=== PATIENT | male | born 1945 | race Caucasian/White ===

== ENCOUNTER → 2017-06-18 | Outpatient (CLI) | payer MEDICARE, OTHER ==
--- NOTE | 2017-06-18 15:43 | US ---
EXAMINATION TYPE: US carotid duplex BILAT DATE OF EXAM: 06/18/2017 COMPARISON: NONE CLINICAL HISTORY: 71-year-old male I65.23 Occlusion And Stenosis Of Bilateral Carotid. TECHNIQUE: Carotid duplex ultrasound examination. Indirect Doppler criteria was utilized. FINDINGS: Esquivel scale images show mild atherosclerotic changes at the left bifurcation. EXAM MEASUREMENTS: RIGHT: Peak Systolic Velocity (PSV) cm/sec ----- Right CCA: 105 ----- Right ICA: 130 ----- Right ECA: 177 ICA/CCA ratio: 1.2 RIGHT: End Diastole cm/sec ----- Right CCA: 25.1 ----- Right ICA: 33.3 ----- Right ECA: 26.5 LEFT: Peak Systolic Velocity (PSV) cm/sec ----- Left CCA: 99.2 ----- Left ICA: 105 ----- Left ECA: 159 ICA/CCA ratio: 1.1 LEFT: End Diastole cm/sec ----- Left CCA: 25.1 ----- Left ICA: 16.3 ----- Left ECA: 25.6 VERTEBRALS (direction of flow): Right Vertebral: Antegrade Left Vertebral: Antegrade Rhythm: Normal Sba Underwriter notes: there are some elevated velocities right ECA, and left ECA. IMPRESSION: No hemodynamically significant stenosis appreciated in either internal carotid artery. Criteria for Assigning % of Stenosis / Diameter reduction (Estimation based on the indirect measurements of the internal carotid artery velocities (ICA PSV). 1. Normal (no stenosis)=ICA PSV < 125 cm/s: ratio < 2.0: ICA EDV<40 cm/s. 2. Less than 50% stenosis=ICA PSV < 125 cm/s: ratio < 2.0: ICA EDV<40 cm/s. 3. 50 to 69% stenosis=ICA PSV of 125 to 230 cm/s: ration 2.0 ? 4.0: ICA EDV 40-100 cm/s. 4. Greater than 70% stenosis to near occlusion= ICA PSV > 230 cm/s: ratio > 4.0: ICA EDV > 100 cm/s. 5. Near occlusion= ICA PSV velocities may be low or undetectable: variable ratio and ICA EDV. 6. Total occlusion=unable to detect flow.
== END | disposition home or self-care (01) ==
LOC: RADUSWWP 14:42
PROVIDERS: ATTEND Family Medicine
DX: I65.23 Occlusion and stenosis of bilateral carotid arteries (principal)
CPT/HCPCS: 93880

== ENCOUNTER 2019-06-21 11:34 | Observation (INO) | payer MEDICARE, OTHER ==
[2019-06-21] MEDS ORDERED: SODIUM CHLORIDE 0.9% 500 ML 500 ML IV STA (12:03)
[2019-06-21 12:04] LABS: Glucose,Whole Blood 114 mg/dL (75-99)
--- NOTE | 2019-06-21 12:06 | ED ---
General Adult HPI - General Chief complaint: Neuro Symptoms/Deficit Stated complaint: confusion Time Seen by Provider: 06/21/19 11:51 Source: patient, RN notes reviewed, old records reviewed Mode of arrival: wheelchair Limitations: no limitations - History of Present Illness Initial comments: 73-year-old male history of hypertension diabetes presenting for evaluation of confusion, amnesia, and repetitive speech. Time course is not exactly known, it is believed the patient's symptoms began at approximately 9 AM this morning. He had taken a shower, called his who was out of the house and had repetitive speech, no reported slurred speech. Patient does not recall these phone calls, he does recall having taken a shower this morning at approximately 9 AM. He had made several additional calls to his noted which she remembers. He denies any headache. Denies focal numbness or weakness. Denies any symptoms at the time my evaluation with the exception of not remembering the events. No chest pain, no dyspnea, no fever, no nausea vomiting. Patient does take [place] for chronic pain, he took this earlier this morning, this is not abnormal he takes his medication daily. - Related Data Allergies Allergy/AdvReac Type Severity Reaction Status Date / Time No Known Allergies Allergy Verified 06/21/19 11:45 Review of Systems ROS Statement: Those systems with pertinent positive or pertinent negative responses have been documented in the HPI. ROS Other: All systems not noted in ROS Statement are negative. Past Medical History Past Medical History: Hyperlipidemia, Hypertension Additional Past Medical History / Comment(s): neuropathy in legs History of Any Multi-Drug Resistant Organisms: None Reported Past Surgical History: Hernia Repair, Orthopedic Surgery Additional Past Surgical History / Comment(s): right knee surgery, cancerous prostate removed, tarsal tunnel surgery on left foot. Past Psychological History: No Psychological Hx Reported Smoking Status: Never smoker Past Alcohol Use History: None Reported Past Drug Use History: None Reported General Exam Limitations: no limitations General appearance: alert, in no apparent distress Head exam: Present: atraumatic, normocephalic Eye exam: Present: normal appearance, PERRL, EOMI. Absent: scleral icterus ENT exam: Present: normal exam, mucous membranes moist Neck exam: Present: normal inspection. Absent: tenderness, meningismus Respiratory exam: Present: normal lung sounds bilaterally. Absent: respiratory distress, wheezes, rales Cardiovascular Exam: Present: regular rate, normal rhythm GI/Abdominal exam: Present: soft. Absent: distended, tenderness Extremities exam: Present: normal inspection, normal capillary refill. Absent: pedal edema Back exam: Present: normal inspection, full ROM Neurological exam: Present: alert, oriented X3, CN II-XII intact, other (No ataxia, normal finger to nose, 5 out of 5 strength in all extremities.). Absent: motor sensory deficit Psychiatric exam: Present: normal affect, normal mood Skin exam: Present: warm, dry, intact Course Vital Signs 06/21/19 06/21/19 06/21/19 11:40 11:56 12:00 Temperature 98.1 F Pulse Rate 73 68 67 Respiratory 17 12 18 Rate Blood Pressure 126/68 122/79 O2 Sat by Pulse 96 95 Oximetry 06/21/19 13:01 Temperature Pulse Rate 62 Respiratory 14 Rate Blood Pressure 138/67 O2 Sat by Pulse 95 Oximetry EKG Findings - EKG Comments: EKG Findings:: EKG: Sinus rhythm with PAC, rate of 67, OR interval 150, QRS duration 84, QTC 399, no definitive signs of ischemia, no ST segment elevation. Medical Decision Making - Medical Decision Making 73-year-old male presenting with an episode of confusion and amnesia. Patient well-appearing at the time my evaluation he has a nonfocal neurologic exam he is stable vital signs. Workup was initiated in the emergency department, patient has a EKG which shows sinus rhythm he is a head CT which is negative for intracranial hemorrhage mass effect. He has normal CBC, normal electrolytes. Chest x-ray negative for any acute cardiopulmonary disease. He is given an aspirin in the emergency department if symptoms are completely resolved consistent with suspected TIA. He will be admitted for neurology evaluation and further workup. - Lab Data Result diagrams: 06/21/19 12:20 06/21/19 12:20 Lab Results 06/21/19 06/21/19 06/21/19 Range/Units 11:58 12:20 12:20 WBC 5.3 (3.8-10.6) k/uL RBC 4.38 (4.30-5.90) m/uL Hgb 13.2 (13.0-17.5) gm/dL Hct 38.8 L (39.0-53.0) % MCV 88.6 (80.0-100.0) fL MCH 30.2 (25.0-35.0) pg MCHC 34.1 (31.0-37.0) g/dL RDW 13.4 (11.5-15.5) % Plt Count 168 (150-450) k/uL Neutrophils % 73 % Lymphocytes % 19 % Monocytes % 4 % Eosinophils % 1 % Basophils % 1 % Neutrophils # 3.9 (1.3-7.7) k/uL Lymphocytes # 1.0 (1.0-4.8) k/uL Monocytes # 0.2 (0-1.0) k/uL Eosinophils # 0.1 (0-0.7) k/uL Basophils # 0.0 (0-0.2) k/uL PT (9.0-12.0) sec INR (<1.2) APTT (22.0-30.0) sec Sodium 140 (137-145) mmol/L Potassium 4.2 (3.5-5.1) mmol/L Chloride 105 (98-107) mmol/L Carbon Dioxide 25 (22-30) mmol/L Anion Gap 10 mmol/L BUN 16 (9-20) mg/dL Creatinine 0.77 (0.66-1.25) mg/dL Est GFR (CKD-EPI)AfAm >90 (>60 ml/min/1.73 sqM) Est GFR (CKD-EPI)NonAf >90 (>60 ml/min/1.73 sqM) Glucose 100 H (74-99) mg/dL POC Glucose (mg/dL) 114 H (75-99) mg/dL POC Glu Formal Waiter/Waitress [place] Calcium 9.7 (8.4-10.2) mg/dL Total Bilirubin 0.9 (0.2-1.3) mg/dL AST 34 (17-59) U/L ALT 30 (21-72) U/L Alkaline Phosphatase 100 (38-126) U/L Total Protein 7.0 (6.3-8.2) g/dL Albumin 4.6 (3.5-5.0) g/dL 06/21/19 Range/Units 12:20 WBC (3.8-10.6) k/uL RBC (4.30-5.90) m/uL Hgb (13.0-17.5) gm/dL Hct (39.0-53.0) % MCV (80.0-100.0) fL MCH (25.0-35.0) pg MCHC (31.0-37.0) g/dL RDW (11.5-15.5) % Plt Count (150-450) k/uL Neutrophils % % Lymphocytes % % Monocytes % % Eosinophils % % Basophils % % Neutrophils # (1.3-7.7) k/uL Lymphocytes # (1.0-4.8) k/uL Monocytes # (0-1.0) k/uL Eosinophils # (0-0.7) k/uL Basophils # (0-0.2) k/uL PT 9.8 (9.0-12.0) sec INR 0.9 (<1.2) APTT 25.7 (22.0-30.0) sec Sodium (137-145) mmol/L Potassium (3.5-5.1) mmol/L Chloride (98-107) mmol/L Carbon Dioxide (22-30) mmol/L Anion Gap mmol/L BUN (9-20) mg/dL Creatinine (0.66-1.25) mg/dL Est GFR (CKD-EPI)AfAm (>60 ml/min/1.73 sqM) Est GFR (CKD-EPI)NonAf (>60 ml/min/1.73 sqM) Glucose (74-99) mg/dL POC Glucose (mg/dL) (75-99) mg/dL POC Glu Formal Waiter/Waitress ID Calcium (8.4-10.2) mg/dL Total Bilirubin (0.2-1.3) mg/dL AST (17-59) U/L ALT (21-72) U/L Alkaline Phosphatase (38-126) U/L Total Protein (6.3-8.2) g/dL Albumin (3.5-5.0) g/dL Disposition Clinical Impression: Transient cerebral ischemia Disposition: ADMITTED IP TO THIS [facility] Condition: Stable Is patient prescribed a controlled substance at d/c from ED?: No Referrals: Denis Dawson DO [Primary Care Provider] - 1-2 days Decision to Admit Reason: Admit from EC Decision Date: 06/21/19 Decision Time: 13:44
[2019-06-21 12:40] LABS: Basophils % (A) 1 %; Eosinophils # (A) 0.1 k/uL (0-0.7); Eosinophils % (A) 1 %; HCT 38.8 % (39.0-53.0); HGB 13.2 gm/dL (13.0-17.5); Lymphocytes % (A) 19 %; MCH 30.2 pg (25.0-35.0); MCHC 34.1 g/dL (31.0-37.0); MCV 88.6 fL (80.0-100.0); Mean Platelet Volume 7.5; Monocytes # (A) 0.2 k/uL (0-1.0); Monocytes % (A) 4 %; Neutrophils # (A) 3.9 k/uL (1.3-7.7); Neutrophils % (A) 73 %; Platelet Count 168 k/uL (150-450); RBC 4.38 m/uL (4.30-5.90); RDW 13.4 % (11.5-15.5); WBC 5.3 k/uL (3.8-10.6)
--- NOTE | 2019-06-21 12:42 | CT ---
EXAMINATION TYPE: CT brain wo con DATE OF EXAM: 06/21/2019 COMPARISON: None INDICATION: confusion DLP: 1113.4 mGycm, Automated exposure control for dose reduction was used. CONTRAST: None CT of the brain is performed utilizing 3 mm thick sections through the posterior fossa and 3 mm thick sections through the remaining calvarium. Study is performed within 24 hours of arrival to the hosp ital. No abnormal hyperdensity is present to suggest an acute intracranial hemorrhage. No mass lesion is evident. No acute infarcts are evident. Ventricles and sulci are appropriate for the patient age. Paranasal sinuses and mastoid air cells within the [id number] are clear. IMPRESSIONS: 1. No acute intracranial process.
--- NOTE | 2019-06-21 12:43 | XR ---
EXAMINATION TYPE: XR chest 2V DATE OF EXAM: 06/21/2019 COMPARISON: None INDICATION: Altered mental status TECHNIQUE: Frontal and lateral views of the chest are obtained. FINDINGS: The heart size is normal. The pulmonary vasculature is normal. The lungs are clear. IMPRESSION: 1. No acute pulmonary process.
[2019-06-21 12:46] LABS: INR 0.9 (<1.2); Partial Thromboplastin Time 25.7 sec (22.0-30.0); Prothrombin Time 9.8 sec (9.0-12.0)
[2019-06-21 12:48] LABS: ALT 30 U/L (21-72); AST 34 U/L (17-59); African American GFR (CKD) >90 (>60 ml/min/1.73 sqM); Albumin 4.6 g/dL (3.5-5.0); Alkaline Phosphatase 100 U/L (38-126); Anion Gap 10 mmol/L; Blood Urea Nitrogen 16 mg/dL (9-20); Calcium 9.7 mg/dL (8.4-10.2); Carbon Dioxide 25 mmol/L (22-30); Chloride 105 mmol/L (98-107); Glucose 100 mg/dL (74-99); Non-African American GFR(CKD) >90 (>60 ml/min/1.73 sqM); Potassium 4.2 mmol/L (3.5-5.1); Sodium 140 mmol/L (137-145); Total Bilirubin 0.9 mg/dL (0.2-1.3)
[2019-06-21] MEDS ORDERED: ASPIRIN 325 MG TAB PO STA (13:10)
--- NOTE | 2019-06-21 15:01 | US ---
EXAMINATION TYPE: US carotid duplex BILAT DATE OF EXAM: 06/21/2019 COMPARISON: Carotid ultrasound 2017 CLINICAL HISTORY: Stenosis. Confusion, exam done portable. EXAM MEASUREMENTS: RIGHT: Peak Systolic Velocity (PSV) cm/sec ----- Right CCA: 50.7 ----- Right ICA: 124.1 ----- Right ECA: 99.2 ICA/CCA ratio: 2.4 RIGHT: End Diastole cm/sec ----- Right CCA: 12.0 ----- Right ICA: 42.8 ----- Right ECA: 7.3 LEFT: Peak Systolic Velocity (PSV) cm/sec ----- Left CCA: 52.9 ----- Left ICA: 74.4 ----- Left ECA: 77.1 ICA/CCA ratio: 1.4 LEFT: End Diastole cm/sec ----- Left CCA: 12.7 ----- Left ICA: 23.0 ----- Left ECA: 8.7 VERTEBRALS (direction of flow): Right Vertebral: Antegrade Left Vertebral: Antegrade Rhythm: Normal Mild peripheral plaque. Borderline mild elevated velocity right internal carotid artery. IMPRESSION: No hemodynamically significant stenosis clearly seen in either internal carotid artery. Criteria for Assigning % of Stenosis / Diameter reduction (Estimation based on the indirect measurements of the internal carotid artery velocities (ICA PSV). 1. Normal (no stenosis)=ICA PSV < 125 cm/s: ratio < 2.0: ICA EDV<40 cm/s. 2. Less than 50% stenosis=ICA PSV < 125 cm/s: ratio < 2.0: ICA EDV<40 cm/s. 3. 50 to 69% stenosis=ICA PSV of 125 to 230 cm/s: ration 2.0 ? 4.0: ICA EDV 40-100 cm/s. 4. Greater than 70% stenosis to near occlusion= ICA PSV > 230 cm/s: ratio > 4.0: ICA EDV > 100 cm/s. 5. Near occlusion= ICA PSV velocities may be low or undetectable: variable ratio and ICA EDV. 6. Total occlusion=unable to detect flow.
--- NOTE | 2019-06-21 16:02 | ECHOF ---
Referral Reason:Thrombus MEASUREMENTS -------- HEIGHT: 175.3 cm WEIGHT: 103.0 kg BP: RVIDd: 2.6 cm (< 3.3) IVSd: 1.5 cm (0.6 - 1.1) LVIDd: 3.8 cm (3.9 - 5.3) LVPWd: 1.0 cm (0.6 - 1.1) IVSs: 1.5 cm LVIDs: 2.2 cm LVPWs: 2.0 cm LAESV Index (A-L): 27.50 ml/m Ao Diam: 2.9 cm (2.0 - 3.7) AV Cusp: 1.4 cm (1.5 - 2.6) LA Diam: 3.7 cm (2.7 - 3.8) MV EXCURSION: 13.883 mm (> 18.000) MV EF SLOPE: 88 mm/s (70 - 150) EPSS: 0.9 cm MV E Dhruv: 0.74 m/s MV DecT: 282 ms MV A Dhruv: 0.86 m/s MV E/A Ratio: 0.86 AV maxP.20 mmHg AV meanP.10 mmHg AR PHT: 864 ms RAP: 5.00 mmHg RVSP: 14.87 mmHg FINDINGS -------- Sinus rhythm. This was a technically adequate study. The left ventricular size is normal. There is mild concentric left ventricular hypertrophy. Overa ll left ventricular systolic function is normal with, an EF between 55 - 60 %. The diastolic fillin g pattern is normal for the age of the patient 10.28. The right ventricle is normal in size. The left atrial size is normal. Normal LA size by volume 22+/-6 ml/m2. The right atrial size is normal. Interatrial and interventricular septum intact. Aortic valve is trileaflet and is mildly thickened. There is mild aortic regurgitation. There is mild aortic stenosis present. Peak/mean gradient across the Aortic Valve is 18.20mmHg / 9.10mmHg. The mitral valve is normal. There is trace mitral regurgitation. The tricuspid valve appears structurally normal. Trace tricuspid regurgitation present. Right mauri tricular systolic pressure is normal at < 35 mmHg. There is no pulmonic regurgitation present. The aortic root size is normal. Normal inferior vena cava with normal inspiratory collapse consistent with estimated right atrial pre ssure of 5 mmHg. There is no pericardial effusion. CONCLUSIONS -------- 1. Sinus rhythm. 2. This was a technically adequate study. 3. The left ventricular size is normal. 4. There is mild concentric left ventricular hypertrophy. 5. Overall left ventricular systolic function is normal with, an EF between 55 - 60 %. 6. The diastolic filling pattern is normal for the age of the patient 10.28 7. The right ventricle is normal in size. 8. The left atrial size is normal. 9. Normal LA size by volume 22+/-6 ml/m2. 10. The right atrial size is normal. 11. Interatrial and interventricular septum intact. 12. Aortic valve is trileaflet and is mildly thickened. 13. There is mild aortic regurgitation. 14. There is mild aortic stenosis present. 15. Peak/mean gradient across the Aortic Valve is 18.20mmHg / 9.10mmHg. 16. The mitral valve is normal. 17. There is trace mitral regurgitation. 18. The tricuspid valve appears structurally normal. 19. Trace tricuspid regurgitation present. 20. Right ventricular systolic pressure is normal at < 35 mmHg. 21. There is no pulmonic regurgitation present. 22. The aortic root size is normal. 23. Normal inferior vena cava with normal inspiratory collapse consistent with estimated right atrial pressure of 5 mmHg. 24. There is no pericardial effusion. REGIONAL TRANSFER LIAISON: Bobbi Capps RDCS
[2019-06-21] MEDS ORDERED: HYDROcodone/APAP 10-325MG 1 EACH TAB PO PRN (16:45)
--- NOTE | 2019-06-21 16:49 | P.HPIM ---
History of Present Illness Patient is a pleasant 73-year-old male came in the because of an episode which lasted for few minutes of amnesia. Patient called his and was bit confused and repeated to. Patient denied any slurred speech denied any focal weakness tingling numbness. Headache nausea vomiting. Patient had a carotid Doppler. Which did not show any significant occlusive disease echocardiogram within normal limits lipid panel was ordered for tomorrow morning patient takes statin and aspirin at home. Patient will be monitored overnight with neuro checks. CAT scan of the head did not show any acute abnormality. Patient denied any headache is denied any history of migraine denied any seizure-like activity. Review of Systems REVIEW OF SYSTEMS: CONSTITUTIONAL: No fever, no malaise, no fatigue. HEENT: No recent visual problems or hearing problems. Denied any sore throat. CARDIOVASCULAR: No chest pain, orthopnea, PND, no palpitations, no syncope. PULMONARY: No shortness of breath, no cough, no hemoptysis. GASTROINTESTINAL: No diarrhea, no nausea, no vomiting, no abdominal pain. NEUROLOGICAL: No headaches, no weakness, no numbness. HEMATOLOGICAL: Denies any bleeding or petechiae. GENITOURINARY: Denies any burning micturition, frequency, or urgency. MUSCULOSKELETAL/RHEUMATOLOGICAL: Denies any joint pain, swelling, or any muscle pain. ENDOCRINE: Denies any polyuria or polydipsia. The rest of the 14-point review of systems is negative. Past Medical History Past Medical History: Hyperlipidemia, Hypertension Additional Past Medical History / Comment(s): neuropathy in legs History of Any Multi-Drug Resistant Organisms: None Reported Past Surgical History: Hernia Repair, Orthopedic Surgery Additional Past Surgical History / Comment(s): right knee surgery, cancerous prostate removed, tarsal tunnel surgery on left foot. Past Psychological History: No Psychological Hx Reported Smoking Status: Never smoker Past Alcohol Use History: None Reported Past Drug Use History: None Reported Medications and Allergies Home Medications Medication Instructions Recorded Confirmed Type Aspirin EC [Ecotrin Low Dose] 81 mg PO DAILY 06/21/19 06/21/19 History Hydrocodone/Acetaminophen [[place] 1 tab PO Q4H PRN 06/21/19 06/21/19 History 10-325] Losartan/Hydrochlorothiazide 1 tab PO DAILY 06/21/19 06/21/19 History [Losartan-Hctz 100-12.5 mg Tab] [place]-3 Fatty Acids/Fish Oil [Fish 1 cap PO DAILY 06/21/19 06/21/19 History Oil 1,000 mg Softgel] Pravastatin Sodium [Pravachol] 40 mg PO DAILY 06/21/19 06/21/19 History Pregabalin 200 mg PO BID 06/21/19 06/21/19 History rOPINIRole HCL [Requip] 2 mg PO BID 06/21/19 06/21/19 History Allergies Allergy/AdvReac Type Severity Reaction Status Date / Time No Known Allergies Allergy Verified 06/21/19 14:34 Physical Exam Vitals: Vital Signs Temp Pulse Resp BP Pulse Ox 06/21/19 14:52 63 16 135/76 99 06/21/19 14:20 82 16 132/68 99 06/21/19 13:01 62 14 138/67 95 06/21/19 12:00 67 18 122/79 95 06/21/19 11:56 68 12 06/21/19 11:40 98.1 F 73 17 126/68 96 Intake and Output 06/21/19 06/21/19 06/21/19 06:59 14:59 22:59 Intake Total 200 Balance 200 Intake: Oral 200 Other: Weight 102.965 kg PHYSICAL EXAMINATION: GENERAL: The patient is alert and oriented x3, not in any acute distress. Well developed, well nourished. HEENT: Pupils are round and equally reacting to light. EOMI. No scleral icterus. No conjunctival pallor. Normocephalic, atraumatic. No pharyngeal erythema. No thyromegaly. CARDIOVASCULAR: S1 and S2 present. No murmurs, rubs, or gallops. PULMONARY: Chest is clear to auscultation, no wheezing or crackles. ABDOMEN: Soft, nontender, nondistended, normoactive bowel sounds. No palpable organomegaly. MUSCULOSKELETAL: No joint swelling or deformity. EXTREMITIES: No cyanosis, clubbing, or pedal edema. NEUROLOGICAL: Gross neurological examination did not reveal any focal deficits. SKIN: No rashes. Results CBC & Chem 7: 06/21/19 12:20 06/21/19 12:20 Labs: Abnormal Lab Results - Last 24 Hours (Table) 06/21/19 06/21/19 06/21/19 Range/Units 11:58 12:20 12:20 Hct 38.8 L (39.0-53.0) % Glucose 100 H (74-99) mg/dL POC Glucose (mg/dL) 114 H (75-99) mg/dL Assessment and Plan Plan: -Episode of amnesia possible transient global amnesia, we'll rule out TIA or stroke stroke workup was already done as mentioned above and monitor him overnight possibility of discharge tomorrow patient will continue his aspirin and a statin. Patient can follow-up with the neurologist as an outpatient are do not believe patient will require an MRI at this time. -Hypertension -Hyperlipidemia -Peripheral neuropathy For above-mentioned chronic medical problems patient will be resumed and continued on home medications
[2019-06-21] MEDS: SODIUM CHLORIDE 0.9% 1,000 ML IV SCH (20:51)
[2019-06-21] MEDS: PREGABALIN 100 MG CAP PO SCH (20:52)
--- NOTE | 2019-06-21 20:55 | P.CNNES ---
History of Present Illness Consult date: 06/21/19 Reason for Consult: TIA Chief complaint: Confusion, amnesia, repetitive speech History of Present Illness: HISTORY OF PRESENT ILLNESS: Thank you for allowing me to evaluate this Mr. Shabbir Obando. Mr. Obando is a 73-year-old man with past medical history of Hyperlipidemia, hypertension, peripheral neuropathy in his legs, presenting to [facility] for confusion, amnesia and repetitive speech. Patient states that he had greeted his who was leaving for shopping this morning, went into the shower, and apparently had called his telling her that something was weird with his memory. Patient only remembers up to getting into the shower. had sent her son over to check up on him, and patient remembers opening the door for her soon and everything afterwards. There is a gap of about 30 minutes that patient does not remember anything about. Patient denies ever having similar symptoms. Denies headache, nausea, vomiting, double/blurry vision, weakness, numbness, tingling, recent sickness, stressors. Denies ever having similar episodes previously. PAST MEDICAL HISTORY: Hyperlipidemia, hypertension, peripheral neuropathy in his legs PAST SURGICAL HISTORY: Right knee surgery, cancer as prostate removal, tarsal tunnel surgery on left foot, hernia repair HOME MEDICATIONS: Lyrica, omega-3, aspirin, ropinirole, pravastatin, losartan-HCTZ, [place] ALLERGIES: NKDA SOCIAL HISTORY: Never smoker. REVIEW OF SYSTEMS: The 14 systems are reviewed and no additional points are identified compared to the review of systems documented history and physical PHYSICAL EXAMINATION: VITAL SIGNS: T 97.4 HR 62 RR 16 BP 146/82 O2 sat 96% on RA GEN.: NAD, pleasant and cooperative HEENT: NCAT, sclera without icterus NECK: Supple SKIN AND EXTREMITIES: Warm to touch, no edema NEURO: MENTAL STATUS: Patient alert and oriented to self, place, time. Able to name the current president. Speech fluent, able to name and repeat, following all commands readily. No right and left disorientation, extinction to double s imultaneous stimulation, finger agnosia, neglect. CRANIAL NERVES II THROUGH XII: II: Pupils are equal and reactive to light symmetrically. No afferent pupillary defect. Visual graf are intact. III, IV, : No ptosis. Extraocular movements full. No nystagmus. V: Facial sensation intact from V1-3. VII. No clear facial asymmetry. VIII: Hearing intact to finger rub bilaterally. IX, X: Symmetric palate elevation. XI: Shoulder shrug intact. XII: Tongue midline without fasciculation or atrophy. MOTOR: Normal bulk/tone. No pronator drift or tremor. Strength is 5/5 throughout all 4 extremities. SENSORY: Intact to light touch in all 4 extremities. Romberg is negative. REFLEXES: 2+ throughout. Toes are downgoing. COORDINATION: Finger to nose intact. No dysmetria. GAIT: Narrow-based and stable. Able to toe/heel/tandem walk DIAGNOSTIC TESTING: LABORATORY: WBC 5.3 hemoglobin 13.2 platelet 168 sodium 140 potassium 4.2 chloride 105 bicarb 25 BUN 16 creatinine 0.77 glucose 100 AST 34 ALT 30 alk phos 100 IMAGING: CT head without contrast 06/21/2019: No acute intracranial process. TTE 06/21/19: SR. LV, LA, RV, RA sizes are noral. EF 55-60%. Interatrial and interventricular septum intact Carotid Doppler 06/21/19: No hemodynamically significant stenosis clearly seen in either internal carotid artery. EKG 06/21/19: SR with premature atrial complexes. ASSESSMENT: 73-year-old man with past medical history of hyperlipidemia, hypertension, peripheral neuropathy in his legs, presenting to [facility] for confusion, amnesia and repetitive speech. Patient has about 30 mintes of amnesic episodes this morning. Ddx include transient global amnesia vs. possible seizure. Patient with risk factors for stroke. RECOMMENDATIONS: 1. MRI brain without contrast 2. CTA of head and neck with and without contrast 3. Transthoracic echocardiogram 4. Cardiac monitoring 5. Permissive HTN for 24-48 hours SBP >220. Give labetalol 10mg IV q1h PRN for SBP >220 DBP >110 6. ASA 81mg qday and Plavix 75mg qday (dual antiplatelet therapy for 3 weeks per POINT trial, then Aspirin 81mg qday only) 7. Atorvastatin 80mg qhs 8. Labs: A1C, TSH, FLP 9. PT/OT/ST per protocol 10. Discussed with patient about stroke prevention guidelines. Medication compliance, hypertension/diabetes control, lifestyle changes including no smoking, drinking in moderation, losing weight, exercising, eating healthier 11. Neurology will continue to follow 12. Patient needs to follow up with neurologist as outpatient with her 1-2 weeks of discharge 13. Patient should get routine EEG as outpatient Past Medical History Past Medical History: Hyperlipidemia, Hypertension Additional Past Medical History / Comment(s): neuropathy in legs History of Any Multi-Drug Resistant Organisms: None Reported Past Surgical History: Hernia Repair, Orthopedic Surgery Additional Past Surgical History / Comment(s): right knee surgery, cancerous prostate removed, tarsal tunnel surgery on left foot. Past Anesthesia/Blood Transfusion Reactions: No Reported Reaction Additional Past Anesthesia/Blood Transfusion Reaction / Comment(s): no hx of blood transfusion Past Psychological History: No Psychological Hx Reported Smoking Status: Never smoker Past Alcohol Use History: None Reported Past Drug Use History: None Reported - Past Family History Father History Unknown: Yes Mother Family Medical History: Coronary Artery Disease (CAD) Additional Family Medical History / Comment(s): CABG Medications and Allergies Home Medications Medication Instructions Recorded Confirmed Type Aspirin EC [Ecotrin Low Dose] 81 mg PO DAILY 06/21/19 06/21/19 History Hydrocodone/Acetaminophen [[place] 1 tab PO Q4H PRN 06/21/19 06/21/19 History 10-325] Losartan/Hydrochlorothiazide 1 tab PO DAILY 06/21/19 06/21/19 History [Losartan-Hctz 100-12.5 mg Tab] [place]-3 Fatty Acids/Fish Oil [Fish 1 cap PO DAILY 06/21/19 06/21/19 History Oil 1,000 mg Softgel] Pravastatin Sodium [Pravachol] 40 mg PO DAILY 06/21/19 06/21/19 History Pregabalin 200 mg PO BID 06/21/19 06/21/19 History rOPINIRole HCL [Requip] 2 mg PO BID 06/21/19 06/21/19 History Allergies Allergy/AdvReac Type Severity Reaction Status Date / Time No Known Allergies Allergy Verified 06/21/19 14:34 Physical Examination - Vital Signs Vital Signs: Vital Signs Temp Pulse Pulse Resp BP BP Pulse Ox 06/21/19 16:45 62 16 06/21/19 15:38 97.4 F L 62 16 146/82 96 06/21/19 14:52 63 16 135/76 99 06/21/19 14:20 82 16 132/68 99 06/21/19 13:01 62 14 138/67 95 06/21/19 12:00 67 18 122/79 95 06/21/19 11:56 68 12 06/21/19 11:40 98.1 F 73 17 126/68 96 Intake and Output 06/21/19 06/21/19 06/21/19 06:59 14:59 22:59 Intake Total 200 Balance 200 Intake: Oral 200 Other: Weight 102.965 kg 102.965 kg Results - Laboratory Findings CBC and BMP: 06/21/19 12:20 06/21/19 12:20 Abnormal Lab Findings: Abnormal Labs 06/21/19 06/21/19 06/21/19 11:58 12:20 12:20 Hct 38.8 L Glucose 100 H POC Glucose (mg/dL) 114 H
[2019-06-21] MEDS ORDERED: ATORVASTATIN 80 MG TAB PO SCH (21:00)
[2019-06-22 07:35] VITALS: BP 142/79; PULSE 79; RESP 16; TEMP 97.5
[2019-06-22] MEDS: PREGABALIN 100 MG CAP PO SCH (08:34)
[2019-06-22] MEDS: SODIUM CHLORIDE 0.9% 1,000 ML IV SCH (08:41)
[2019-06-22] MEDS ORDERED: LOSARTAN PO SCH (09:00)
[2019-06-22] MEDS ORDERED: ASPIRIN 325 MG TAB PO SCH ×2 (09:00→12:00)
[2019-06-22] MEDS ORDERED: LOSARTAN 50 MG TAB PO SCH (09:00)
[2019-06-22] MEDS ORDERED: NON FORMULARY DRUG (Omega-3 Fatty Acids/Fish Oil [Fish Oil 1,000 Mg Softgel] 1 CAP) PO SCH (09:00)
[2019-06-22] MEDS ORDERED: HYDROCHLOROTHIAZIDE PO SCH (09:00)
[2019-06-22] MEDS ORDERED: HYDROCHLOROTHIAZIDE 12.5 MG CAP PO SCH (09:00)
--- NOTE | 2019-06-22 13:17 | P.DS ---
Providers Date of admission: 06/21/19 13:41 Attending physician: Doris Lord Consults: 06/21/19 13:42 Consult Physician Routine Consulting Provider: María Ravi Reason/Comments: TIA Do you want consulting provider notified?: Yes [facility] [place] [facility] Course: patient appears to have transient global amnesia was evaluated for TIA workup with carotid Doppler and echocardiogram are negative patient will undergo MRI as an outpatient , dietary counseling was provided as a patient's LDL is still high in spite of 40 mg of atorvastatin he takes at home. And EEG will be obtained as an outpatient. Patient will be discharged today. PHYSICAL EXAMINATION: GENERAL: The patient is alert and oriented x3, not in any acute distress. Well developed, well nourished. HEENT: Pupils are round and equally reacting to light. EOMI. No scleral icterus. No conjunctival pallor. Normocephalic, atraumatic. No pharyngeal erythema. No thyromegaly. CARDIOVASCULAR: S1 and S2 present. No murmurs, rubs, or gallops. PULMONARY: Chest is clear to auscultation, no wheezing or crackles. ABDOMEN: Soft, nontender, nondistended, normoactive bowel sounds. No palpable organomegaly. MUSCULOSKELETAL: No joint swelling or deformity. EXTREMITIES: No cyanosis, clubbing, or pedal edema. NEUROLOGICAL: Gross neurological examination did not reveal any focal deficits. SKIN: No rashes. Please refer to my HPI for further details of hospitalization course and other medical problems that were addressed. Patient Condition at Discharge: Stable Plan - Discharge Summary Discharge Rx Participant: No New Discharge Prescriptions: No Action Pregabalin 200 mg PO BID [place]-3 Fatty Acids/Fish Oil [Fish Oil 1,000 mg Softgel] 1 cap PO DAILY Aspirin EC [Ecotrin Low Dose] 81 mg PO DAILY rOPINIRole HCL [Requip] 2 mg PO BID Pravastatin Sodium [Pravachol] 40 mg PO DAILY Losartan/Hydrochlorothiazide [Losartan-Hctz 100-12.5 mg Tab] 1 tab PO DAILY Hydrocodone/Acetaminophen [[place] 10-325] 1 tab PO Q4H PRN PRN Reason: Pain Discharge Medication List Aspirin EC [Ecotrin Low Dose] 81 mg PO DAILY 06/21/19 [History] Hydrocodone/Acetaminophen [[place] 10-325] 1 tab PO Q4H PRN 06/21/19 [History] Losartan/Hydrochlorothiazide [Losartan-Hctz 100-12.5 mg Tab] 1 tab PO DAILY 06/21/19 [History] [place]-3 Fatty Acids/Fish Oil [Fish Oil 1,000 mg Softgel] 1 cap PO DAILY 06/21/19 [History] Pravastatin Sodium [Pravachol] 40 mg PO DAILY 06/21/19 [History] Pregabalin 200 mg PO BID 06/21/19 [History] rOPINIRole HCL [Requip] 2 mg PO BID 06/21/19 [History] Follow up Appointment(s)/Referral(s): Idalia Vasquez MD [Medical Doctor] - 1 Week (please call office when open to make follow up appointment) Denis Dawson DO [Primary Care Provider] - 3 Days (please call office when open to make follow up appointment) Patient Instructions/Handouts: Transient Ischemic Attack (DC) Discharge Disposition: HOME SELF-CARE
--- NOTE | 2019-06-22 19:26 | P.PN ---
Progress Note - Text Progress Note Date: 06/22/19 SUBJECTIVE/INTERVAL EVENTS: No acute overnight events. Patient with no complaints. No headache, nausea, vomiting, weakness, numbness, tingling, double/blurry vision. PHYSICAL EXAMINATION: VITAL SIGNS: T 98.4 HR 71 RR 17 BP 145/85 O2 sat 98% on RA GEN.: NAD, pleasant and cooperative HEENT: NCAT, sclera without icterus NECK: Supple SKIN AND EXTREMITIES: Warm to touch, no edema NEURO: MENTAL STATUS: Patient alert and oriented to self, place, time. Able to name the current president. Speech fluent, able to name and repeat, following all commands readily. No right and left disorientation, extinction to double simultaneous stimulation, finger agnosia, neglect. CRANIAL NERVES II THROUGH XII: II: Pupils are equal and reactive to light symmetrically. No afferent pupillary defect. Visual graf are intact. III, IV, : No ptosis. Extraocular movements full. No nystagmus. V: Facial sensation intact from V1-3. VII. No clear facial asymmetry. VIII: Hearing intact to finger rub bilaterally. IX, X: Symmetric palate elevation. XI: Shoulder sh rug intact. XII: Tongue midline without fasciculation or atrophy. MOTOR: Normal bulk/tone. No pronator drift or tremor. Strength is 5/5 throughout all 4 extremities. SENSORY: Intact to light touch in all 4 extremities. Romberg is negative. REFLEXES: 2+ throughout. Toes are downgoing. COORDINATION: Finger to nose intact. No dysmetria. GAIT: Narrow-based and stable. Able to toe/heel/tandem walk DIAGNOSTIC TESTING: LABORATORY: WBC 5.3 hemoglobin 13.2 platelet 168 sodium 140 potassium 4.2 chloride 105 bicarb 25 BUN 16 creatinine 0.77 glucose 100 AST 34 ALT 30 alk phos 100 TSH 0.972 To 229 LDL 140 HDL 41 triglycerides 239tal cholesterol IMAGING: CT head without contrast 06/21/2019: No acute intracranial process. TTE 06/21/19: SR. LV, LA, RV, RA sizes are noral. EF 55-60%. Interatrial and interventricular septum intact Carotid Doppler 06/21/19: No hemodynamically significant stenosis clearly seen in either internal carotid artery. EKG 06/21/19: SR with premature atrial complexes. Cardiac monitoring: no atrial arrhythmia since admission ASSESSMENT: 73-year-old man with past medical history of hyperlipidemia, hypertension, peripheral neuropathy in his legs, presenting to [facility] for confusion, amnesia and repetitive speech. Patient has about 30 mintes of amnesic episodes this morning. Ddx include transient global amnesia vs. possible seizure. Patient with risk factors for stroke. MRI brain w/o contrast can be obtained as outpatient. RECOMMENDATIONS: 1. MRI brain without contrast to be obtained as outpatient 2. ASA 81mg qday and Plavix 75mg qday (dual antiplatelet therapy for 3 weeks per POINT trial, then Aspirin 81mg qday only) 3. patient states he had taken lipitor before and broke out in rashes. He had been taking pravastatin 40mg every other day to make sure he doesn't have a reaction. Patient will start taking it everyday 4. Labs: A1C 5. Discussed with patient about stroke prevention guidelines. Medication compliance, hypertension/diabetes control, lifestyle changes including no smoking, drinking in moderation, losing weight, exercising, eating healthier 6. Patient needs to follow up with neurologist as outpatient with her 1-2 weeks of discharge 7. Patient will get routine EEG as outpatient 8. Neurology will sign off at this time. Please feel free to contact Neurology again if with additional questions or concerns.
[2019-06-23 11:24] LABS: Hemoglobin A1C 5.5 % (4.0-6.0)
== END 2019-06-22 12:27 | disposition home or self-care (01) ==
LOC: EC 11:34 → 3SCARD 13:41
PROVIDERS: ADMIT Internal Medicine; ATTEND Internal Medicine
DX: R41.3 Other amnesia (principal); R41.0 Disorientation, unspecified; R47.89 Other speech disturbances; E78.5 Hyperlipidemia, unspecified; I10 Essential (primary) hypertension; G62.9 Polyneuropathy, unspecified; G89.29 Other chronic pain; E11.9 Type 2 diabetes mellitus without complications; Z82.49 Family history of ischemic heart disease and other diseases of the circulatory system; Z90.79 Acquired absence of other genital organ(s); Z79.82 Long term (current) use of aspirin; Z79.899 Other long term (current) drug therapy; Z79.891 Long term (current) use of opiate analgesic
CPT/HCPCS: 96360; 99285; 36415; 93005; 93306; 80061; 80053; 84443; 85025; 85610; 85730; 83036; 71046; 93880; 70450; G0378 ×2

== ENCOUNTER → 2019-06-29 | Outpatient (CLI) | payer MEDICARE ==
--- NOTE | 2019-08-07 22:52 | EEG ---
ELECTROENCEPHALOGRAM REPORT DATE OF PROCEDURE: 06/29/2019 ELECTROENCEPHALOGRAM (EEG) REPORT: TECHNIQUE: A routine 18-channel EEG was performed with video using the 10/20 international electrode placement system. HISTORY: Patient admitted to the hospital before Thanksgiving for a memory lapse. Patient was home alone and called his when he could not recall the morning. Patient remembers dialing the phone but nothing else. CURRENT MEDICATIONS: None. STUDY DURATION: 22 minutes. FINDINGS: BACKGROUND: The background activity consisted of 8 to 9 Hz rhythmic waveforms symmetrically distributed over both posterior quadrants. ACTIVATION: Hyperventilation: Not performed. Photic stimulation: Symmetric driving seen. Sleep: Drowsy. ABNORMALITIES: None. IMPRESSION: Normal EEG. No epileptiform activity was present. No seizures were recorded. MMODL / IJN: [id number] / MEDINA
== END | disposition home or self-care (01) ==
LOC: NEUROMAIN 10:46
PROVIDERS: ATTEND Internal Medicine
DX: R56.9 Unspecified convulsions (principal)
CPT/HCPCS: 95816

== ENCOUNTER → 2019-07-06 | Outpatient (CLI) | payer MEDICARE ==
--- NOTE | 2019-07-06 15:59 | MR ---
MR brain without contrast HISTORY: Memory loss for 2 hours, TIA Multiplanar multisequence imaging through the brain Comparison to CT brain 06/21/2019 There is no restricted diffusion. Inflammatory changes are present in the mastoid air cells on the ri ght. Cerebellopontine angles, corpus callosum, pituitary, cervical medullary junction are normal. The re is no hemorrhage or hydrocephalus. The orbits show symmetric appearance. Mild mucosal disease pres ent in the maxillary sinus, ethmoid air cells. There are normal vascular flow voids. Periventricular and subcortical, juxtacortical and scattered hyperintensities are present on inversion recovery T2-we ighted sequences. Approximately 15-20 lesions are present. There is mild age-related atrophy. impression: Age-related changes of atrophy and probable chronic small vessel ischemia. Sinus disease, correlate for right mastoiditis.
== END | disposition home or self-care (01) ==
LOC: RADMRIMAIN 13:19
PROVIDERS: ATTEND Internal Medicine
DX: G31.9 Degenerative disease of nervous system, unspecified (principal); G45.9 Transient cerebral ischemic attack, unspecified
CPT/HCPCS: 70551

== ENCOUNTER → 2021-07-15 | Outpatient (CLI) | payer MEDICARE ==
--- NOTE | 2021-07-15 17:06 | CT ---
EXAMINATION TYPE: CT abdomen w con DATE OF EXAM: 07/15/2021 COMPARISON: None HISTORY: left sided abdominal pain, constipation CT DLP: 1212.9 mGycm Automated exposure control for dose reduction was used. CONTRAST: Performed with IV Contrast, patient injected with 100 mL of Isovue 300. There is oral and IV contrast. Lung bases are clear. There is no pleural effusion. Heart size is normal. There is no pericardial eff usion. Liver spleen stomach pancreas gallbladder appear intact. The bile ducts are nondilated. There is no adrenal mass. Kidneys have normal size. There is left-sided hydronephrosis and hydrourete r. Right kidney show satisfactory contrast opacification. There is no hydronephrosis. Delayed images show a delayed left side pyelogram. There is increased density surrounding the lower abdominal aorta measuring up to 2.5 cm in thickness. This extends to the aortic bifurcation. The margins are somewhat indistinct. There is some mild fat stranding in the retroperitoneum. There are a few sigmoid diverticula. There is no sign of diverticul itis. Appendix is partly seen and appears normal. There is no ascites. There is no evidence of free a ir. There is no bowel obstruction. The lumbar vertebra have normal alignment. There is degenerative disc space narrowing in the lumbar s pine with spur formation. There is no compression fracture. IMPRESSION: There is retroperitoneal masslike density surrounding the lower abdominal aorta. This cou ld be malignant adenopathy or inflammatory process such as aortitis. A chronic leaking abdominal aort a is also possible. No drainable fluid collection. There is apparent secondary obstruction of the lef t kidney with left-sided hydronephrosis and involvement of the proximal left ureter.
== END | disposition home or self-care (01) ==
LOC: RADCTMAIN 15:55
PROVIDERS: ATTEND Physician Assistant
DX: K59.00 Constipation, unspecified (principal); N13.1 Hydronephrosis with ureteral stricture, not elsewhere classified
CPT/HCPCS: 74160; Q9967

== ENCOUNTER → 2021-09-05 | Outpatient (CLI) | payer MEDICARE ==
--- NOTE | 2021-09-08 05:35 | PE ---
EXAMINATION TYPE: PET CT fusion whole body DATE OF EXAM: 09/05/2021 COMPARISON: CT abdomen July 15, 2021 HISTORY: Retroperitoneal mass, abnormal CT . Left-sided pain. Mass on ureter stent. Abnormal CT. Hi story of prostate cancer. TECHNIQUE: Following the intravenous administration of 10.8 mCi of F-18 FDG, whole body images are p erformed from the top of skull to the bottom of feet as requested. Images are reviewed on the comput er in the coronal, axial, and sagittal planes. Reconstructed rotating images are created on independ ent workstation and reviewed on the computer. A localization and attenuation correction CT is perfo rmed in conjunction with the PET scan. Blood glucose level equals 110 SCAN: Initial Scan FINDINGS: HEAD AND NECK: No areas of abnormal hypermetabolic uptake. CHEST, MEDIASTINUM, AND HILAR REGION: No areas of abnormal hypermetabolic uptake. ABDOMEN AND PELVIS: Surrounding the abdominal aorta, there is abnormal soft tissue redemonstrated tho ugh less prominent, it is ametabolic near axial image 199. Persistent left-sided hydronephrosis despi te ureter stent presence. OSSEOUS STRUCTURES: No areas of abnormal hypermetabolic uptake. LOWER EXTREMITIES: No abnormal hypermetabolic uptake. OTHER CT: Low lung volumes and mild cardiomegaly. Vacuum disc lumbosacral junction. Moderate to large right knee suprapatellar joint effusion. Bilateral medial tibiofemoral compartment joint space loss. IMPRESSION: Lack of hypermetabolic uptake in tissue surrounding abdominal aorta is suggestive of retr operitoneal fibrosis over metastatic disease or lymphoma. No areas of abnormal hypermetabolic uptake identified on this study.
== END | disposition home or self-care (01) ==
LOC: RADPETMAIN 12:07
PROVIDERS: ATTEND Urology
DX: R93.5 Abnormal findings on diagnostic imaging of other abdominal regions, including retroperitoneum (principal); Z85.46 Personal history of malignant neoplasm of prostate
CPT/HCPCS: 78816; A9552

== ENCOUNTER → 2021-10-20 | Outpatient (CLI) | payer MEDICARE ==
--- NOTE | 2021-10-20 11:47 | XR ---
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 No suspicious calcification seen. Nonobstructive bowel gas pa ttern. Mild scattered stool. Impression: Left-sided ureteral stent. Nonobstructive bowel gas pattern. Mild stool.
== END | disposition home or self-care (01) ==
LOC: RADXRMAIN 10:11
PROVIDERS: ATTEND Urology
DX: R19.5 Other fecal abnormalities (principal); Z96.0 Presence of urogenital implants
CPT/HCPCS: 74018

== ENCOUNTER → 2021-11-26 | Outpatient (CLI) | payer MEDICARE ==
[2021-11-26 10:17] LABS: African American GFR (CKD) >90 (>60 ml/min/1.73 sqM); Blood Urea Nitrogen 22 mg/dL (9-20); Non-African American GFR(CKD) 88 (>60 ml/min/1.73 sqM)
--- NOTE | 2021-11-26 11:53 | CT ---
EXAMINATION TYPE: CT abdomen pelvis w con DATE OF EXAM: 11/26/2021 COMPARISON: 07/15/2021 HISTORY: Anemia CT DLP: 1844.8 mGycm CONTRAST: CT scan of the abdomen and pelvis is performed with Oral Contrast and with IV Contrast, patient injec frank with 100 mL of Isovue 300. FINDINGS: LUNG BASES-: No visible nodule. No infiltrate. LIVER/GB: No calcified gallstones. No space occupying hepatic lesion. Biliary tree is of normal ca liber. PANCREAS: No inflammation. No distinct mass. SPLEEN: No splenic enlargement. No lesion seen. ADRENALS: No nodule. No thickening. KIDNEYS/BLADDER: No hydronephrosis. No nephrolithiasis. No distinct renal mass. Urinary bladder g rossly unremarkable. BOWEL: Normal appendix. Normal bowel caliber. No inflammation. There is evidence of diverticulosis. GENITAL ORGANS: No gross abnormality. LYMPH NODES: No greater than 1cm abdominal or pelvic lymph nodes are appreciated. AORTA: There is infrarenal abdominal aortic aneurysm measuring 3.4 cm AP dimension. Previously noted soft tissue surrounding the distal abdominal aorta has essentially resolved. OSSEOUS STRUCTURES: Severe degenerative changes lumbar spine. OTHER: No significant additional abnormality is seen. IMPRESSION: 1. There is infrarenal abdominal aortic aneurysm measuring 3.4 cm AP dimension. Previously noted soft tissue surrounding the distal abdominal aorta has essentially resolved.
== END | disposition home or self-care (01) ==
LOC: RADCTMAIN 09:17
PROVIDERS: ATTEND Internal Medicine Hematology & Oncology
DX: I71.4 Abdominal aortic aneurysm, without rupture (principal); D64.9 Anemia, unspecified
CPT/HCPCS: 82565; 84520; 74177; 36415; Q9967

== ENCOUNTER → 2022-01-01 | Outpatient (CLI) | payer MEDICARE ==
[~2022-01-01] MED LIST: FUROSEMIDE 10 MG/ML 2 ML VIAL IV ONE
--- NOTE | 2022-01-06 06:41 | NM ---
EXAMINATION TYPE: NM lasix renogram DATE OF EXAM: 01/01/2022 COMPARISON: CT abdomen and pelvis November 26, 2021 HISTORY: Unspecified hydronephrosis. Following administration of 10.0 mCi Tc 99m MAG3 with 20mg Lasix. Immediate images post injection FINDINGS: Dynamic arterial phase imaging show symmetric radiotracer uptake bilaterally. There is sati sfactory symmetric excretion bilaterally. There is good response to Lasix bilaterally. Left: 53.1 %. Right: 46.9 %. Max renal flow left: 3 minutes. Max renal flow right: 3 minutes. T 1/2 left: 23.4 minutes. T 1/2 right: 27.8 minutes. IMPRESSION: Essentially normal study. No obstruction or asymmetric diminished renal function to eithe r kidney.
== END | disposition home or self-care (01) ==
LOC: RADNMMAIN 12:49
PROVIDERS: ATTEND Urology
DX: N13.30 Unspecified hydronephrosis (principal)
CPT/HCPCS: 78708; A9562

== ENCOUNTER → 2022-03-05 | Outpatient (CLI) | payer MEDICARE ==
[2022-03-05 08:42] LABS: African American GFR (CKD) >90 (>60 ml/min/1.73 sqM); Blood Urea Nitrogen 32 mg/dL (9-20); Non-African American GFR(CKD) 84 (>60 ml/min/1.73 sqM)
--- NOTE | 2022-03-05 10:02 | CT ---
EXAMINATION TYPE: CT abdomen pelvis w con CT DLP: 0.4 mGycm, Automated exposure control for dose reduction was used. 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 Sagittal and coronal reformats were created on a Live[employer] workstation. Contrast used:100 mL of Isovue 300 with IV Contrast, Oral contrast used: with Oral Contrast FINDINGS: LOWER CHEST: Unremarkable ABDOMEN LIVER: Diffusely hypoattenuating parenchyma. GALLBLADDER AND BILE DUCTS: Unremarkable. PANCREAS: Unremarkable. SPLEEN: Unremarkable. ADRENAL GLANDS: Unremarkable. KIDNEYS AND URETERS: No evidence of hydronephrosis or renal calculus. The ureters are unremarkable. . PELVIS BLADDER: Unremarkable REPRODUCTIVE: Unremarkable. ABDOMEN & PELVIS STOMACH AND BOWEL: No evidence of bowel obstruction. Appendix is normal scattered clonic diverticula present. PERITONEUM: No evidence of pneumoperitoneum or free fluid. VASCULATURE: Mild atherosclerotic calcifications are present throughout the abdominal aorta and its b ranches. Infrarenal fusiform aneurysmal dilation up to 3.1 cm. Prior soft tissue around the aorta see n on 07/15/2021 has decreased with minimal remaining soft tissue in the retroperitoneum on today's ex am most pronounced around the fusiform aortic aneurysm and near the bifurcation of the aorta. MUSCULOSKELETAL: No acute osseous abnormalities, multilevel disc degeneration changes are seen throug hout the spine with facet joint arthropathy, vacuum disc phenomena, and disc space narrowing. There i s at least mild spinal canal stenosis at L4-L5 and L3-L4 secondary to degeneration changes. Moderate to severe bilateral neural foraminal stenosis at L5-S1. LYMPH NODES: No gross evidence for lymphadenopathy. SOFT TISSUE/ABDOMINAL WALL: Bilateral fat filled inguinal hernias. IMPRESSION: 1. Minimal retroperitoneal soft tissue around the aorta on today's exam when comparing to 07/15/2021. No gross acute process within the abdomen or pelvis. 2. Hepatic steatosis. 3. Infrarenal aortic fusiform aneurysmal dilation up to 3.1 cm.
== END | disposition home or self-care (01) ==
LOC: RADCTMAIN 07:43
PROVIDERS: ATTEND Internal Medicine Hematology & Oncology
DX: D60.9 Acquired pure red cell aplasia, unspecified (principal); K76.0 Fatty (change of) liver, not elsewhere classified; I71.4 Abdominal aortic aneurysm, without rupture
CPT/HCPCS: 82565; 84520; 74177; 36415; Q9967 ×2

== ENCOUNTER → 2022-05-26 | Outpatient (CLI) | payer MEDICARE ==
[2022-05-26 12:08] LABS: African American GFR (CKD) >90 (>60 ml/min/1.73 sqM); Blood Urea Nitrogen 20 mg/dL (9-20); Non-African American GFR(CKD) 83 (>60 ml/min/1.73 sqM)
--- NOTE | 2022-05-26 14:34 | CT ---
EXAMINATION TYPE: CT abdomen pelvis w con DATE OF EXAM: 05/26/2022 COMPARISON: 03/05/2022, 07/15/2021 HISTORY: pt states that he has a h/o fibrosis of right kidney CT DLP: 1675 mGycm Automated exposure control for dose reduction was used. CONTRAST: CT scan of the abdomen pelvis is performed with IV Contrast, patient injected with 80 mL of Isovue 30 0. FINDINGS- LUNG BASES-linear changes left lung base most SCAR or atelectasis. LIVER/GB- No gross abnormality is appreciated. PANCREAS- No gross abnormality is seen. SPLEEN- No gross abnormality is seen. ADRENALS- No gross abnormality is seen. KIDNEYS/BLADDER- no hydronephrosis or nephrolithiasis. There is a exophytic midpole posterior 7 mm ri ght renal lesion measuring 4 Hounsfield units compatible with cyst. Additional 1 mm hypodensity too s mall to characterize but statistically most likely related to cyst. BOWEL- diverticulosis of the colon with no CT evidence of diverticulitis. Bilateral fat-containing i nguinal hernias are noted. LYMPH NODES- No greater than 1cm abdominal or pelvic lymph nodes are appreciated. OSSEOUS STRUCTURES- multilevel hypertrophic and severe degenerative disc disease with facet arthropa thy and multilevel foraminal impingement. OTHER- remains minimal retroperitoneal thickening anterior lateral aorta measuring diameter of 4 mm similar to the prior exam of 04/05/2022 and markedly improved relative to the exam of 07/15/2021. No n ew retroperitoneal soft tissue abnormality identified. Slender remains mild fusiform dilation of the infrarenal abdominal aorta extending to the aortic bifurcation 3.5 cm. Bladder is somewhat low-lying in position. Correlate for cystocele. IMPRESSION- 1. Stable minimal retroperitoneal soft tissue attenuation along the anterior and anterolateral margin s of the aorta measuring thickness of 4 mm unchanged from prior exam but markedly improved from the e xam of 07/15/2021. 2. 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 3. Correlate for small cystocele. 4. Diverticulosis with no CT evidence of diverticulitis.
== END | disposition home or self-care (01) ==
LOC: RADCTMAIN 10:44
PROVIDERS: ATTEND Internal Medicine Hematology & Oncology
DX: I71.40 Abdominal aortic aneurysm, without rupture, unspecified (principal); K57.30 Diverticulosis of large intestine without perforation or abscess without bleeding
CPT/HCPCS: 82565; 84520; 74177; 36415; Q9967

== ENCOUNTER → 2022-12-04 | Outpatient (CLI) | payer MEDICARE ==
[2022-12-04 09:38] LABS: African American GFR (CKD) >90 (>60 ml/min/1.73 sqM); Blood Urea Nitrogen 22 mg/dL (9-20); Non-African American GFR(CKD) >90 (>60 ml/min/1.73 sqM)
--- NOTE | 2022-12-04 12:41 | CT ---
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 TECHNIQUE: Contiguous axial scanning of the abdomen and pelvis following administration of 100 ml Iso martha 300 IV contrast. Delayed images through the kidneys and coronal/sagittal reconstructions perform ed. CT DLP: 1582.10 mGycm Automated exposure control for dose reduction was used. FINDINGS: Heart normal size without pericardial effusion. Lung bases clear without pleural effusion. No focal liver lesion or biliary ductal dilatation. Portal venous system is patent. Gallbladder, adrenal glands, and pancreas within normal limits. The spleen is now borderline in size at 13.8 cm versus 12.4 cm, previously. A couple small benign-appearing renal cortical cysts are present on either side measuring up to 1.4 c m. A 1.8 cm pelvic cyst right kidney. There is mild fullness of the bilateral renal collecting systems but with symmetric excretion of cont rast from both kidneys. Somewhat medialization of the bilateral mid ureters and residual para-aortic fat stranding and mild wall thickening at the level of the aortic bifurcation. There is infrarenal ab dominal aortic aneurysm up to 3.6 cm, unchanged. The overall degree of stranding and soft tissue thic kening is unchanged from 05/26/2022. No dilated small bowel, free fluid, or free air. No mesenteric or retroperitoneal lymphadenopathy. Scattered moderate stool. Left-sided colonic diverticulosis. Mildly redundant sigmoid colon. No peric olonic inflammatory change. Prominent stool distending the rectum up to 6.5 cm AP. Bladder is urine distended. No abnormal fluid collection in the pelvis or pelvic lymphadenopathy seen Bones: Degenerative bony ankylosis left greater than right SI joints. Advanced spondylotic changes th roughout the lumbar spine. IMPRESSION: 1. INFRARENAL AAA STABLE AT 3.6 CM. THE MINIMAL RESIDUAL PERIAORTIC STRANDING AND SOFT TISSUE THICKEN ING ALSO REMAINS UNCHANGED. 2. SUSPECT THE DEVELOPMENT OF SOME DEGREE OF CHRONIC RETROPERITONEAL FIBROSIS GIVEN MEDIAL POSITIONIN G OF THE URETERS AND FULLNESS OF THE RENAL COLLECTING SYSTEMS. 3. SPLEEN NOW BORDERLINE IN SIZE AT 13.8 CM VERSUS 12.4 CM, PREVIOUSLY. THE SIGNIFICANCE OF THIS FIND ING IS UNCLEAR. 4. LEFT-SIDED COLONIC DIVERTICULOSIS WITHOUT ACUTE DIVERTICULITIS.
== END | disposition home or self-care (01) ==
LOC: RADCTMAIN 08:56
PROVIDERS: ATTEND Internal Medicine Hematology & Oncology
DX: I71.43 Infrarenal abdominal aortic aneurysm, without rupture (principal); K57.30 Diverticulosis of large intestine without perforation or abscess without bleeding; D60.9 Acquired pure red cell aplasia, unspecified
CPT/HCPCS: 82565; 84520; 74177; Q9967

== ENCOUNTER → 2023-06-04 | Outpatient (CLI) | payer MEDICARE ==
[2023-06-04 09:38] LABS: African American GFR (CKD) >90 (>60 ml/min/1.73 sqM); Blood Urea Nitrogen 18 mg/dL (9-20); Non-African American GFR(CKD) 89 (>60 ml/min/1.73 sqM)
--- NOTE | 2023-06-04 13:22 | CT ---
EXAMINATION TYPE: CT abdomen pelvis w con DATE OF EXAM: 06/04/2023 COMPARISON: 12/04/2022 HISTORY: 77-year-old male [id number] ACQUIRED PURE RED CELL APLASIA, UNSPECIFIED, Anemia, prostate CA TECHNIQUE: Contiguous axial scanning of the abdomen and pelvis following administration of 100 ml Iso martha 300 IV contrast. Delayed images through the kidneys and coronal/sagittal reconstructions perform ed. CT DLP: 1443.2 mGycm Automated exposure control for dose reduction was used. FINDINGS: Heart normal size without pericardial effusion. Some strandy atelectasis/scarring at the inferior rob gula. No pleural effusion. Liver enlarged at 19.2 cm, unchanged. Spleen borderline in size at 13.5 cm, unchanged. Portal venous system is patent. No biliary ductal dilatation. Gallbladder, adrenal glands, and pancreas within normal limits. A couple small renal cortical cysts on both sides measuring up to 1.2 cm. Right-sided parapelvic cyst measuring 1.4 cm. Symmetric uptake and excretion of contrast from the kidneys. Fusiform infrarenal AAA at 3.7 cm, unchanged. No dilated small bowel, free fluid, or free air. No mesenteric or retroperitoneal lymphadenopathy. Normal appendix. Oral contrast progressed into the mid transverse colon. There is moderate stool alessandra en. Left-sided colonic diverticulosis. Mildly redundant sigmoid colon. No pericolonic inflammatory ch asuncion. The rectum is also moderately distended with stool left to 7.8 cm AP. Bladder nondistended. Nonvisualization the prostate gland. No abnormal fluid collection in the pelvis or pelvic lymphadenopathy. Bones: Moderate to advanced multilevel spondylotic changes throughout the visualized spine. Degenerat jannette grade 1 retrolisthesis L1-L2 and L2-L3. Grade 1 anterolisthesis L4-L5. IMPRESSION: 1. MILD HEPATOMEGALY AT 19.2 CM. BORDERLINE SPLEEN SIZE AT 13.5 CM. BOTH UNCHANGED. 2. FUSIFORM INFRARENAL AAA AT 3.7 CM IS UNCHANGED. 3. LEFT-SIDED COLONIC DIVERTICULOSIS WITHOUT ACUTE DIVERTICULITIS. MODERATE STOOL BURDEN.
== END | disposition home or self-care (01) ==
LOC: RADCTMAIN 08:46
PROVIDERS: ATTEND Internal Medicine Hematology & Oncology
DX: C61 Malignant neoplasm of prostate (principal); D60.9 Acquired pure red cell aplasia, unspecified; I71.43 Infrarenal abdominal aortic aneurysm, without rupture; K57.30 Diverticulosis of large intestine without perforation or abscess without bleeding; D63.0 Anemia in neoplastic disease; I10 Essential (primary) hypertension; E78.5 Hyperlipidemia, unspecified; R16.0 Hepatomegaly, not elsewhere classified; Z71.3 Dietary counseling and surveillance
CPT/HCPCS: 82565; 84520; 74177; 36415; Q9967

== ENCOUNTER 2023-10-23 18:54 | Emergency (ER) | payer MEDICARE ==
[2023-10-23 19:20] VITALS: TEMP 98.5
--- NOTE | 2023-10-23 19:23 | ED ---
Abdominal Pain HPI - General Chief Complaint: Abdominal Pain Stated Complaint: Back pain Time Seen by Provider: 10/23/23 19:05 Source: patient Mode of arrival: ambulatory Limitations: no limitations - History of Present Illness Initial Comments: 77-year-old male with past medical history significant for history of evidence of retroperitoneal fibrosis versus adenopathy with symptomatic left flank pain status post stent placement which is now currently removed presenting to the ED with a chief complaint of left lower abdominal pain onset yesterday. Reports pain started yesterday while he was working, nonstrenuous activity. States pain is constant in nature and was initially at a 3 out of 10 in severity however today seem to worsen to a 6 out of 10 in severity. Reports his last regular bowel movement was this morning, nonbloody. Denies urinary symptoms including dysuria, frequency, hematuria. He does note a history of urinary frequency bob den reports that this has been unchanged over the past few days. No fever or chills. No nausea or vomiting. No chest pain or shortness of breath. States his symptoms today feel similar to what prompted presentation prior to discovery of the retroperitoneal fibrosis versus adenopathy. However at this time patient denies flank pain. - Related Data Home Medications Medication Instructions Recorded Confirmed Aspirin EC [Ecotrin Low Dose] 81 mg PO DAILY 06/21/19 10/23/23 Hydrocodone/Acetaminophen [Longs 1 tab PO TID 06/21/19 10/23/23 10-325] Losartan/Hydrochlorothiazide 1 tab PO DAILY 06/21/19 10/23/23 [Losartan-Hctz 100-12.5 mg Tab] Pravastatin Sodium [Pravachol] 40 mg PO Q48H 06/21/19 10/23/23 Pregabalin 200 mg PO BID 06/21/19 10/23/23 Cholecalciferol (Vitamin D3) 50 mcg PO DAILY 10/23/23 10/23/23 [Vitamin D3 (50 Mcg = 2000 Iu)] Cyanocobalamin (Vitamin B-12) 1,000 mcg PO DAILY 10/23/23 10/23/23 [Vitamin B-12] Folic Acid 1 mg PO DAILY 10/23/23 10/23/23 Meloxicam [Mobic] 7.5 mg PO DAILY 10/23/23 10/23/23 rOPINIRole HCL [Requip XL] 4 mg PO HS 10/23/23 10/23/23 Allergies Allergy/AdvReac Type Severity Reaction Status Date / Time No Known Allergies Allergy Verified 10/23/23 19:38 Review of Systems ROS Statement: Those systems with pertinent positive or pertinent negative responses have been documented in the HPI. ROS Other: All systems not noted in ROS Statement are negative. Past Medical History Past Medical History: Cancer, CVA/TIA, Hyperlipidemia, Hypertension Additional Past Medical History / Comment(s): neuropathy in legs, pain left flank recently, neuropathy & restless leg pain, hx. prostate cancer 2006, TIA 2 yrs. ago-no residual effects History of Any Multi-Drug Resistant Organisms: None Reported Past Surgical History: Hernia Repair, Orthopedic Surgery, Prostate Surgery Additional Past Surgical History / Comment(s): right knee surgery, robotic pros tatectomy, tarsal tunnel surgery on left foot. Past Anesthesia/Blood Transfusion Reactions: No Reported Reaction Additional Past Anesthesia/Blood Transfusion Reaction / Comment(s): no hx of blood transfusion Past Psychological History: No Psychological Hx Reported Smoking Status: Former smoker Past Alcohol Use History: None Reported Past Drug Use History: None Reported - Past Family History Father History Unknown: Yes Mother Family Medical History: Coronary Artery Disease (CAD) Additional Family Medical History / Comment(s): CABG General Exam Limitations: no limitations General appearance: alert, in no apparent distress Eye exam: Present: normal appearance Neck exam: Present: normal inspection Respiratory exam: Present: normal lung sounds bilaterally Cardiovascular Exam: Present: regular rate GI/Abdominal exam: Present: soft (No significant tenderness to palpation. No rebound guarding or rigidity. No CVA tenderness to percussion bilaterally.) Neurological exam: Present: alert, oriented X3 Skin exam: Present: warm, dry Course Vital Signs 10/23/23 18:55 Temperature 98.5 F Pulse Rate 67 Respiratory 20 Rate Blood Pressure 146/61 O2 Sat by Pulse 96 Oximetry Medical Decision Making - Medical Decision Making Was pt. sent in by a medical professional or institution (, PA, CHEMISTRY PROFESSOR, urgent care, hospital, or longterm...) When possible be specific @ -No Did you speak to anyone other than the patient for history (EMS, parent, family, police, friend...)? What history was obtained from this source @ -No Did you review nursing and triage notes (agree or disagree)? Why? @ -I reviewed and agree with nursing and triage notes Were old charts reviewed (outside hosp., previous admission, EMS record, old EKG, old radiological studies, urgent care reports/EKG's, longterm records)? Report findings @ -Reviewed prior charts. For further details please see HPI. Differential Diagnosis (chest pain, altered mental status, abdominal pain women, abdominal pain men, vaginal bleeding, weakness, fever, dyspnea, syncope, headache, dizziness, GI bleed, back pain, seizure, CVA, palpatations, mental health, musculoskeletal)? @ -Differential Abdominal Pain Men: Appendicitis, cholecystitis, diverticulosis, ischemic bowel, pancreatitis, hepatitis, UTI, gastroenteritis, AAA, incarcerated hernia, bowel obstruction, constipation, inflammatory bowel, hepatitis, peptic ulcer disease, splenic infarction, perforated viscus, testicular torsion, this is not meant to be an all-inclusive list EKG interpreted by me (3pts min.). @ -None X-rays interpreted by me (1pt min.). @ -None done CT interpreted by me (1pt min.). @ -CT abdomen pelvis interpreted me which revealed no evidence of acute finding. U/S interpreted by me (1pt. min.). @ -None done What testing was considered but not performed or refused? (CT, X-rays, U/S, labs)? Why? @ -None What meds were considered but not given or refused? Why? @ -None Did you discuss the management of the patient with other professionals (amos saldana i.e. , PA, CHEMISTRY PROFESSOR, lab, RT, psych nurse, social work administrator, varitypist, teacher, sba business development officer, dependency case manager)? Give summary @ -No Was smoking cessation discussed for >3mins.? @ -No Was critical care preformed (if so, how long)? @ -No Were there social determinants of health that impacted care today? How? (Homelessness, low income, unemployed, alcoholism, drug addiction, transportation, low edu. Level, literacy, decrease access to med. care, long-term, rehab)? @ -No Was there de-escalation of care discussed even if they declined (Discuss DNR or withdrawal of care, Hospice)? DNR status @ -No What co-morbidities impacted this encounter? (DM, HTN, Smoking, COPD, CAD, Cancer, CVA, ARF, Chemo, Hep., AIDS, mental health diagnosis, sleep apnea, morbid obesity)? @ -None Was patient admitted / discharged? Hospital course, mention meds given and route, prescriptions, significant lab abnormalities, going to OR and other pertinent info. @ -Discharge 77-year-old male presenting to the ED with complaints of left lower abdominal pain onset yesterday. Denies any associated symptoms with this and on examination abdomen is soft with no significant abdominal tenderness to palpation. Normal bowel sounds. No rebound guarding or rigidity. Laboratory studies reviewed. Labs including CBC, CMP, UA unremarkable. CT abdomen pelvis revealed no evidence of acute finding. Patient discharged home in stable condition. Patient was offered analgesics here in the ED however declined. Di scussed return precautions with patient who verbalized agreement. Undiagnosed new problem with uncertain prognosis? @ -No Drug Therapy requiring intensive monitoring for toxicity (Heparin, Nitro, Insulin, Cardizem)? @ -No Were any procedures done? @ -No Diagnosis/symptom? @ -Abdominal pain Acute, or Chronic, or Acute on Chronic? @ -Acute Uncomplicated (without systemic symptoms) or Complicated (systemic symptoms)? @ -Uncomplicated Side effects of treatment? @ -No Exacerbation, Progression, or Severe Exacerbation? @ -No Poses a threat to life or bodily function? How? (Chest pain, USA, CO, pneumonia, PE, COPD, DKA, ARF, appy, cholecystitis, CVA, Diverticulitis, Homicidal, Suicidal, threat to staff... and all critical care pts) @ -No - Lab Data Result diagrams: 10/23/23 19:43 10/23/23 19:43 Lab Results 10/23/23 10/23/23 10/23/23 Range/Units 19:43 19:43 19:43 WBC 6.1 (3.8-10.6) k/uL RBC 4.39 (4.30-5.90) m/uL Hgb 13.3 (13.0-17.5) gm/dL Hct 40.1 (39.0-53.0) % MCV 91.3 (80.0-100.0) fL MCH 30.4 (25.0-35.0) pg MCHC 33.3 (31.0-37.0) g/dL RDW 13.3 (11.5-15.5) % Plt Count 127 L (150-450) k/uL MPV 9.0 Neutrophils % 72 % Lymphocytes % 20 % Monocytes % 5 % Eosinophils % 2 % Basophils % 0 % Neutrophils # 4.4 (1.3-7.7) k/uL Lymphocytes # 1.2 (1.0-4.8) k/uL Monocytes # 0.3 (0-1.0) k/uL Eosinophils # 0.1 (0-0.7) k/uL Basophils # 0.0 (0-0.2) k/uL Sodium 138 (137-145) mmol/L Potassium 3.9 (3.5-5.1) mmol/L Chloride 103 (98-107) mmol/L Carbon Dioxide 29 (22-30) mmol/L Anion Gap 6 mmol/L BUN 25 H (9-20) mg/dL Creatinine 0.95 (0.66-1.25) mg/dL Est GFR (CKD-EPI)AfAm 89 (>60 ml/min/1.73 sqM) Est GFR (CKD-EPI)NonAf 77 (>60 ml/min/1.73 sqM) Glucose 86 (74-99) mg/dL Plasma Lactic Acid Be (0.7-2.0) mmol/L Calcium 9.4 (8.4-10.2) mg/dL Total Bilirubin 1.0 (0.2-1.3) mg/dL AST 28 (17-59) U/L ALT 19 (4-49) U/L Alkaline Phosphatase 83 (38-126) U/L Total Protein 6.8 (6.3-8.2) g/dL Albumin 4.6 (3.5-5.0) g/dL Amylase 57 (30-110) U/L Lipase 36 (23-300) U/L Urine Color Colorless Urine Appearance Clear (Clear) Urine pH 6.5 (5.0-8.0) Ur Specific [place] 1.007 (1.001-1.035) Urine Protein Negative (Negative) Urine Glucose (UA) Negative (Negative) Urine Ketones Negative (Negative) Urine Blood Negative (Negative) Urine Nitrite Negative (Negative) Urine Bilirubin Negative (Negative) Urine Urobilinogen <2.0 (<2.0) mg/dL Ur Leukocyte Esterase Negative (Negative) 10/23/23 Range/Units 19:43 WBC (3.8-10.6) k/uL RBC (4.30-5.90) m/uL Hgb (13.0-17.5) gm/dL Hct (39.0-53.0) % MCV (80.0-100.0) fL MCH (25.0-35.0) pg MCHC (31.0-37.0) g/dL RDW (11.5-15.5) % Plt Count (150-450) k/uL MPV Neutrophils % % Lymphocytes % % Monocytes % % Eosinophils % % Basophils % % Neutrophils # (1.3-7.7) k/uL Lymphocytes # (1.0-4.8) k/uL Monocytes # (0-1.0) k/uL Eosinophils # (0-0.7) k/uL Basophils # (0-0.2) k/uL Sodium (137-145) mmol/L Potassium (3.5-5.1) mmol/L Chloride (98-107) mmol/L Carbon Dioxide (22-30) mmol/L Anion Gap mmol/L BUN (9-20) mg/dL Creatinine (0.66-1.25) mg/dL Est GFR (CKD-EPI)AfAm (>60 ml/min/1.73 sqM) Est GFR (CKD-EPI)NonAf (>60 ml/min/1.73 sqM) Glucose (74-99) mg/dL Plasma Lactic Acid Be 0.7 (0.7-2.0) mmol/L Calcium (8.4-10.2) mg/dL Total Bilirubin (0.2-1.3) mg/dL AST (17-59) U/L ALT (4-49) U/L Alkaline Phosphatase (38-126) U/L Total Protein (6.3-8.2) g/dL Albumin (3.5-5.0) g/dL Amylase (30-110) U/L Lipase (23-300) U/L Urine Color Urine Appearance (Clear) Urine pH (5.0-8.0) Ur Specific [place] (1.001-1.035) Urine Protein (Negative) Urine Glucose (UA) (Negative) Urine Ketones (Negative) Urine Blood (Negative) Urine Nitrite (Negative) Urine Bilirubin (Negative) Urine Urobilinogen (<2.0) mg/dL Ur Leukocyte Esterase (Negative) Disposition Clinical Impression: Abdominal pain Disposition: HOME SELF-CARE Condition: Good Instructions (If sedation given, give patient instructions): Abdominal Pain (ED) Additional Instructions: Please return to the Emergency Department if symptoms worsen or any other concerns. Please follow-up with your primary care provider. Is patient prescribed a controlled substance at d/c from ED?: No Referrals: Denis Dawson DO [Primary Care Provider] - 1-2 days Time of Disposition: 22:55
[2023-10-23] MEDS: SODIUM CHLORIDE 0.9% 1,000 ML IV STA (19:51)
[2023-10-23 19:53] LABS: Basophils % (A) 0 %; Eosinophils # (A) 0.1 k/uL (0-0.7); Eosinophils % (A) 2 %; HCT 40.1 % (39.0-53.0); HGB 13.3 gm/dL (13.0-17.5); Lymphocytes # (A) 1.2 k/uL (1.0-4.8); Lymphocytes % (A) 20 %; MCH 30.4 pg (25.0-35.0); MCHC 33.3 g/dL (31.0-37.0); MCV 91.3 fL (80.0-100.0); Monocytes # (A) 0.3 k/uL (0-1.0); Monocytes % (A) 5 %; Neutrophils # (A) 4.4 k/uL (1.3-7.7); Neutrophils % (A) 72 %; Platelet Count 127 k/uL (150-450); RBC 4.39 m/uL (4.30-5.90); RDW 13.3 % (11.5-15.5); WBC 6.1 k/uL (3.8-10.6)
[2023-10-23 20:03] LABS: ALT 19 U/L (4-49); AST 28 U/L (17-59); African American GFR (CKD) 89 (>60 ml/min/1.73 sqM); Albumin 4.6 g/dL (3.5-5.0); Alkaline Phosphatase 83 U/L (38-126); Amylase 57 U/L (30-110); Anion Gap 6 mmol/L; Blood Urea Nitrogen 25 mg/dL (9-20); Calcium 9.4 mg/dL (8.4-10.2); Carbon Dioxide 29 mmol/L (22-30); Chloride 103 mmol/L (98-107); Glucose 86 mg/dL (74-99); Lipase 36 U/L (23-300); Non-African American GFR(CKD) 77 (>60 ml/min/1.73 sqM); Potassium 3.9 mmol/L (3.5-5.1); Sodium 138 mmol/L (137-145); Total Protein 6.8 g/dL (6.3-8.2)
[2023-10-23 20:04] LABS: Appearance,Urine Clear (Clear); Bilirubin,Urine Negative (Negative); Blood,Urine Negative (Negative); Color,Urine Colorless; Glucose,Urine (UA) Negative (Negative); Ketones,Urine Negative (Negative); Leukocyte Esterase,Urine Negative (Negative); Nitrite,Urine Negative (Negative); PH, Urine 6.5 (5.0-8.0); Protein,Urine Negative (Negative); Specific Gravity,Urine 1.007 (1.001-1.035); Urobilinogen,Urine <2.0 mg/dL (<2.0)
--- NOTE | 2023-10-23 22:29 | CT ---
EXAMINATION TYPE: CT abdomen pelvis w con DATE OF EXAM: 10/23/2023 COMPARISON: 06/04/2023 INDICATION: LLQ pain DLP: 1211.2 mGycm, Automated exposure control for dose reduction was used. CONTRAST: 100 mL of Isovue 300. Study performed without Oral Contrast TECHNIQUE: Axial images were obtained from above the diaphragm to the pubic rami in the axial plane a t 5 mm thick sections. Reconstructed images are reviewed on the computer in the coronal plane. FINDINGS: Limited CT sections are obtained the lung bases. The lung bases are clear. CT ABDOMEN: Liver: Normal Spleen: Normal Pancreas: Normal Adrenal glands: The adrenal glands are normal. Gallbladder: Normal Kidneys: No masses are evident. No hydronephrosis is present. Small cortical renal cysts on the pos terior right mid kidney. Delayed images were obtained through the kidneys, which remain unremarkable . Aorta: Vascular calcification is within the aorta. There is some fusiform prominence with an AP diam eter of 3.5 cm in the mid abdominal aorta. Inferior vena cava: Normal. CT PELVIS: Loops of bowel within the abdomen and pelvis are normal. Diverticulosis is present. No acute diverti culitis. No suspicious adjacent inflammatory changes. Study is without oral contrast limiting bowel evaluation. Appendix: Normal as visualized. Urinary bladder: Normal. Genitourinary structures: Prostate is poorly visualized Osseous structures: No suspicious lytic or sclerotic lesions. Degenerative changes are through the elias mbar spine. Degenerative disc changes are within the lumbar spine IMPRESSION: 1. Diverticulosis without acute diverticulitis. 2. No specific radiographic abnormality to account for left lower quadrant pain 3. Fusiform prominence mid abdominal aorta
[2023-10-23 23:23] VITALS: BP 131/67; PULSE 55; RESP 18
== END 2023-10-23 23:07 | disposition home or self-care (01) ==
LOC: EC 18:54
DX: R10.32 Left lower quadrant pain (principal); Z87.891 Personal history of nicotine dependence; Z86.73 Personal history of transient ischemic attack (TIA), and cerebral infarction without residual deficits
CPT/HCPCS: 36415; 74177; 80053; 81003; 82150; 83605; 83690; 85025; 96360; 99284

== ENCOUNTER → 2023-11-15 | Outpatient (CLI) | payer MEDICARE ==
[2023-11-15 15:40] LABS: Basophils # (A) 0.03 X 10*3/uL (0.00-0.10); Basophils % (A) 0.7 %; Eosinophils % (A) 2.2 %; HCT 38.8 % (39.6-50.0); Lymphocytes # (A) 0.85 X 10*3/uL (0.90-5.00); Lymphocytes % (A) 18.6 %; MCH 30.4 pg (27.0-32.0); MCHC 33.5 g/dL (32.0-37.0); MCV 90.7 FL (80.0-97.0); Mean Platelet Volume 11.3 FL (9.5-12.2); Monocytes # (A) 0.32 X 10*3/uL (0.20-1.00); NRBC Per 100 WBC 0 X 10*3/uL (0.00-0.01); Neutrophils # (A) 3.27 X 10*3/uL (1.80-7.70); Neutrophils % (A) 71.3 %; Platelet Count 128 X 10*3/uL (140-440); RBC 4.28 X 10*6/uL (4.40-5.60); WBC 4.58 X 10*3/uL (4.50-10.00)
[2023-11-15 16:30] LABS: Hepatitis B Surface Antigen Nonreactive (Nonreactive); Hepatitis C IgG Antibody Nonreactive (Nonreactive)
[2023-11-15 16:53] LABS: BUN/Creat Ratio 24.78 Ratio (12.00-20.00); Blood Urea Nitrogen 22.3 mg/dL (9.0-27.0); Carbon Dioxide 23.2 mmol/L (21.6-31.8); Chloride 105 mmol/L (96-109); Glucose 116 mg/dL (70-110); Potassium 4.3 mmol/L (3.5-5.5); Sodium 140 mmol/L (135-145)
[2023-11-15 16:54] LABS: ALT 15 U/L (10-49); AST 20 U/L (14-35); Albumin 4.7 g/dL (3.8-4.9); Albumin/Globulin Ratio 2.76 Ratio (1.60-3.17); Alkaline Phosphatase 101 U/L (41-126); Calcium 9.4 mg/dL (8.7-10.3); Globulin 1.7 g/dL (1.6-3.3); Total Bilirubin 0.4 mg/dL (0.3-1.2); Total Protein 6.4 g/dL (6.2-8.2)
== END | disposition home or self-care (01) ==
LOC: LABWHC1 09:01
PROVIDERS: ATTEND Internal Medicine Gastroenterology
DX: R16.2 Hepatomegaly with splenomegaly, not elsewhere classified (principal)
CPT/HCPCS: 36415; 80053; 81596; 85025; 86803; 87340

== ENCOUNTER → 2023-11-15 | Outpatient (CLI) | payer MEDICARE ==
--- NOTE | 2023-11-15 09:31 | US ---
EXAMINATION TYPE: US liver DATE OF EXAM: 11/15/2023 COMPARISON: NONE CLINICAL INDICATION: Male, 77 years old with history of R16.2 HEPATOMEGALY WITH SPLENOMEGALY, NOT ELS EWHER; ENLARGED LIVER, NO SYMPTOMS TECHNIQUE: Multiple sonographic images of the right upper quadrant are obtained. FINDINGS: EXAM MEASUREMENTS: Liver Length: 18.5 cm Gallbladder Wall: 0.2 cm CBD: 0.5 cm Right Kidney: 12.8 x 4.6 x 5.9 cm Pancreas: wnl Liver: upper limits of normal for size Gallbladder: wnl Evidence for sonographic Abel's sign: no CBD: wnl Right Kidney: inferior exophytic cyst = 1.4 x 1.6 x 1.4cm IMPRESSION: No discrete abnormality seen.
== END | disposition home or self-care (01) ==
LOC: RADUSWWP 08:55
PROVIDERS: ATTEND Internal Medicine Gastroenterology
DX: R16.2 Hepatomegaly with splenomegaly, not elsewhere classified (principal)
CPT/HCPCS: 76705

== ENCOUNTER → 2023-12-09 | Outpatient (CLI) | payer MEDICARE ==
[2023-12-09 12:48] LABS: African American GFR (CKD) >90 (>60 ml/min/1.73 sqM); Blood Urea Nitrogen 24 mg/dL (9-20); Non-African American GFR(CKD) >90 (>60 ml/min/1.73 sqM)
--- NOTE | 2023-12-09 14:12 | CT ---
EXAMINATION TYPE: CT abdomen pelvis w con DATE OF EXAM: 12/09/2023 COMPARISON: 10/23/2023 HISTORY: fibroid in lower pelivs f/u, red cell aplasia CT DLP: 1644 mGycm CONTRAST: CT scan of the abdomen and pelvis is performed with Oral Contrast and with IV Contrast, patient injec frank with 100 mL of Isovue 300. FINDINGS: LUNG BASES-: No visible nodule. No infiltrate. LIVER/GB: No calcified gallstones. No space occupying hepatic lesion. Biliary tree is of normal ca liber. PANCREAS: No inflammation. No distinct mass. SPLEEN: No splenic enlargement. No lesion seen. ADRENALS: No nodule. No thickening. KIDNEYS/BLADDER: No hydronephrosis. No nephrolithiasis. Renal cystic changes right kidney. Urinary bladder grossly unremarkable. BOWEL: Normal appendix. Normal bowel caliber. No inflammation. Sigmoid diverticulosis without diver ticulitis. GENITAL ORGANS: No gross abnormality. LYMPH NODES: No greater than 1cm abdominal or pelvic lymph nodes are appreciated. AORTA: 3.2 cm aneurysm infrarenal abdominal aorta. OSSEOUS STRUCTURES: No significant abnormality is seen. OTHER: No significant additional abnormality is seen. IMPRESSION: 1. No significant abnormalities seen. Incidental findings as noted.
== END | disposition home or self-care (01) ==
LOC: RADCTMAIN 11:57
PROVIDERS: ATTEND Internal Medicine Hematology & Oncology
DX: D60.9 Acquired pure red cell aplasia, unspecified (principal); I10 Essential (primary) hypertension; E78.5 Hyperlipidemia, unspecified; Z71.3 Dietary counseling and surveillance
CPT/HCPCS: 82565; 84520; 74177; 36415; Q9967

== ENCOUNTER → 2024-03-01 | Outpatient (CLI) | payer MEDICARE ==
--- NOTE | 2024-03-28 14:30 | US ---
Patient: Shabbir Obando S Ordering Physician: Unknown, Unknown ID: [id number] Phone, Pager: Phone: N /A Pager: N/A : [phone] Age/Gender: 78Y, M Primary Location: N/A Procedure: US venous doppler du plex LE BI Study Date: 03/01/2024 3:25:00 PM EXAMINATION TYPE: US venous doppler duplex LE BI DATE OF EXAM: 03/20/2024 2:03 PM COMPARISON: NONE CLINICAL INDICATION: Edema SIDE PERFORMED: Bilateral TECHNIQUE: The lower extremity deep venous system is examined utilizing real time linear array sonog orquidea with graded compression, doppler sonography and color-flow sonography. VESSELS IMAGED: Common Femoral Vein Deep Femoral Vein Greater Saphenous Vein * Femoral Vein Popliteal Vein Small Saphenous Vein * Proximal Calf Veins (* superficial vessels) Right Leg: Negative for DVT Left Leg: Negative for DVT Bilateral Angulo's cysts measuring up to 3.2 cm on the right and measuring at least 4.6 x 3.1 cm on th e left. IMPRESSION: Grayscale, color doppler, spectral doppler imaging performed of the deep veins of the lo wer extremities. There is normal flow, compressibility, vascular waveforms.
== END | disposition home or self-care (01) ==
LOC: RADUSWWP 12:00
PROVIDERS: ATTEND Family Medicine
DX: R60.0 Localized edema
CPT/HCPCS: 93970

== ENCOUNTER → 2024-04-05 | Outpatient (CLI) | payer MEDICARE ==
[2024-04-05 09:30] LABS: Partial Thromboplastin Time 25.4 sec (22.0-30.0); Prothrombin Time 10.6 sec (10.0-12.5)
[2024-04-05 15:08] LABS: HCT 36.2 % (39.6-50.0); HGB 12.1 g/dL (13.0-17.0); MCH 30.9 pg (27.0-32.0); MCHC 33.4 g/dL (32.0-37.0); MCV 92.3 FL (80.0-97.0); Mean Platelet Volume 10.9 FL (9.5-12.2); NRBC Per 100 WBC 0 X 10*3/uL (0.00-0.01); Platelet Count 173 X 10*3/uL (140-440); RBC 3.92 X 10*6/uL (4.40-5.60); RDW 13.4 % (11.5-14.5); WBC 5.11 X 10*3/uL (4.50-10.00)
[2024-04-05 15:42] LABS: ALT 17 U/L (10-49); AST 22 U/L (14-35); Albumin 4.4 g/dL (3.8-4.9); Alkaline Phosphatase 108 U/L (41-126); BUN/Creat Ratio 23.67 Ratio (12.00-20.00); Blood Urea Nitrogen 21.3 mg/dL (9.0-27.0); Calcium 9.4 mg/dL (8.7-10.3); Carbon Dioxide 24.6 mmol/L (21.6-31.8); Chloride 106 mmol/L (96-109); Glucose 112 mg/dL (70-110); Potassium 3.9 mmol/L (3.5-5.5); Sodium 142 mmol/L (135-145); Total Bilirubin 0.5 mg/dL (0.3-1.2); Total Protein 6.4 g/dL (6.2-8.2)
== END | disposition home or self-care (01) ==
LOC: LABWHC1 08:40
PROVIDERS: ATTEND Orthopaedic Surgery
DX: Z01.818 Encounter for other preprocedural examination (principal); Z22.322 Carrier or suspected carrier of Methicillin resistant Staphylococcus aureus; E11.9 Type 2 diabetes mellitus without complications; M17.11 Unilateral primary osteoarthritis, right knee; I49.1 Atrial premature depolarization
CPT/HCPCS: 36415; 80053; 83036; 85027; 85610; 85730; 87070; 93005

== ENCOUNTER 2024-04-26 13:30 | Day surgery (SDC) | payer MEDICARE ==
[~2024-04-26 13:30] MED LIST changes: -FUROSEMIDE 10 MG/ML 2 ML VIAL IV ONE; +HYDROmorphone 0.5 MG/0.5 ML SYRINGE IVP PRN; +ONDANSETRON 4 MG/2 ML VIAL IVP PRN; +TRANEXAMIC 1,000 MG/100ML-NACL 1,000 MG in SALINE 1 100ML.BAG IV PRN; +TRANEXAMIC 1,000 MG/100ML-NACL 1,000 MG in SALINE 1 100ML.BAG IVPB PRN
[2024-04-26] MEDS: ACETAMINOPHEN TAB 500 MG TAB PO PRN (14:16)
[2024-04-26] MEDS: oxyCODONE ER 10 MG TAB.ER.12H PO PRN (14:17)
[2024-04-26] MEDS: DOCUSATE 100 MG CAP PO PRN (14:17)
[2024-04-26] MEDS: LACTATED RINGERS 1,000 ML IV SCH (14:45)
[2024-04-26] MEDS: KETOROLAC 15 MG/ML 1 ML VIAL IVP PRN (14:45)
[2024-04-26] MEDS: FAMOTIDINE 20 MG/2 ML VIAL IVP PRN (14:45)
[2024-04-26] MEDS: ONDANSETRON 4 MG/2 ML VIAL IVP ONE (14:45)
[2024-04-26] MEDS: DEXAMETHASONE SOD PHOSPHATE 10 MG/ML 1 ML VIAL IV PRN (14:46)
[2024-04-26] MEDS: IV FLUID CONTINUATION 1,000 ML IV ONE (14:53)
[2024-04-26] MEDS: MIDAZOLAM 2 MG/2 ML VIAL IV ONE (15:09)
[2024-04-26] MEDS: fentaNYL (PF) 50 MCG/ML 2 ML AMP IVP STA (15:11)
[2024-04-26] MEDS ORDERED: HYDROmorphone (PF) 1 MG/ML ONE (15:47)
[2024-04-26] MEDS ORDERED: PROPOFOL 10 MG/ML 20 ML VIAL IV ONE (15:47)
[2024-04-26] MEDS ORDERED: SODIUM CHLORIDE 0.9% (PF) 10 ML VIAL ONE (15:47)
[2024-04-26] MEDS ORDERED: LIDOCAINE 1% INJ 10MG/ML (20 ML MDV) ONE (15:47)
[2024-04-26] MEDS ORDERED: WATER FOR INJECTION, STERILE 10 ML VIAL IV ONE (15:47)
[2024-04-26] MEDS ORDERED: TRANEXAMIC 1,000 MG/100ML-NACL PREMIX BAG ONE (15:47)
[2024-04-26] MEDS ORDERED: GLYCOPYRROLATE 0.2 MG/ML 2 ML VIAL ONE (15:47)
[2024-04-26] MEDS ORDERED: ePHEDrine 50 MG/ML 1 ML VIAL ONE (15:47)
[2024-04-26] MEDS ORDERED: SUCCINYLCHOLINE CHLORIDE 200 MG/10 ML VIAL IV ONE (15:47)
[2024-04-26] MEDS ORDERED: fentaNYL (PF) 50 MCG/ML 2 ML AMP ONE (15:47)
[2024-04-26] MEDS ORDERED: KETAMINE HCL IN 0.9 % NACL 50 MG/5 ML SYRINGE ONE (15:47)
[2024-04-26] MEDS ORDERED: ROPIVACAINE 5 MG/ML 30 ML VIAL ONE (15:47)
[2024-04-26] MEDS ORDERED: ROCURONIUM 10 MG/ML (5 ML VIAL) IV ONE (15:47)
[2024-04-26] MEDS ORDERED: NEOSTIGMINE 1 MG/ML 10 ML VIAL ONE (15:47)
--- NOTE | 2024-04-26 16:08 | P.ANPRN ---
Procedure Note - Anesthesia - Nerve Block Performed Right iPack Single Time Out Performed: Yes ([id number]) Date of Procedure: 04/26/24 Procedure Start Time: 15:03 Procedure Stop Time: 15:08 Location of Patient: PreOp Indication: Acute Post-Operative Pain, Requested by Surgeon Specifically requested for management of pain by DrCamille: Saleem Brar Sedation Type: Sedate with meaningful contact maintained Preparation: Sterile Prep Position: Supine Catheter: None Needle Types: Pajunk Needle Gauge: 21 Ultrasound used to visualize needle placement: Yes Ultrasound used to observe medication spread: Yes Injectate: 0.5% Ropivacaine (see comment for volume) (15cc+10cc nacl pf) Blood Aspirated: No Pain Paresthesia on Injection Noted: No Resistance on Injection: Normal Image Stored and Saved: Yes Events: Uneventful and Well Tolerated
--- NOTE | 2024-04-26 16:08 | P.ANPRN ---
Procedure Note - Anesthesia - Nerve Block Performed Right Adductor Canal Single Time Out Performed: Yes (1457) Date of Procedure: 04/26/24 Procedure Start Time: 14:58 Procedure Stop Time: 15:02 Location of Patient: PreOp Indication: Acute Post-Operative Pain, Requested by Surgeon Specifically requested for management of pain by DrCamille: Saleem Brar Sedation Type: Sedate with meaningful contact maintained Preparation: Sterile Prep Position: Supine Catheter: None Needle Types: Pajunk Needle Gauge: 21 Ultrasound used to visualize needle placement: Yes Ultrasound used to observe medication spread: Yes Injectate: 0.5% Ropivacaine (see comment for volume) (15cc+10cc nacl pf) Blood Aspirated: No Pain Paresthesia on Injection Noted: No Resistance on Injection: Normal Image Stored and Saved: Yes Events: Uneventful and Well Tolerated
[2024-04-26] MEDS: ROPIVACAINE/EPI/CLONIDINE/KET 50 ML SYRINGE MISCELLANE PRN (16:39)
[2024-04-26] MEDS: LACTATED RINGERS 1,000 ML IV ONE (17:35)
[2024-04-26] MEDS ORDERED: ONDANSETRON 4 MG/2 ML VIAL IVP PRN (17:59)
[2024-04-26] MEDS ORDERED: bisacodyL 10 MG SUPP RECTAL PRN (17:59)
[2024-04-26] MEDS ORDERED: MAGNESIUM HYDROXIDE 2,400 MG/30 ML CUP PO PRN (17:59)
[2024-04-26] MEDS ORDERED: hydrOXYzine pamoate 25 MG CAP PO PRN (17:59)
[2024-04-26] MEDS ORDERED: NALOXONE 0.4 MG/ML 1 ML VIAL IV PRN (17:59)
[2024-04-26] MEDS ORDERED: HYDROmorphone 0.5 MG/0.5 ML SYRINGE IVP PRN ×2 (17:59)
[2024-04-26] MEDS ORDERED: HYDROcodone/APAP 5-325MG 1 EACH TAB PO PRN (17:59)
--- NOTE | 2024-04-26 17:59 | P.OP ---
Date of Procedure: 04/26/24 Preoperative Diagnosis: Severe right knee osteoarthritis Postoperative Diagnosis: Same Procedure(s) Performed: 1. Right total knee arthroplasty 2. Computer assisted musculoskeletal navigation using CT/MRI images Implants: 1. [place]ro Triathlon CR Femur Size #6 2. Pietro Triathlon [place] Tibial Base Size #7 3. [place] Triathlon CS poly Size #10 4. Pietro Triathlon all poly patella, Size #35 Anesthesia: GUYA, regional Surgeon: Saleem Brar School Standards Coach #1: Amadeo Skelton Estimated Blood Loss (ml): 100 IV fluids (ml): 800 Pathology: none sent Condition: stable Disposition: PACU Indications for Procedure: I met with the patient preoperatively in the office setting and discussed treatment of their symptomatic knee arthritis. They failed a long course of nonsurgical treatment and elected to proceed with an elective total knee replacement. I discussed the potential risks and complications at length and gave them ample time to ask questions. Risks discussed included: risks from anesthesia, superficial site surgical infection, acute and/or chronic periprosthetic joint infection, delayed wound healing, drainage, wound necrosis, instability, stiffness, stiffness requiring manipulation and/or revision surgery, damage to local blood vessels or nerves, aseptic loosening of the implants, extensor mechanism issues including disruption, patellar maltracking, avascular necrosis etc., continued or worsened knee pain, generalized dissatisfaction with surgical outcome, need for revision surgery, an inability to regain preinjury level of function, DVT, PE, other medical complications, and possibly loss of life or limb. The patient voiced their understanding that while these are the most common complications other less common complications are possible. They provided both their verbal and written consent to go forward with surgery. Description of Procedure: The patient was identified in preoperative holding and the correct operative extremity was verified and marked with a marker. I reviewed the consent form with the patient at length. All of their questions were answered. The patient was given a block by anesthesia. They were then brought back to the operating room. They were transferred onto the operating room table where a general anesthetic, preoperative antibiotics, and tranexamic acid were administered by anesthesia. A tourniquet was applied to the proximal aspect of the operative extremity. The contralateral extremity was padded under the heel and secured to the operating room table with a nonsterile blue towel and tape. The ipsilateral arm was carefully draped across the patient's chest and secured with a pillow and foam. A post was applied over the lateral aspect of the ipsilateral thigh and a bolster was placed under the ipsilateral foot. I verified that the operative extremity was stable and the knee was flexed to 90. The operative extremity was then placed in a leg dumont, nonsterile drapes were applied, and the extremity was prepped and draped sterilely in the standard sterile fashion. Prior to starting surgery timeout was performed identifying the correct patient, operative extremity, and procedure. The leg was then elevated, exsanguinated with an Esmarch bandage, and the tourniquet was inflated. An anterior midline incision was made sharply with a scalpel. Once I had dissected deep to the superficial fascial layer medial and lateral flaps were elevated. A medial parapatellar arthrotomy was created. Upon opening the knee joint there were diffuse arthritic changes in all 3 compartments. The anterior horn of the medial meniscus were sharply released and a medial release was performed around the posterior medial corner of the knee to facilitate retractor placement. The fat pad was excised with electrocautery. The patella was found to be severely arthritic and a provisional cut was made with a sagittal saw to facilitate mobilization of the extensor mechanism during the procedure. Remnants of the ACL and PCL were then excised from the notch. 4 mm pins were then placed within the incision in the medial distal femur and proximal tibia. Arrays were applied to the pins and I verified they were completely tightened. The knee was then registered with the obopay robot and manipulations in implant position were made to balance the knee and opitmize implant position. Using the Ben robotic saw all cuts were made in accordance with our plan. After all bony fragments had been removed the cuts were verified with the planar probe. The tibia was then subluxed forward and sized. The knee was brought into flexion and a lamina amusement ride operator was placed to allow removal of the meniscal remnants both medially and laterally as well as posterior osteophytes. Local anesthetic was then infiltrated around the joint capsule. Trial implants were then placed within the knee. Range of motion and collateral ligament tension was then evaluated. Adjustments in implant size and position were then made accordingly. Once the knee was felt to be appropriately balanced the Ben pins were removed. The patella was then recut, sized, and punched. A trial patellar button was then placed. With the trial components in place, the patella tracked midline. The femur was then drilled and the trial component removed. The trial tibial component was then appropriately rotated, pinned, and prepared for the keel. All trial components were then removed from the knee. The knee was thoroughly irrigated with pulsatile lavage. Cement was prepared via vacuum mixing in a bowl on the back table. I then hand pressurized cement into the femur and tibia and placed the implants beginning with the tibial base tray and poly liner, femoral component, and finally the patellar button. All extruded cement was removed including from the pin sites. Once the cement had hardened the knee was evaluated one final time with the final polyethylene liner in place. The knee had full extension and flexion and felt stable to varus and valgus stress throughout the arc of motion. The tourniquet was released and with the tourniquet down the patella tracked midline. All bleeders were controlled with electrocautery. The knee was then soaked for 3 minutes with a dilute Betadine soak. The knee was thoroughly irrigated using 3 L of sterile saline and pulsatile lavage. The extensor mechanism was then reapproximated using pop off Vicryl sutures followed by a running barbed suture. The knee was then closed in layers with a 0 strata fix for the deep fascial layer, 2-0 strata fix for the superficial subcutaneous layer and Monocryl and Steri-Strips for the skin. A sterile dressing was applied. I verified that all instrument, sponge, and sharp counts were correct. The patient was then transferred off the operating room table, extubated, and brought to recovery having tolerated the procedure well. Amadeo Skelton PA-C was required as a skilled phlebotomy lab assistant for patient positioning, draping, exposure, retraction, closure of wound and application of dressing PLAN: The patient can weight-bear as tolerated on the operative extremity. DVT prophylaxis with aspirin 81 mg twice a day based on preoperative risk stratification. Internal medicine for perioperative medical management. 2 doses of post-operative antibiotics. Physical therapy for gait training. Follow-up in the office in 2 weeks for wound check and x-rays of the knee including an AP and lateral.
--- NOTE | 2024-04-26 18:47 | XR ---
EXAMINATION TYPE: XR knee limited RT DATE OF EXAM: 04/26/2024 6:36 PM CLINICAL INDICATION: Male, 78 years old with history of Evaluation for Postop abnormality and alignme nt; [facility] COMPARISON: None. TECHNIQUE: XR knee limited RT; examined in Frontal, lateral projections. FINDINGS: Status post total knee arthroplasty changes with hardware in appropriate alignment and in tact. No evidence of fracture. Subcutaneous lucencies and lucencies within the joint consistent with surgical changes. IMPRESSION: Status post total knee arthroplasty changes with hardware intact and appropriate alignment. No fractu res identified. [facility], , 04/26/2024 6:45 PM
[2024-04-26] MEDS: DEXAMETHASONE SOD PHOSPHATE 4 MG/ML 1 ML VIAL IV ONE (19:33)
[2024-04-26] MEDS: ASPIRIN 81 MG PO SCH (21:27)
[2024-04-26] MEDS: SENNOSIDES-DOCUSATE SODIUM 1 EACH TAB PO SCH (21:27)
--- NOTE | 2024-04-26 22:16 | P.CONS ---
History of Present Illness - Reason for Consult Consult date: 04/26/24 Medical management Requesting physician: Saleem Brar - History of Present Illness Patient is a 78-year-old male who had an elective right total knee arthroplasty and computer-assisted musculoskeletal navigation using CT and MRI images for severe right knee osteoarthritis. He seems to be doing well after the surgery. Knee x-ray post total knee arthroplasty does not show any fractures. He denies any pain at the surgical site. He has not had a bowel movement, passed flatus or urinated since the surgery. Denies fever, chills, chest pain, shortness of breath, palpitations, cough, abd ominal pain, nausea, vomiting, diarrhea. No lab values to be reviewed. Review of systems: Pertinent positives and negatives as discussed in HPI, a complete review of systems was performed and all other systems are negative. PMH: Hyperlipidemia, hypertension, osteoarthritis, peripheral neuropathy, restless leg syndrome PSH: Surgery for prostate cancer Social history: Tobacco: Denies use Alcohol: Occasional Recreational drugs: Denies use Travel: No recent travel history Sick contacts: None Physical examination: Vitals: T97.3 F, P67 bpm, RR 18, BP 122/60, O2 sat 95% on 2 L nasal cannula General: non toxic, no distress, appears at stated age, obese Derm: no unusual rashes/lesions, warm Head: atraumatic, normocephalic, symmetric ENT: Nose and ears atraumatic Mouth: no lip lesion, mucus membranes moist Cardiovascular: S1S2 reg, no murmur Lungs: On 2L via NC, CTA bilateral, no rhonchi, no rales, no accessory muscle use Abdominal: soft, nontender to palpation, no guarding Ext: Isaias Hose b/l, no gross muscle atrophy, no contractures, Neuro: CN II-XI grossly intact, no gross focal neuro deficits Psych: Alert, oriented, appropriate affect Assessment/Plan: Patient is a 78-year-old male who had an elective right total knee arthroplasty. We have been consulted for medical management #. Hyperlipidemia: Continue pravastatin 40 mg p.o. every 48 hours #. History of CAD Patient on aspirin 81 mg p.o. twice daily #. Hypertension Continue losartan hydrochlorothiazide 1 tablet p.o. daily #. Restless leg syndrome Continue ropinirole 4 mg p.o. at bedtime #. Peripheral neuropathy Continue pregabalin 20 mg p.o. twice daily #. Constipation Continue bisacodyl 10 mg rectal daily as needed, Senokot to each p.o. at bedtime, Milk of Magnesia 24 mg p.o. daily as needed #. Nausea and vomiting Continue Zofran 4 mg IVP every 8 hours as needed, hydroxyzine 25 mg p.o. every 4 hours as needed #.s/p right total knee arthroplasty Deane, Dilaudid for pain management Patient on cefazolin 2 g IVPB every 8 hours. Orthopedic surgery is following Physical therapy consulted F: 0.9 normal saline at 100 mL/h E: Replete as required N: Clear liquid advance to regular diet A: Defer to surgery DVT prophylaxis: Defer to surgery Past Medical History Past Medical History: Cancer, CVA/TIA, Hearing Disorder / Deafness, Hyperlipidemia, Hypertension, Osteoarthritis (OA) Additional Past Medical History / Comment(s): neuropathy & restless leg pain, hx. prostate cancer 2007, TIA . no residual effects. DDD. rt knee pain, rt ankle edema. EEK History of Any Multi-Drug Resistant Organisms: None Reported Past Surgical History: Hernia Repair, Orthopedic Surgery, Prostate Surgery Additional Past Surgical History / Comment(s): right knee surgery, robotic prostatectomy, tarsal tunnel surgery on left foot. Past Anesthesia/Blood Transfusion Reactions: No Reported Reaction Additional Past Anesthesia/Blood Transfusion Reaction / Comm: no hx of blood transfusion Smoking Status: Former smoker - Past Family History Father History Unknown: Yes Mother Family Medical History: Coronary Artery Disease (CAD) Additional Family Medical History / Comment(s): CABG Medications and Allergies Home Medications Medication Instructions Recorded Confirmed Type Aspirin EC [Ecotrin Low Dose] 81 mg PO DAILY 06/21/19 04/26/24 History Hydrocodone/Acetaminophen [[place]ane 1 tab PO TID 06/21/19 04/26/24 History 10-325] Losartan/Hydrochlorothiazide 1 tab PO DAILY 06/21/19 04/26/24 History [Losartan-Hctz 100-12.5 mg Tab] Pravastatin Sodium [Pravachol] 40 mg PO Q48H 06/21/19 04/26/24 History Pregabalin 200 mg PO BID 06/21/19 04/26/24 History Cholecalciferol (Vitamin D3) 50 mcg PO DAILY 10/23/23 04/26/24 History [Vitamin D3 (50 Mcg = 2000 Iu)] Cyanocobalamin (Vitamin B-12) 1,000 mcg PO DAILY 10/23/23 04/26/24 History [Vitamin B-12] Folic Acid 1 mg PO DAILY 10/23/23 04/26/24 History Meloxicam [Mobic] 7.5 mg PO DAILY 10/23/23 04/26/24 History rOPINIRole HCL [Requip XL] 4 mg PO HS 10/23/23 04/26/24 History Allergies Allergy/AdvReac Type Severity Reaction Status Date / Time No Known Allergies Allergy Verified 04/26/24 13:54 Physical Exam Vitals: Vital Signs Temp Pulse Resp BP Pulse Ox 04/26/24 19:15 67 18 122/60 95 04/26/24 19:00 71 18 132/67 95 04/26/24 18:45 77 18 136/64 95 04/26/24 18:30 81 16 133/67 97 04/26/24 18:17 97.3 F L 87 14 130/66 96 04/26/24 15:07 59 L 16 113/56 96 04/26/24 14:27 97.2 F L 67 18 144/67 99 Intake and Output 04/26/24 04/26/24 04/26/24 06:59 14:59 22:59 Intake Total 400 950 Output Total 100 Balance 400 850 Intake: IV 400 950 Output: Estimated Blood Loss 100 Other: Weight 98 kg Assessment and Plan Assessment: I have seen and evaluated the patient today. I Discussed the case with the resident and agree with the resident's findings I edited the assessment and plan as necessary as documented in the resident's note.
[2024-04-27] MEDS: PRAVASTATIN SODIUM 40 MG TAB PO SCH (00:15)
[2024-04-27] MEDS: SODIUM CHLORIDE 0.9% 1,000 ML IV SCH (00:18)
[2024-04-27] MEDS: HYDROcodone/APAP 10-325MG 1 EACH TAB PO PRN (05:04)
--- NOTE | 2024-04-27 07:54 | P.DS ---
Providers Attending physician: Saleem Brar Consults: 04/26/24 17:59 Consult Physician Routine Consulting Provider: Krystian Jacobo Consult Reason/Comments: post op medical management Do you want consulting provider notified?: Yes Primary care physician: [facility] Course: Shabbir is a 78-year-old male patient who presented on 04/26/2024 for scheduled right total knee arthroplasty for severe osteoarthritis who had failed conservative management. Patient tolerated the procedure well. Patient was transferred to the orthopedic floor after surgery. Patient was examined at bedside this morning. Patient was sitting up on the edge of bed. Patient was awake alert and able to answer questions. On inspection the right surgical dressing was dry and intact, with a small spot of distal strikethrough. Right femoral nerve function was grossly intact. Patient was able to plantarflex and dorsiflex the ankles and toes. Right foot was well-perfused. Calf was soft. Patient states they have been up and walked with walker. Patient states they have very little pain in the right knee. Patient will work with physical therapy today and pending PT will discharge home with his . Assessment: Postop day #1 status post right total knee arthroplasty on 04/26/2024 for severe osteoarthritis Plan - Discharge Summary Discharge Rx Participant: Yes New Discharge Prescriptions: New Aspirin 81 mg PO BID #60 tab HYDROcodone/APAP 5-325MG [[place] 5] 1 - 2 each PO Q6HR PRN #56 tab PRN Reason: Pain Docusate [Colace] 100 mg PO BID #60 capsule Omeprazole 20 mg PO DAILY #30 tab Ondansetron [Zofran] 4 mg PO Q6HR PRN #30 tab PRN Reason: Nausea No Action Pregabalin 200 mg PO BID Aspirin EC [Ecotrin Low Dose] 81 mg PO DAILY Pravastatin Sodium [Pravachol] 40 mg PO Q48H Losartan/Hydrochlorothiazide [Losartan-Hctz 100-12.5 mg Tab] 1 tab PO DAILY Hydrocodone/Acetaminophen [[place] 10-325] 1 tab PO TID rOPINIRole HCL [Requip XL] 4 mg PO HS Cholecalciferol (Vitamin D3) [Vitamin D3 (50 Mcg = 2000 Iu)] 50 mcg PO DAILY Folic Acid 1 mg PO DAILY Meloxicam [Mobic] 7.5 mg PO DAILY Cyanocobalamin (Vitamin B-12) [Vitamin B-12] 1,000 mcg PO DAILY Discharge Medication List Aspirin EC [Ecotrin Low Dose] 81 mg PO DAILY 06/21/19 [History] Hydrocodone/Acetaminophen [[place] 10-325] 1 tab PO TID 06/21/19 [History] Losartan/Hydrochlorothiazide [Losartan-Hctz 100-12.5 mg Tab] 1 tab PO DAILY 06/21/19 [History] Pravastatin Sodium [Pravachol] 40 mg PO Q48H 06/21/19 [History] Pregabalin 200 mg PO BID 06/21/19 [History] Cholecalciferol (Vitamin D3) [Vitamin D3 (50 Mcg = 2000 Iu)] 50 mcg PO DAILY 10/23/23 [History] Cyanocobalamin (Vitamin B-12) [Vitamin B-12] 1,000 mcg PO DAILY 10/23/23 [History] Folic Acid 1 mg PO DAILY 10/23/23 [History] Meloxicam [Mobic] 7.5 mg PO DAILY 10/23/23 [History] rOPINIRole HCL [Requip XL] 4 mg PO HS 10/23/23 [History] Aspirin 81 mg PO BID #60 tab 04/27/24 [Rx] Docusate [Colace] 100 mg PO BID #60 capsule 04/27/24 [Rx] HYDROcodone/APAP 5-325MG [[place] 5] 1 - 2 each PO Q6HR PRN #56 tab 04/27/24 [Rx] Omeprazole 20 mg PO DAILY #30 tab 04/27/24 [Rx] Ondansetron [Zofran] 4 mg PO Q6HR PRN #30 tab 04/27/24 [Rx] Follow up Appointment(s)/Referral(s): Saleem Brar MD [Medical Doctor] - 2 Weeks Activity/Diet/Wound Care/Special Instructions: 1. Weight-bear as tolerated on your operative extremity unless instructed otherwise. Use a walker or other assistive device to ambulate. 2. Leave surgical dressing in place. If your dressing becomes saturated with blood, there is drainage, or the dressing becomes loose please contact the office. 3. It is okay to shower with your surgical dressing, but do not submerge in water (no hot tubs, bath's, swimming etc.) 4. Take your blood clot prevention medication as prescribed (aspirin, Eliquis, Xarelto, and Plavix are commonly prescribed medications for blood clot prevention) 5. While taking [place] or Percocet for pain take a stool softener (Ex: Colace) and drink lots of water. 6. Keep all follow-up appointments as scheduled. You will usually be seen in 1-2 weeks following surgery. 7. Please contact the office with any questions or concerns [phone] Discharge Disposition: HOME WITH HOME HEALTH SERVICES
[2024-04-27 08:29] LABS: Basophils # (A) 0.01 X 10*3/uL (0.00-0.10); Basophils % (A) 0.1 %; Eosinophils # (A) 0 X 10*3/uL (0.04-0.35); Eosinophils % (A) 0 %; HCT 33.4 % (39.6-50.0); HGB 11.2 g/dL (13.0-17.0); Lymphocytes % (A) 4.9 %; MCHC 33.5 g/dL (32.0-37.0); MCV 89.5 FL (80.0-97.0); Mean Platelet Volume 10.8 FL (9.5-12.2); Monocytes # (A) 0.23 X 10*3/uL (0.20-1.00); Monocytes % (A) 2.8 %; NRBC Per 100 WBC 0 X 10*3/uL (0.00-0.01); Neutrophils # (A) 7.48 X 10*3/uL (1.80-7.70); Neutrophils % (A) 91.6 %; Platelet Count 158 X 10*3/uL (140-440); RBC 3.73 X 10*6/uL (4.40-5.60); RDW 13.4 % (11.5-14.5); WBC 8.17 X 10*3/uL (4.50-10.00)
[2024-04-27] MEDS: PREGABALIN 100 MG CAP PO SCH (08:33)
[2024-04-27] MEDS: CHOLECALCIFEROL 25 MCG (1000 IU) TABLET PO SCH (08:33)
[2024-04-27] MEDS: CYANOCOBALAMIN 500 MCG TAB PO SCH (08:33)
[2024-04-27] MEDS: LOSARTAN-HCTZ 50-12.5 MG 1 EACH TAB PO SCH (08:34)
[2024-04-27] MEDS: FOLIC ACID 1 MG TAB PO SCH (08:34)
[2024-04-27] MEDS: LOSARTAN 50 MG TAB PO SCH (08:34)
[2024-04-27 08:51] VITALS: BP 140/57; PULSE 64; RESP 18; TEMP 97.7
--- NOTE | 2024-04-27 12:34 | P.PN ---
Subjective Progress Note Date: 04/27/24 Hospital course: Patient is a very pleasant 78-year-old male with a past medical history of hypertension, hyperlipidemia, peripheral neuropathy with restless leg syndrome, and osteoarthritis. He is currently admitted under orthopedic surgery team status post right total knee arthroplasty secondary to severe right knee osteoarthritis. Surgical procedure was completed by Dr. Brar. We were consulted for medical management throughout hospitalization. Physical exam: Patient was seen and fully evaluated at bedside. He was sitting on edge of bed and reports doing "great". Patient just completed working with physical therapy and reports doing well. He states controlled postoperative pain stating only mild and manageable. He denies having any other complaints including headache, lightheadedness, dizziness, chest pain, palpitations, or shortness of breath. He reports urinating without any difficulties and denies having any postoperative nausea or vomiting. Vital signs reviewed and stable. General: Nontoxic, no distress and appears stated age. Derm: Skin warm and dry, normal coloration for ethnicity. Head: Atraumatic, normocephalic and symmetric. Eyes: EOM's intact, no lid lag, and anicteric sclera Mouth: no lip lesions, mucus membranes moist Cardiovascular: regular rate and rhythm with normal S1S2, no murmur, positive posterior tibial pulses bilaterally, and cap refill < 2 seconds. Lungs: Respirations even, regular, and unlabored on room air. Lungs CTA bilaterally, no rhonchi, no rales, no wheezing, and no accessory muscle usage. Abdominal: soft, nontender to palpation, no guarding, no appreciable organomegaly Ext: Movement and sensation intact.. No gross muscle atrophy, no edema, no contractures. Postoperative dressing/Liam wrap in place to right knee. Neuro: Speech clear, face symmetrical and CN II-XII grossly intact with no noted focal neuro deficits Psych: Alert and oriented to person, place, time, and situation. Appropriate and pleasant affect. Assessment and Plan of Care: Status post right total knee arthroplasty -Management per primary admitting orthopedic surgery team including DVT prophylaxis, pain management, wound/dressing management, weightbearing, and PT/OT. -Patient currently on DVT prophylaxis with aspirin 81 mg twice daily. Postoperative blood loss anemia -Preoperative hemoglobin 12.1 with postoperative hemoglobin of 11.2. This is a stable and expected finding. No need for transfusion or any other interventions at this time. No need for repeat testing. Hypertension -Controlled on current medication regimen and currently 140/57 with heart rate of 64. Patient to continue losartan/hydrochlorothiazide 100-12.5 mg tablets daily. Hyperlipidemia -Continue pravastatin 40 mg every 48 hours. Peripheral neuropathy with restless leg syndrome -Continue Lyrica 200 mg twice daily and Requip 4 mg nightly. Data Reviewed: -Postoperative labs reviewed showing mild postoperative blood loss anemia with preoperative hemoglobin of 12.1 and postoperative hemoglobin of 11.2. This is a stable and expected finding. -Vital signs reviewed and stable. Blood pressure 140/57, heart rate 64, respiratory rate 18, temp 97.7 F, and SpO2 of 96% on room air. Patient is medically optimized and cleared from medical perspective for discharge once cleared by primary admitting orthopedic surgery team. Thank you for allowing us to participate in the care of this pleasant patient. Do not hesitate to contact us with questions. Someone can be reached from the [facility] hospitalist group all hours of the day at [phone] or via [employer]. Patient was seen independently by Nurse Pracitioner. This document was prepared using [employer] dictation software. Please allow for errors in sample distributor, while rare they do occur. .Joseph Petersen NP rendered care for this patient independently, reviewed the findings and plan as documented in the note above. I did not physically speak with or examine the patient on this date. Objective - Vital Signs Vital signs: Vital Signs Temp 98.0 F 04/27/24 02:50 Pulse 76 04/27/24 02:50 Resp 16 04/27/24 02:50 BP 121/72 04/27/24 02:50 Pulse Ox 97 04/27/24 02:50 FiO2 Intake & Output 04/26/24 04/27/24 04/27/24 18:59 06:59 18:59 Intake Total 1350 Output Total 100 Balance 1250 Weight 98 kg 98 kg Intake: IV 1350 Output: Estimated Blood Loss 100 Other: # Voids 2 - Labs CBC & Chem 7: 04/27/24 04:00 Labs: Abnormal Lab Results - Last 24 Hours (Table) 04/27/24 Range/Units 04:00 RBC 3.73 L (4.40-5.60) X 10*6/uL Hgb 11.2 L (13.0-17.0) g/dL Hct 33.4 L (39.6-50.0) % Immature Gran # 0.05 H (0.00-0.04) X 10*3/uL Lymphocytes # 0.40 L (0.90-5.00) X 10*3/uL Eosinophils # 0 L (0.04-0.35) X 10*3/uL
[2024-04-27] MEDS ORDERED: rOPINIRole HCL 4 MG TABLET PO SCH (21:00)
== END 2024-04-27 11:43 | disposition home health service (06) ==
LOC: OR 13:30 → 4SSUR 18:11 → OR 04-27 11:43
PROVIDERS: ATTEND Orthopaedic Surgery
CPT/HCPCS: 0055T; 27447; 64447; 64999; 85025

== ENCOUNTER 2024-04-29 12:16 | Observation (INO) | payer MEDICARE ==
[2024-04-29] MEDS ORDERED: LORazepam 2 MG/ML INJ IV STA (12:57)
[2024-04-29] MEDS: SODIUM CHLORIDE 0.9% 1,000 ML IV STA (13:03)
--- NOTE | 2024-04-29 13:05 | ED ---
General Adult HPI - General Chief complaint: Weakness Stated complaint: Weakness Time Seen by Provider: 04/29/24 12:45 Source: patient, RN notes reviewed, old records reviewed Mode of arrival: wheelchair - History of Present Illness Initial comments: This is a 78-year-old male who presents to the emergency department after having had knee surgery on his right knee on Wednesday. Patient went home on and on Wednesday the pain was not being controlled by the [place] so they gave him oxycodone. Patient states since then he has been very weak nauseous and not eating or drinking. Patient states his visiting nurse saw him today and direction going to hospital because his weakness was more than she expected. Patient denies chest pain palpitation difficulty breathing shortness of breath. Patient denies any fever chills. Patient has any significant calf pain. - Related Data Home Medications Medication Instructions Recorded Confirmed Aspirin EC [Ecotrin Low Dose] 81 mg PO DAILY 06/21/19 04/26/24 Hydrocodone/Acetaminophen [[place] 1 tab PO TID 06/21/19 04/26/24 10-325] Losartan/Hydrochlorothiazide 1 tab PO DAILY 06/21/19 04/26/24 [Losartan-Hctz 100-12.5 mg Tab] Pravastatin Sodium [Pravachol] 40 mg PO Q48H 06/21/19 04/26/24 Pregabalin 200 mg PO BID 06/21/19 04/26/24 Cholecalciferol (Vitamin D3) 50 mcg PO DAILY 10/23/23 04/26/24 [Vitamin D3 (50 Mcg = 2000 Iu)] Cyanocobalamin (Vitamin B-12) 1,000 mcg PO DAILY 10/23/23 04/26/24 [Vitamin B-12] Folic Acid 1 mg PO DAILY 10/23/23 04/26/24 Meloxicam [Mobic] 7.5 mg PO DAILY 10/23/23 04/26/24 rOPINIRole HCL [Requip XL] 4 mg PO HS 10/23/23 04/26/24 Previous Rx's Medication Instructions Recorded Aspirin 81 mg PO BID #60 tab 04/27/24 Docusate [Colace] 100 mg PO BID #60 capsule 04/27/24 HYDROcodone/APAP 5-325MG [[place]ren 5] 1 - 2 each PO Q6HR PRN #56 tab 04/27/24 Omeprazole 20 mg PO DAILY #30 tab 04/27/24 Ondansetron [Zofran] 4 mg PO Q6HR PRN #30 tab 04/27/24 Allergies Allergy/AdvReac Type Severity Reaction Status Date / Time No Known Allergies Allergy Verified 04/29/24 12:38 Review of Systems ROS Statement: Those systems with pertinent positive or pertinent negative responses have been documented in the HPI. ROS Other: All systems not noted in ROS Statement are negative. Past Medical History Past Medical History: Cancer, CVA/TIA, Hyperlipidemia, Hypertension Additional Past Medical History / Comment(s): neuropathy & restless leg pain, hx. prostate cancer 2006, TIA . no residual effects. DDD. rt knee pain, rt ankle edema. [place] History of Any Multi-Drug Resistant Organisms: None Reported Past Surgical History: Hernia Repair, Orthopedic Surgery, Prostate Surgery Additional Past Surgical History / Comment(s): right knee surgery, robotic prostatectomy, tarsal tunnel surgery on left foot. right knee replacement 2023 Past Anesthesia/Blood Transfusion Reactions: No Reported Reaction Additional Past Anesthesia/Blood Transfusion Reaction / Comment(s): no hx of blood transfusion Past Psychological History: No Psychological Hx Reported Smoking Status: Never smoker Past Alcohol Use History: None Reported Past Drug Use History: None Reported - Past Family History Father History Unknown: Yes Mother Family Medical History: Coronary Artery Disease (CAD) Additional Family Medical History / Comment(s): CABG General Exam - General Exam Comments Initial Comments: GENERAL: Patient is well-developed and well-nourished. Patient is nontoxic and well- hydrated and is in mild distress. ENT: Neck is soft and supple. No significant lymphadenopathy is noted. Oropharynx is clear. Moist mucous membranes. Neck has full range of motion without eliciting any pain. EYES: The sclera were anicteric and conjunctiva were pink and moist. Extraocular movements were intact and pupils were equal round and reactive to light. E yelids were unremarkable. PULMONARY: Unlabored respirations. Good breath sounds bilaterally. No audible rales rhonchi or wheezing was noted. CARDIOVASCULAR: There is a regular rate and rhythm without any murmurs gallops or rubs. ABDOMEN: Soft and nontender with normal bowel sounds. SKIN: Skin is clear with no lesions or rashes and otherwise unremarkable. NEUROLOGIC: Patient is alert and oriented x3. Cranial nerves II through XII are grossly intact. Motor and sensory are also intact. Normal speech, volume and content. Symmetrical smile. MUSCULOSKELETAL: Incision does not look infected no erythema no drainage. Leg is swollen. LYMPHATICS: No significant lymphadenopathy is noted PSYCHIATRIC: Normal psychiatric evaluation. Course Vital Signs 04/29/24 04/29/24 04/29/24 12:32 12:55 13:05 Temperature 97.6 F Pulse Rate 72 83 63 Respiratory 18 18 Rate Blood Pressure 88/58 62/48 74/68 O2 Sat by Pulse 95 97 98 Oximetry 04/29/24 04/29/24 13:52 14:00 Temperature Pulse Rate 74 70 Respiratory 18 15 Rate Blood Pressure 88/50 93/48 O2 Sat by Pulse 98 97 Oximetry Medical Decision Making - Medical Decision Making EKG is interpreted by myself. EKG shows a sinus rhythm at 85 bpm TN interval is 142 QRS is 98 QT interval 364 QTc of 407. Was pt. sent in by a medical professional or institution (, ANA, LETTER STAMPING MACHINE OPERATOR, urgent care, hospital, or assisted...) When possible be specific @ -He was sent in by his visiting nurse abdominal Did you speak to anyone other than the patient for history (EMS, parent, family, police, friend...)? What history was obtained from this source @ -No Did you review nursing and triage notes (agree or disagree)? Why? @ -I reviewed and agree with nursing and triage notes Were old charts reviewed (outside hosp., previous admission, EMS record, old EKG, old radiological studies, urgent care reports/EKG's, assisted records)? Report findings @ -No old charts were reviewed Differential Diagnosis? @ -Differential Weakness: Hypoglycemia, shock, sepsis, hyponatremia, anemia, infection, NM, ETOH, adverse medicine reaction, overdose, stroke, this is not meant to be an all-inclusive list. EKG interpreted by me (3pts min.). @ -Okay X-rays interpreted by me (1pt min.). @ -X-ray shows no acute abnormality CT interpreted by me (1pt min.). @ -None done U/S interpreted by me (1pt. min.). @ -Ultrasound of the right leg shows no DVT What testing was considered but not performed or refused? (CT, X-rays, U/S, labs)? Why? @ -None What meds were considered but not given or refused? Why? @ -None Did you discuss the management of the patient with other professionals (professionals i.e. , PA, LETTER STAMPING MACHINE OPERATOR, lab, RT, psych nurse, addiction social worker, audiometric technician, teacher, agricultural loan officer, case fitter)? Give summary @ -I spoke with sound physicians they agreed to admit the patient Was smoking cessation discussed for >3mins.? @ -No Was critical care preformed (if so, how long)? @ -No Were there social determinants of health that impacted care today? How? (Homelessness, low income, unemployed, alcoholism, drug addiction, transportation, low edu. Level, literacy, decrease access to med. care, fdc, rehab)? @ -No Was there de-escalation of care discussed even if they declined (Discuss DNR or withdrawal of care, Hospice)? DNR status @ -No What co-morbidities impacted this encounter? (DM, HTN, Smoking, COPD, CAD, C ancer, CVA, ARF, Chemo, Hep., AIDS, mental health diagnosis, sleep apnea, morbid obesity)? @ -None Was patient admitted / discharged? Hospital course, mention meds given and route, prescriptions, significant lab abnormalities, going to OR and other pertinent info. @ -Patient will be admitted troponins will be ordered serially. Patient will be given IV fluids and the blood pressure will be monitored. Undiagnosed new problem with uncertain prognosis? @ -No Drug Therapy requiring intensive monitoring for toxicity (Heparin, Nitro, Insulin, Cardizem)? @ -No Were any procedures done? @ -No Diagnosis/symptom? @ -Hypotension Acute, or Chronic, or Acute on Chronic? @ -Acute Uncomplicated (without systemic symptoms) or Complicated (systemic symptoms)? @ -Complicated Side effects of treatment? @ -No Exacerbation, Progression, or Severe Exacerbation? @ -No Poses a threa send t to life or bodily function? How? (Chest pain, USA, NM, pneumonia, PE, COPD, DKA, ARF, appy, cholecystitis, CVA, Diverticulitis, Homicidal, Suicidal, threat to staff... and all critical care pts) @ -No Diagnosis/symptom? @ -Elevated troponin Acute, or Chronic, or Acute on Chronic? @ -Acute Uncomplicated (without systemic symptoms) or Complicated (systemic symptoms)? @ -Complicated Side effects of treatment? @ -None Exacerbation, Progression, or Severe Exacerbation] @ -No Poses a threat to life or bodily function? @ -Yes this can lead to an NM and endorgan dysfunction - Lab Data Result diagrams: 04/29/24 13:00 04/29/24 13:00 Lab Results 04/29/24 04/29/24 04/29/24 Range/Units 13:00 13:00 13:00 WBC 8.4 (3.8-10.6) k/uL RBC 3.85 L (4.30-5.90) m/uL Hgb 11.6 L (13.0-17.5) gm/dL Hct 35.1 L (39.0-53.0) % MCV 91.1 (80.0-100.0) fL MCH 30.2 (25.0-35.0) pg MCHC 33.1 (31.0-37.0) g/dL RDW 13.5 (11.5-15.5) % Plt Count 179 (150-450) k/uL MPV 9.1 Neutrophils % 89 % Lymphocytes % 6 % Monocytes % 4 % Eosinophils % 0 % Basophils % 0 % Neutrophils # 7.4 (1.3-7.7) k/uL Lymphocytes # 0.5 L (1.0-4.8) k/uL Monocytes # 0.3 (0-1.0) k/uL Eosinophils # 0.0 (0-0.7) k/uL Basophils # 0.0 (0-0.2) k/uL PT 11.3 (10.0-12.5) sec INR 1.0 (<1.2) APTT 25.8 (22.0-30.0) sec Sodium 135 L (137-145) mmol/L Potassium 3.6 (3.5-5.1) mmol/L Chloride 100 (98-107) mmol/L Carbon Dioxide 25 (22-30) mmol/L Anion Gap 10 mmol/L BUN 25 H (9-20) mg/dL Creatinine 1.16 (0.66-1.25) mg/dL Est GFR (CKD-EPI)AfAm 70 (>60 ml/min/1.73 sqM) Est GFR (CKD-EPI)NonAf 60 (>60 ml/min/1.73 sqM) Glucose 144 H (74-99) mg/dL Plasma Lactic Acid Be (0.7-2.0) mmol/L Calcium 8.6 (8.4-10.2) mg/dL Magnesium 2.0 (1.6-2.3) mg/dL Total Bilirubin 1.2 (0.2-1.3) mg/dL AST 22 (17-59) U/L ALT 13 (4-49) U/L Alkaline Phosphatase 70 (38-126) U/L Troponin I (0.000-0.034) ng/mL Total Protein 5.9 L (6.3-8.2) g/dL Albumin 3.7 (3.5-5.0) g/dL 04/29/24 04/29/24 Range/Units 13:00 13:00 WBC (3.8-10.6) k/uL RBC (4.30-5.90) m/uL Hgb (13.0-17.5) gm/dL Hct (39.0-53.0) % MCV (80.0-100.0) fL MCH (25.0-35.0) pg MCHC (31.0-37.0) g/dL RDW (11.5-15.5) % Plt Count (150-450) k/uL MPV Neutrophils % % Lymphocytes % % Monocytes % % Eosinophils % % Basophils % % Neutrophils # (1.3-7.7) k/uL Lymphocytes # (1.0-4.8) k/uL Monocytes # (0-1.0) k/uL Eosinophils # (0-0.7) k/uL Basophils # (0-0.2) k/uL PT (10.0-12.5) sec INR (<1.2) APTT (22.0-30.0) sec Sodium (137-145) mmol/L Potassium (3.5-5.1) mmol/L Chloride (98-107) mmol/L Carbon Dioxide (22-30) mmol/L Anion Gap mmol/L BUN (9-20) mg/dL Creatinine (0.66-1.25) mg/dL Est GFR (CKD-EPI)AfAm (>60 ml/min/1.73 sqM) Est GFR (CKD-EPI)NonAf (>60 ml/min/1.73 sqM) Glucose (74-99) mg/dL Plasma Lactic Acid Be 2.2 H* (0.7-2.0) mmol/L Calcium (8.4-10.2) mg/dL Magnesium (1.6-2.3) mg/dL Total Bilirubin (0.2-1.3) mg/dL AST (17-59) U/L ALT (4-49) U/L Alkaline Phosphatase (38-126) U/L Troponin I 0.041 H* (0.000-0.034) ng/mL Total Protein (6.3-8.2) g/dL Albumin (3.5-5.0) g/dL Disposition Clinical Impression: Elevated troponin, Hypotension, Weakness Disposition: ADMITTED IP TO THIS HOSP Referrals: Denis Dawson DO [Primary Care Provider] - 1-2 days Time of Disposition: 14:40
--- NOTE | 2024-04-29 13:22 | XR ---
EXAMINATION TYPE: XR chest 2V DATE OF EXAM: 04/29/2024 COMPARISON: 06/21/2019 INDICATION: Weakness TECHNIQUE: 2 view chest FINDINGS: The heart size is normal. The pulmonary vasculature is normal. The lungs are clear. IMPRESSION: 1. No acute pulmonary process. [facility], Workstation: [facility], 04/29/2024 1:19 PM
[2024-04-29 13:27] LABS: ALT 13 U/L (4-49); AST 22 U/L (17-59); African American GFR (CKD) 70 (>60 ml/min/1.73 sqM); Albumin 3.7 g/dL (3.5-5.0); Alkaline Phosphatase 70 U/L (38-126); Anion Gap 10 mmol/L; Blood Urea Nitrogen 25 mg/dL (9-20); Calcium 8.6 mg/dL (8.4-10.2); Carbon Dioxide 25 mmol/L (22-30); Chloride 100 mmol/L (98-107); Glucose 144 mg/dL (74-99); Non-African American GFR(CKD) 60 (>60 ml/min/1.73 sqM); Potassium 3.6 mmol/L (3.5-5.1); Sodium 135 mmol/L (137-145); Total Bilirubin 1.2 mg/dL (0.2-1.3); Total Protein 5.9 g/dL (6.3-8.2)
[2024-04-29 13:29] LABS: Basophils % (A) 0 %; Eosinophils % (A) 0 %; HCT 35.1 % (39.0-53.0); HGB 11.6 gm/dL (13.0-17.5); Lymphocytes # (A) 0.5 k/uL (1.0-4.8); Lymphocytes % (A) 6 %; MCH 30.2 pg (25.0-35.0); MCHC 33.1 g/dL (31.0-37.0); MCV 91.1 fL (80.0-100.0); Mean Platelet Volume 9.1; Monocytes # (A) 0.3 k/uL (0-1.0); Monocytes % (A) 4 %; Neutrophils # (A) 7.4 k/uL (1.3-7.7); Neutrophils % (A) 89 %; Platelet Count 179 k/uL (150-450); RBC 3.85 m/uL (4.30-5.90); RDW 13.5 % (11.5-15.5); WBC 8.4 k/uL (3.8-10.6)
[2024-04-29 13:30] LABS: Partial Thromboplastin Time 25.8 sec (22.0-30.0); Prothrombin Time 11.3 sec (10.0-12.5)
--- NOTE | 2024-04-29 13:55 | US ---
EXAMINATION TYPE: US venous doppler duplex LE RT DATE OF EXAM: 04/29/2024 1:49 PM COMPARISON: US 03/01/2024 CLINICAL INDICATION: Male, 78 years old with history of Swollen leg postsurgery; Swollen leg postsurg liat- right knee replaced 04/26/2024.No hx of DVT. Patient takes baby aspirin. SIDE PERFORMED: Right TECHNIQUE: The lower extremity deep venous system is examined utilizing real time linear array sonog orquidea with graded compression, color doppler sonography, and spectral doppler. VESSELS IMAGED: Common Femoral Vein Deep Femoral Vein Greater Saphenous Vein * Femoral Vein Popliteal Vein Small Saphenous Vein * Proximal Calf Veins (* superficial vessels) Right Leg: No evidence of DVT. Complex area seen posterior right knee= 5.7 x 3.1 x 1.3 cm. Conside r hematoma post surgery. Abscess is less likely based on current image. Popliteal cyst is within the differential. IMPRESSION: 1. No deep venous thrombosis right lower extremity. 2. Complex collection posterior to the right popliteal fossa. Popliteal cyst may be present. If there is been surgery in this region, hematoma could be within the differential. [facility], Workstation: [facility], 04/29/2024 1:53 PM
[2024-04-29] MEDS: ONDANSETRON 4 MG/2 ML VIAL IVP STA (14:34)
[2024-04-29] MEDS: HYDROmorphone 1 MG/ML 1 ML SYRINGE IVP STA (14:35)
[2024-04-29] MEDS ORDERED: NITROGLYCERIN SL TABS 0.4 MG TAB SUBLINGUAL PRN (14:42)
[2024-04-29] MEDS ORDERED: HYDROcodone/APAP 5-325MG 1 EACH TAB PO PRN (14:44)
[2024-04-29] MEDS: HYDROcodone/APAP 10-325MG 1 EACH TAB PO SCH (16:38)
[2024-04-29] MEDS: HEPARIN SODIUM,PORCINE 5,000 UNIT/ML 1 ML VIAL SQ SCH (16:39)
[2024-04-29] MEDS: SODIUM CHLORIDE 0.9% 1,000 ML IV SCH (16:42)
[2024-04-29] MEDS ORDERED: HYDROmorphone 1 MG/ML 1 ML SYRINGE IVP PRN (17:08)
--- NOTE | 2024-04-29 17:35 | P.HPIM ---
History of Present Illness H&P Date: 04/29/24 History of Presenting Illness: Patient is a very pleasant 78-year-old male with a past medical history of hypertension, hyperlipidemia, peripheral neuropathy with restless leg syndrome, and osteoarthritis. He recently underwent right total knee arthroplasty on 04/26/2024 and discharged home on 04/27/2024. Patient's reports his pain was not managed and they changed his prescription to hydrocodone. She reports since taking this medication he had decreased appetite, weakness, and overall not feeling well. Patient reports he was diaphoretic, dizzy/lightheaded, nauseous with total loss of appetite and felt extremely fatigued. Patient's states home care nurse came to their home and evaluated and stated he needed to come right back to the emergency department. Patient denies having any changes in regards, chills vision or hearing, headache, chest pain, palpitations, shortness of breath, cough or congestion, abdominal pain, vomiting, or experiencing any numbness/tingling/focal weakness in his extremities. Patient reports right lower extremity swelling, but again is 3 days postop from right total knee arthroplasty. Upon arrival to our facility, patient underwent evaluation in the emergency department. Vital signs upon arrival show blood pressure 62/48, heart rate 83, respiratory rate 18, temp 97.6 F, and SpO2 of 97% on room air. EKG was completed showing normal sinus rhythm at 85 bpm with flattened T waves otherwise no significant ST abnormalities noted upon personal review and interpretation. Chest x-ray completed negative for acute cardiopulmonary process. Right lower extremity venous Doppler negative for DVT, revealing a 5.7 x 3.1 x 1.3 cm area concerning for possible hematoma.. Labs completed and reviewed. CBC showing mild normocytic anemia with hemoglobin of 11.6. BMP showing mild prerenal azotemia with BUN of 25 otherwise normal findings. Blood glucose 144. Lactic acid 2.2. Magnesium 2.0. Liver profile unremarkable. Troponin was elevated at 0.041. Patient admitted under our services with consultation to cardiology and orthopedic surgery. Review of systems: Pertinent positives and negatives as discussed in HPI, a complete review of systems was performed and all other systems are negative. Physical exam: Vital signs reviewed. Blood pressures remain soft but improving with IV fluid bolus currently 93/48 and heart rate of 70 at time of assessment (improving from initial 62/48) General: Nontoxic, no distress and appears stated age. Derm: Skin warm and dry, normal coloration for ethnicity. Head: Atraumatic, normocephalic and symmetric. Eyes: EOM's intact, no lid lag, and anicteric sclera Mouth: no lip lesions, mucus membranes moist Cardiovascular: regular rate and rhythm with normal S1S2, no murmur, positive posterior tibial pulses bilaterally, and cap refill < 2 seconds. Lungs: Respirations even, regular, and unlabored on room air. Lungs CTA bilaterally, no rhonchi, no rales, no wheezing, and no accessory muscle usage. Abdominal: soft, nontender to palpation, no guarding, no appreciable organomegaly Ext: Movement and sensation intact.. No gross muscle atrophy, no edema, no contractures. Postoperative dressing/Liam wrap in place to right knee. Neuro: Speech clear, face symmetrical and CN II-XII grossly intact with no noted focal neuro deficits Psych: Alert and oriented to person, place, time, and situation. Appropriate and pleasant affect. Assessment and Plan of Care: Severe hypotension Elevated troponin, likely demand ischemia resulting from hypotension Lactic acidosis History of hypertension Hyperlipidemia -Elevated troponin believed to be secondary to demand ischemia resulting from severe hypotension. Hypotension believed to secondary to antihypertensive medication combined with new pain medication. (Pressures improving with IV fluid bolus) -Cardiology consulted, appreciate recommendations -Patient received a 1 L bolus of 0.9% normal saline in the emergency department and to be maintained on gentle IV fluid hydration with 0.9% normal saline at 75 cc/h. -Hold losartan/hydrochlorothiazide at this time pending improvement of blood pr essures. -Telemetry monitoring with close monitoring of vital signs. -Trend troponins -Cardiac diet, NPO at midnight -Aspirin 81 mg daily and pravastatin 40 mg every 48 hours. -Lipid profile with a.m. labs. -Echocardiogram Rule out postoperative hematoma, right lower extremity swelling Doppler revealing complex 5.7 x 3.1 x 1.3 cm area concerning for hematoma versus popliteal cyst Status post recent right total knee arthroplasty -Consult placed to orthopedic surgery team, appreciate recommendations. -Continue symptomatic care and pain management. Will hold off on [place] 10/325 mg tablets as patient's reports after switching to this medication is when patient's weakness began. Peripheral neuropathy -Continue Lyrica 200 mg twice daily and Requip 1.25 mg 3 times daily. Data and imaging reviewed: As stated above in HPI CODE STATUS: Full code DVT prophylaxis: Heparin Anticipated discharge date: Pending clinical course Anticipated discharge place: Return home with home care Patient was seen independently by Nurse Practitioner. This document was prepared using [employer] dictation software. Please allow for errors in poultry culler while rare they do occur. I reviewed the documentation as provided by the SHUBHAM above, who is the original author of this note. I agree with the documented assessment and plan, with the following changes: none Past Medical History Past Medical History: Cancer, CVA/TIA, Hyperlipidemia, Hypertension Additional Past Medical History / Comment(s): neuropathy & restless leg pain, hx. prostate cancer 2006, TIA . no residual effects. DDD. rt knee pain, rt ankle edema. [place] History of Any Multi-Drug Resistant Organisms: None Reported Past Surgical History: Hernia Repair, Orthopedic Surgery, Prostate Surgery Additional Past Surgical History / Comment(s): right knee surgery, robotic prostatectomy, tarsal tunnel surgery on left foot. right knee replacement 2023 Past Anesthesia/Blood Transfusion Reactions: No Reported Reaction Additional Past Anesthesia/Blood Transfusion Reaction / Comment(s): no hx of blood transfusion Past Psychological History: No Psychological Hx Reported Smoking Status: Never smoker Past Alcohol Use History: None Reported Past Drug Use History: None Reported - Past Family History Father History Unknown: Yes Mother Family Medical History: Coronary Artery Disease (CAD) Additional Family Medical History / Comment(s): CABG Medications and Allergies Home Medications Medication Instructions Recorded Confirmed Type Hydrocodone/Acetaminophen [[place] 1 tab PO TID 06/21/19 04/29/24 History 10-325] Pravastatin Sodium [Pravachol] 40 mg PO Q48H 06/21/19 04/29/24 History Pregabalin 200 mg PO BID 06/21/19 04/29/24 History Cholecalciferol (Vitamin D3) 50 mcg PO DAILY 10/23/23 04/29/24 History [Vitamin D3 (50 Mcg = 2000 Iu)] Cyanocobalamin (Vitamin B-12) 1,000 mcg PO DAILY 10/23/23 04/29/24 History [Vitamin B-12] Folic Acid 1 mg PO DAILY 10/23/23 04/29/24 History rOPINIRole HCL [Requip XL] 4 mg PO HS 10/23/23 04/29/24 History Aspirin 81 mg PO BID #60 tab 04/27/24 04/29/24 Rx Docusate [Colace] 100 mg PO BID #60 capsule 04/27/24 04/29/24 Rx Ondansetron [Zofran] 4 mg PO Q6HR PRN #30 tab 04/27/24 04/29/24 Rx Losartan/Hydrochlorothiazide 1 tab PO DAILY 04/29/24 04/29/24 History [Hyzaar 100-25 Tablet] Allergies Allergy/AdvReac Type Severity Reaction Status Date / Time No Known Allergies Allergy Verified 04/29/24 15:04 Physical Exam Osteopathic Statement: *. No significant issues noted on an osteopathic structural exam other than those noted in the History and Physical/Consult. Vitals: Vital Signs Temp Pulse Resp BP Pulse Ox 04/29/24 14:00 70 15 93/48 97 04/29/24 13:52 74 18 88/50 98 04/29/24 13:05 63 74/68 98 04/29/24 12:55 83 18 62/48 97 04/29/24 12:32 97.6 F 72 18 88/58 95 Intake and Output 04/28/24 04/29/24 04/29/24 22:59 06:59 14:59 Other: Weight 98.43 kg Results CBC & Chem 7: 04/29/24 13:00 04/29/24 13:00 Labs: Abnormal Lab Results - Last 24 Hours (Table) 04/29/24 04/29/24 04/29/24 Range/Units 13:00 13:00 13:00 RBC 3.85 L (4.30-5.90) m/uL Hgb 11.6 L (13.0-17.5) gm/dL Hct 35.1 L (39.0-53.0) % Lymphocytes # 0.5 L (1.0-4.8) k/uL Sodium 135 L (137-145) mmol/L BUN 25 H (9-20) mg/dL Glucose 144 H (74-99) mg/dL Plasma Lactic Acid Be 2.2 H* (0.7-2.0) mmol/L Troponin I (0.000-0.034) ng/mL Total Protein 5.9 L (6.3-8.2) g/dL 04/29/24 Range/Units 13:00 RBC (4.30-5.90) m/uL Hgb (13.0-17.5) gm/dL Hct (39.0-53.0) % Lymphocytes # (1.0-4.8) k/uL Sodium (137-145) mmol/L BUN (9-20) mg/dL Glucose (74-99) mg/dL Plasma Lactic Acid Be (0.7-2.0) mmol/L Troponin I 0.041 H* (0.000-0.034) ng/mL Total Protein (6.3-8.2) g/dL
[2024-04-29] MEDS: PRAVASTATIN SODIUM 40 MG TAB PO SCH (20:32)
[2024-04-29] MEDS: ASPIRIN 81 MG PO SCH (20:32)
[2024-04-29] MEDS: DOCUSATE 100 MG CAP PO SCH (20:32)
[2024-04-29] MEDS: PREGABALIN 100 MG CAP PO SCH (20:32)
[2024-04-30] MEDS: PANTOPRAZOLE 40 MG TABLET PO SCH (05:54)
[2024-04-30] MEDS: HYDROmorphone 0.5 MG/0.5 ML SYRINGE IVP PRN (05:56)
[2024-04-30 06:11] LABS: HCT 29.5 % (39.0-53.0); HGB 10.2 gm/dL (13.0-17.5); MCH 31.6 pg (25.0-35.0); MCHC 34.5 g/dL (31.0-37.0); MCV 91.6 fL (80.0-100.0); Mean Platelet Volume 8.6; Platelet Count 138 k/uL (150-450); RBC 3.22 m/uL (4.30-5.90); RDW 13.3 % (11.5-15.5); WBC 5.5 k/uL (3.8-10.6)
[2024-04-30 06:26] LABS: ALT 11 U/L (4-49); AST 19 U/L (17-59); African American GFR (CKD) >90 (>60 ml/min/1.73 sqM); Albumin 3.1 g/dL (3.5-5.0); Alkaline Phosphatase 65 U/L (38-126); Anion Gap 4 mmol/L; Blood Urea Nitrogen 26 mg/dL (9-20); Calcium 8.1 mg/dL (8.4-10.2); Carbon Dioxide 30 mmol/L (22-30); Chloride 102 mmol/L (98-107); Glucose 99 mg/dL (74-99); Magnesium 2.1 mg/dL (1.6-2.3); Non-African American GFR(CKD) 83 (>60 ml/min/1.73 sqM); Potassium 3.2 mmol/L (3.5-5.1); Sodium 136 mmol/L (137-145); Total Bilirubin 0.7 mg/dL (0.2-1.3); Total Protein 5.2 g/dL (6.3-8.2)
[2024-04-30] MEDS ORDERED: ASPIRIN 325 MG TAB PO SCH (09:00)
[2024-04-30] MEDS: FOLIC ACID 1 MG TAB PO SCH (09:10)
[2024-04-30] MEDS: CYANOCOBALAMIN 500 MCG TAB PO SCH (09:10)
[2024-04-30] MEDS: POTASSIUM CHLORIDE ER 20 MEQ TAB.ER PO STA (09:11)
[2024-04-30] MEDS: CHOLECALCIFEROL 25 MCG (1000 IU) TABLET PO SCH (09:11)
--- NOTE | 2024-04-30 09:16 | P.CNOR ---
History of Present Illness - [facility] Consult date: 04/30/24 History of present illness: The patient is a very pleasant 70-year-old male who underwent a right total knee replacement this past Wednesday. On postoperative day #1 was doing well and cleared therapy. He was discharged home. The patient developed progressively worsening pain. He was discharged home on Lavonia and states that at baseline before surgery he took Lavonia 10/325. He was changed from Lavonia to Percocet. Yesterday his physical therapist noted that he appeared weak and dehydrated so he was sent to the emergency room. In the ER he was found to have elevated troponins and was admitted to internal medicine. This morning the patient is feeling much better. He denies chest pain or shortness of breath. The pain in his knee is improved. Past Medical History Past Medical History: Cancer, CVA/TIA, Hyperlipidemia, Hypertension Additional Past Medical History / Comment(s): neuropathy & restless leg pain, hx. prostate cancer 2006, TIA . no residual effects. DDD. rt knee pain, rt ankle edema. PALA History of Any Multi-Drug Resistant Organisms: None Reported Past Surgical History: Hernia Repair, Orthopedic Surgery, Prostate Surgery Additional Past Surgical History / Comment(s): right knee surgery, robotic prostatectomy, tarsal tunnel surgery on left foot. right knee replacement 2023 Past Anesthesia/Blood Transfusion Reactions: No Reported Reaction Additional Past Anesthesia/Blood Transfusion Reaction / Comm: no hx of blood transfusion Past Psychological History: No Psychological Hx Reported Smoking Status: Never smoker Past Alcohol Use History: None Reported Additional Past Alcohol Use History / Comment(s): quit smoking in 1984, smoked for 20 yrs. Past Drug Use History: None Reported - Past Family History Father History Unknown: Yes Mother Family Medical History: Coronary Artery Disease (CAD) Additional Family Medical History / Comment(s): CABG Medications and Allergies Home Medications Medication Instructions Recorded Confirmed Type Hydrocodone/Acetaminophen [Lavonia 1 tab PO TID 06/21/19 04/29/24 History 10-325] Pravastatin Sodium [Pravachol] 40 mg PO Q48H 06/21/19 04/29/24 History Pregabalin 200 mg PO BID 06/21/19 04/29/24 History Cholecalciferol (Vitamin D3) 50 mcg PO DAILY 10/23/23 04/29/24 History [Vitamin D3 (50 Mcg = 2000 Iu)] Cyanocobalamin (Vitamin B-12) 1,000 mcg PO DAILY 10/23/23 04/29/24 History [Vitamin B-12] Folic Acid 1 mg PO DAILY 10/23/23 04/29/24 History rOPINIRole HCL [Requip XL] 4 mg PO HS 10/23/23 04/29/24 History Aspirin 81 mg PO BID #60 tab 04/27/24 04/29/24 Rx Docusate [Colace] 100 mg PO BID #60 capsule 04/27/24 04/29/24 Rx Ondansetron [Zofran] 4 mg PO Q6HR PRN #30 tab 04/27/24 04/29/24 Rx Losartan/Hydrochlorothiazide 1 tab PO DAILY 04/29/24 04/29/24 History [Hyzaar 100-25 Tablet] Allergies Allergy/AdvReac Type Severity Reaction Status Date / Time No Known Allergies Allergy Verified 04/29/24 15:04 Physical Examination The patient is resting comfortably in bed. He is alert and able to answer questions. He is in no apparent distress. A focused exam of the right lower extremity was conducted. On inspection there is an intact dressing over the anterior knee with only a small area of strike through the most distal margin. There is mild swelling throughout the leg. There is slight swelling but no familia fullness in the popliteal fossa. His thigh and calf are soft. His foot is warm and well perfused. He is able to actively plantar flex and dorsiflex his ankle and his toes. Results - Labs Labs: Abnormal Lab Results - Last 24 Hours (Table) 04/29/24 04/29/24 04/29/24 Range/Units 13:00 13:00 13:00 RBC 3.85 L (4.30-5.90) m/uL Hgb 11.6 L (13.0-17.5) gm/dL Hct 35.1 L (39.0-53.0) % Plt Count (150-450) k/uL Lymphocytes # 0.5 L (1.0-4.8) k/uL Sodium 135 L (137-145) mmol/L Potassium (3.5-5.1) mmol/L BUN 25 H (9-20) mg/dL Glucose 144 H (74-99) mg/dL Plasma Lactic Acid Be 2.2 H* (0.7-2.0) mmol/L Calcium (8.4-10.2) mg/dL Troponin I (0.000-0.034) ng/mL Total Protein 5.9 L (6.3-8.2) g/dL Albumin (3.5-5.0) g/dL 04/29/24 04/30/24 04/30/24 Range/Units 13:00 05:44 05:44 RBC 3.22 L (4.30-5.90) m/uL Hgb 10.2 L (13.0-17.5) gm/dL Hct 29.5 L (39.0-53.0) % Plt Count 138 L (150-450) k/uL Lymphocytes # (1.0-4.8) k/uL Sodium 136 L (137-145) mmol/L Potassium 3.2 L (3.5-5.1) mmol/L BUN 26 H (9-20) mg/dL Glucose (74-99) mg/dL Plasma Lactic Acid Be (0.7-2.0) mmol/L Calcium 8.1 L (8.4-10.2) mg/dL Troponin I 0.041 H* (0.000-0.034) ng/mL Total Protein 5.2 L (6.3-8.2) g/dL Albumin 3.1 L (3.5-5.0) g/dL H & H 04/29/24 04/30/24 Range/Units 13:00 05:44 Hgb 11.6 L 10.2 L (13.0-17.5) gm/dL Hct 35.1 L 29.5 L (39.0-53.0) % Coagulation 04/29/24 Range/Units 13:00 INR 1.0 (<1.2) Result Diagrams: 04/30/24 05:44 04/30/24 05:44 Assessment and Plan Assessment: Postoperative day #4 status post right total knee replacement Readmitted to internal medicine with elevated troponin Chronic pain, takes Lavonia 04/27/2025 at baseline Plan: The patient appears to be doing better this morning. His pain is improved. He has swelling as expected in the right lower extremity. The fluid collection seen on ultrasound is not concerning at this point and is either bleeding from surgery or pre-existing Angulo cyst which is not formally decompressed during the knee replacement and takes several months to resolve. I appreciate internal medicine's assistance. The patient reports that he takes Lavonia 04/27/2025 at baseline since postoperative pain is not unexpected given his tolerance to narcotic pain medication. Would like him to mobilize as able. If he is medically stable, safely ambulate and his pain is controlled he can discharge from an orthopedic standpoint. Time with Patient: Greater than 30
[2024-04-30 10:13] LABS: Chol/HDL Ratio 4.25 Ratio; LDL Cholesterol,Calculated 84.9 mg/dL (0.0-131.0)
--- NOTE | 2024-04-30 13:30 | P.CRDCN ---
History of Present Illness Consult date: 04/30/24 Consult reason: other (elevated trop) Chief complaint: dizzy, weak, low bp History of present illness: History of present illness: Patient is a pleasant 78-year-old male with significant past medical history of hypertension, hyperlipidemia, neuropathy, restless leg, who recently underwent total knee replacement 04/26/2024 who presents with low blood pressure and dizziness. 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 He does not smoke, or drink alcohol. Denies any significant family history of heart disease. Cardiology was consulted for elevated troponin. He reports that he was switched to oxycodone 2 days ago and has noticed he has had low blood pressure, dizziness, weakness, head felt heavy. He also has not eaten much for the past couple days and has not had a bowel movement. He denies any chest pain or pressure. No shortness of breath or diaphoresis. Troponin 0.041, 0.030, 0.029. EKG shows sinus rhythm with no significant ST or T wave changes. He states he did have an echo preoperatively however denies having a stress test. These results are unavailable. Prior echocardiogram from 2019 with EF 55-60%, mild aortic stenosis. Ultrasound of the right lower extremity today was negative for DVT shows possible hematoma. REVIEW OF SYSTEMS: No fever or chills. No cough or expectoration. No diaphor esis. Patient denies headache, blurred vision, double vision. Patient denies any stomach discomfort. No nausea, vomiting. No hematochezia. No hematemesis. Denies any black stools or blood in his stools. Denies dysuria or hematuria. No muscle weakness or numbness. No chest pain or pressure. Reports right knee pain and swelling. Reports dizziness. PHYSICAL EXAMINATION: This is a 78-year-old male in no apparent distress at the time of my examination. HEENT: Head is atraumatic, normocephalic. Pupils are equal, round. Sclerae anicteric. Conjunctivae are clear. Mucous membranes of the mouth are moist. Neck is supple. There is no jugular venous distention. + carotid bruit is heard. CHEST EXAMINATION: Lungs are clear to auscultation. No chest wall tenderness is noted on palpation or with deep breathing. HEART EXAMINATION: Heart regular rate and rhythm. S1, S2 heard. 2/6 murmur. No gallops or rub. ABDOMEN: Soft, nontender. Bowel sounds are heard. EXTREMITIES: Right knee swelling with right lower extremity edema +1. NEUROLOGIC EXAMINATION: Patient is awake, alert and oriented x3. IMPRESSION AND PLAN: Hypertension Hyperlipidemia Neuropathy Restless leg syndrome Recent total knee replacement 04/26/2024 Dizziness Mild aortic stenosis Carotid bruit Elevated troponin PLAN: We will check D-dimer and if positive will check CTA chest to rule out PE. Abnormal troponin likely stress from low blood pressure. Will check echocardiogram to evaluate heart function and structure. Consider outpatient stress testing. Further recommendations based on clinical course. I am dictating on behalf of Dr. Smith Miles's history/physical and assessment/plan. Past Medical History Past Medical History: Cancer, CVA/TIA, Hyperlipidemia, Hypertension Additional Past Medical History / Comment(s): neuropathy & restless leg pain, hx. prostate cancer 2006, TIA . no residual effects. DDD. rt knee pain, rt ankle edema. [place] History of Any Multi-Drug Resistant Organisms: None Reported Past Surgical History: Hernia Repair, Orthopedic Surgery, Prostate Surgery Additional Past Surgical History / Comment(s): right knee surgery, robotic prostatectomy, tarsal tunnel surgery on left foot. right knee replacement 2023 Past Anesthesia/Blood Transfusion Reactions: No Reported Reaction Additional Past Anesthesia/Blood Transfusion Reaction / Comment(s): no hx of blood transfusion Past Psychological History: No Psychological Hx Reported Smoking Status: Never smoker Past Alcohol Use History: None Reported Additional Past Alcohol Use History / Comment(s): quit smoking in 1984, smoked for 20 yrs. Past Drug Use History: None Reported - Past Family History Father History Unknown: Yes Mother Family Medical History: Coronary Artery Disease (CAD) Additional Family Medical History / Comment(s): CABG Medications and Allergies Home Medications Medication Instructions Recorded Confirmed Type Hydrocodone/Acetaminophen [[place] 1 tab PO TID 06/21/19 04/29/24 History 10-325] Pravastatin Sodium [Pravachol] 40 mg PO Q48H 06/21/19 04/29/24 History Pregabalin 200 mg PO BID 06/21/19 04/29/24 History Cholecalciferol (Vitamin D3) 50 mcg PO DAILY 10/23/23 04/29/24 History [Vitamin D3 (50 Mcg = 2000 Iu)] Cyanocobalamin (Vitamin B-12) 1,000 mcg PO DAILY 10/23/23 04/29/24 History [Vitamin B-12] Folic Acid 1 mg PO DAILY 10/23/23 04/29/24 History rOPINIRole HCL [Requip XL] 4 mg PO HS 10/23/23 04/29/24 History Aspirin 81 mg PO BID #60 tab 04/27/24 04/29/24 Rx Docusate [Colace] 100 mg PO BID #60 capsule 04/27/24 04/29/24 Rx Ondansetron [Zofran] 4 mg PO Q6HR PRN #30 tab 04/27/24 04/29/24 Rx Losartan/Hydrochlorothiazide 1 tab PO DAILY 04/29/24 04/29/24 History [Hyzaar 100-25 Tablet] Allergies Allergy/AdvReac Type Severity Reaction Status Date / Time No Known Allergies Allergy Verified 04/29/24 15:04 Physical Exam Vitals: Vital Signs Temp Pulse Pulse Resp BP BP Pulse Ox 04/30/24 08:00 98.1 F 64 16 137/74 98 04/30/24 03:28 98 F 82 20 139/65 96 04/29/24 23:21 98.1 F 84 18 133/63 94 L 04/29/24 20:15 97.9 F 94 18 107/55 97 04/29/24 20:00 74 18 83/53 04/29/24 18:00 74 18 92/51 98 04/29/24 16:00 74 16 108/51 98 04/29/24 15:00 74 16 100/52 97 04/29/24 14:00 70 15 93/48 97 04/29/24 13:52 74 18 88/50 98 04/29/24 13:05 63 74/68 98 04/29/24 12:55 83 18 62/48 97 04/29/24 12:32 97.6 F 72 18 88/58 95 Intake and Output 04/29/24 04/30/24 04/30/24 22:59 06:59 14:59 Intake Total 0 Output Total 240 1200 Balance -240 -1200 Intake: Oral 0 Output: Urine 240 1200 Other: Voiding Method Toilet # Voids 1 Weight 98.43 kg 98.5 kg Results 04/30/24 05:44 04/30/24 05:44 Cardiac Enzymes 04/29/24 04/29/24 04/29/24 Range/Units 13:00 13:00 16:29 AST 22 (17-59) U/L Troponin I 0.041 H* 0.030 (0.000-0.034) ng/mL 04/29/24 04/30/24 Range/Units 19:29 05:44 AST 19 (17-59) U/L Troponin I 0.029 (0.000-0.034) ng/mL Coagulation 04/29/24 Range/Units 13:00 PT 11.3 (10.0-12.5) sec APTT 25.8 (22.0-30.0) sec Lipids 04/30/24 Range/Units 05:44 Triglycerides 176.00 H (0.00-149.00) mg/dL Cholesterol 157.00 (0.00-200.00) mg/dL HDL Cholesterol 36.90 L (40.00-60.00) mg/dL Cholesterol/HDL Ratio 4.25 Ratio CBC 04/29/24 04/30/24 Range/Units 13:00 05:44 WBC 8.4 5.5 (3.8-10.6) k/uL RBC 3.85 L 3.22 L (4.30-5.90) m/uL Hgb 11.6 L 10.2 L (13.0-17.5) gm/dL Hct 35.1 L 29.5 L (39.0-53.0) % Plt Count 179 138 L (150-450) k/uL Comprehensive Metabolic Panel 04/29/24 04/30/24 Range/Units 13:00 05:44 Sodium 135 L 136 L (137-145) mmol/L Potassium 3.6 3.2 L (3.5-5.1) mmol/L Chloride 100 102 (98-107) mmol/L Carbon Dioxide 25 30 (22-30) mmol/L BUN 25 H 26 H (9-20) mg/dL Creatinine 1.16 0.87 (0.66-1.25) mg/dL Glucose 144 H 99 (74-99) mg/dL Calcium 8.6 8.1 L (8.4-10.2) mg/dL AST 22 19 (17-59) U/L ALT 13 11 (4-49) U/L Alkaline Phosphatase 70 65 (38-126) U/L Total Protein 5.9 L 5.2 L (6.3-8.2) g/dL Albumin 3.7 3.1 L (3.5-5.0) g/dL Current Medications Generic Name Dose Route Start Last Admin Trade Name Freq PRN Reason Stop Dose Admin Aspirin 81 mg 04/29/24 21:00 04/30/24 09:10 Aspirin 81 Mg PO 81 mg BID SPENCER Administration Cholecalciferol 50 mcg 04/30/24 09:00 04/30/24 09:11 Cholecalciferol 25 Mcg (1000 Iu) Tablet PO 50 mcg DAILY SPENCER Administration Cyanocobalamin 1,000 mcg 04/30/24 09:00 04/30/24 09:10 Cyanocobalamin 500 Mcg Tab PO 1,000 mcg DAILY SPENCER Administration Docusate Sodium 100 mg 04/29/24 21:00 04/30/24 09:10 Docusate 100 Mg Cap PO 100 mg BID SPENCER Administration Folic Acid 1 mg 04/30/24 09:00 04/30/24 09:10 Folic Acid 1 Mg Tab PO 1 mg DAILY SPENCER Administration Heparin Sodium (Porcine) 5,000 unit 04/29/24 16:00 04/30/24 09:11 Heparin Sodium,Porcine 5,000 Unit/Ml 1 Ml Vial SQ 5,000 unit Q8HR SPENCER Administration Hydromorphone HCl 1 mg 04/29/24 17:08 Hydromorphone 1 Mg/Ml 1 Ml Syringe IVP Q4HR PRN Pain Scale 7 to 10 Hydromorphone HCl 0.5 mg 04/29/24 17:08 04/30/24 05:56 Hydromorphone 0.5 Mg/0.5 Ml Syringe IVP 0.5 mg Q4HR PRN Administration Mild to Moderate Pain (1 - 6) Sodium Chloride 1,000 mls @ 75 mls/hr 04/29/24 14:45 04/30/24 09:18 Saline 0.9% IV 75 mls/hr .[id number] SPENCER Administration Nitroglycerin 0.4 mg 04/29/24 14:42 Nitroglycerin Sl Tabs 0.4 Mg Tab SUBLINGUAL Q5M PRN Chest Pain Pantoprazole Sodium 40 mg 04/30/24 07:30 04/30/24 05:54 Pantoprazole 40 Mg Tablet PO Not Given DAILY@0730 [facility] Pravastatin Sodium 40 mg 04/29/24 21:00 04/29/24 20:32 Pravastatin Sodium 40 Mg Tab PO 40 mg Q48H SPENCER Administration Pregabalin 200 mg 04/29/24 21:00 04/30/24 09:12 Pregabalin 100 Mg Cap PO 200 mg BID SPENCER Administration Ropinirole HCl 1.25 mg 04/29/24 16:00 04/30/24 09:12 Ropinirole Hcl 0.25 Mg Tab PO 1.25 mg TID SPENCER Administration Intake and Output 04/29/24 04/30/24 04/30/24 22:59 06:59 14:59 Intake Total 0 Output Total 240 1200 Balance -240 -1200 Intake: Oral 0 Output: Urine 240 1200 Other: Voiding Method Toilet # Voids 1 Weight 98.43 kg 98.5 kg 04/30/24 05:44 04/30/24 05:44
--- NOTE | 2024-04-30 14:04 | P.PN ---
Subjective Progress Note Date: 04/30/24 Hospital course: Patient is a very pleasant 78-year-old male with a past medical history of hypertension, hyperlipidemia, peripheral neuropathy with restless leg syndrome, and osteoarthritis. He recently underwent right total knee arthroplasty on 04/26/2024 and discharged home on 04/27/2024. Patient's reports his pain was not managed and they changed his prescription to hydrocodone. She reports since taking this medication he had decreased appetite, weakness, and overall not feeling well. Patient reports he was diaphoretic, dizzy/lightheaded, nauseous with total loss of appetite and felt extremely fatigued. Patient's states home care nurse came to their home and evaluated and stated he needed to come right back to the emergency department. Patient denies having any changes in regards, chills vision or hearing, headache, chest pain, palpitations, shortness of breath, cough or congestion, abdominal pain, vomiting, or experiencing any numbness/tingling/focal weakness in his extremities. Patient reports right lower extremity swelling, but again is 3 days postop from right total knee arthroplasty. Upon arrival to our facility, patient underwent evaluation in the emergency department. Vital signs upon arrival show blood pressure 62/48, heart rate 83, respiratory rate 18, temp 97.6 F, and SpO2 of 97% on room air. EKG was completed showing normal sinus rhythm at 85 bpm with flattened T waves otherwise no significant ST abnormalities noted upon personal review and interpretation. Chest x-ray completed negative for acute cardiopulmonary process. Right lower extremity venous Doppler negative for DVT, revealing a 5.7 x 3.1 x 1.3 cm area concerning for possible hematoma.. Labs completed and reviewed. CBC showing mild normocytic anemia with hemoglobin of 11.6. BMP showing mild prerenal azotemia with BUN of 25 otherwise normal findings. Blood glucose 144. Lactic acid 2.2. Magnesium 2.0. Liver profile unremarkable. T roponin was elevated at 0.041. Patient admitted under our services with consultation to cardiology and orthopedic surgery. Physical exam: Patient was seen and fully evaluated at bedside this morning. He reports feeling much better. He reports continued weakness with ambulation but otherwise denies any complaints. He remains free from any cardiac complaints including chest pain, palpitations, shortness of breath and continues to deny any further episodes of dizziness/lightheadedness/nausea since blood pressures improving. Vital signs reviewed and stable. General: Nontoxic, no distress and appears stated age. Derm: Skin warm and dry, normal coloration for ethnicity. Head: Atraumatic, normocephalic and symmetric. Eyes: EOM's intact, no lid lag, and anicteric sclera Mouth: no lip lesions, mucus membranes moist Cardiovascular: regular rate and rhythm with normal S1S2, no murmur, positive posterior tibial pulses bilaterally, and cap refill < 2 seconds. Lungs: Respirations even, regular, and unlabored on room air. Lungs CTA bilaterally, no rhonchi, no rales, no wheezing, and no accessory muscle usage. Abdominal: soft, nontender to palpation, no guarding, no appreciable organomegaly Ext: Movement and sensation intact.. No gross muscle atrophy, no edema, no contractures. Postoperative dressing/Liam wrap in place to right knee. Neuro: Speech clear, face symmetrical and CN II-XII grossly intact with no noted focal neuro deficits Psych: Alert and oriented to person, place, time, and situation. Appropriate and pleasant affect. Assessment and Plan of Care: Severe hypotension resolved with holding of antihypertensive medication and IV fluid bolus Elevated troponin, likely demand ischemia resulting from hypotension Lactic acidosis, resolved with IV fluid hydration History of hypertension Hyperlipidemia -Elevated troponin believed to be secondary to demand ischemia resulting from severe hypotension. Hypotension believed to secondary to antihypertensive medication combined with new pain medication. (Pressures improving with IV fluid bolus) -Cardiology consulted, appreciate recommendations -Continue gentle IV fluid hydration with 0.9% normal saline at 75 cc/h. -Hold losartan/hydrochlorothiazide at this time.. -Telemetry monitoring with close monitoring of vital signs. -Troponins downtrended at 0.041, 0.030, and 0.029. -Aspirin 81 mg daily and pravastatin 40 mg every 48 hours. -Lipid profile showing elevated triglycerides of 176 and low HDL of 36.90 otherwise normal findings. -Echocardiogram Rule out postoperative hematoma, right lower extremity swelling Doppler revealing complex 5.7 x 3.1 x 1.3 cm area concerning for hematoma versus popliteal cyst Status post recent right total knee arthroplasty -Orthopedic surgery following, discussed plan of care recommending discontinuing of Dilaudid and resuming Evart, recommending patient be discharged to rehab instead of home with home care as previous discharge, and stating fluid collection seen on ultrasound is not concerning and is likely the result of bleeding from surgery versus pre-existing Angulo's cyst. -Continue symptomatic care and pain management. Peripheral neuropathy -Continue Lyrica 200 mg twice daily and Requip 1.25 mg 3 times daily. Data and imaging reviewed: Labs completed and reviewed. CBC showing normocytic anemia with hemoglobin of 10.2 and mild thrombocytopenia with platelet count of 138. BMP showing hypokalemia with potassium of 3.2 and mild prerenal azotemia with BUN of 6. Magnesium 2.1. Liver profile unremarkable with the exception of hypoalbuminemia with albumin of 3.1. Vital signs reviewed. Blood pressure 137/74, heart rate 64, respiratory rate 16, temp 98.1 F, and SpO2 of 98% on room air. CODE STATUS: Full code DVT prophylaxis: Heparin Anticipated discharge date: Pending clinical course Anticipated discharge place: Return home with home care Patient was seen independently by Nurse Practitioner. This document was prepared using [employer] dictation software. Please allow for errors in physical therapist technician while rare they do occur. . I reviewed the documentation as provided by the SHUBHAM above, who is the original author of this note. I agree with the documented assessment and plan, with the following changes: none Objective - Vital Signs Vital signs: Vital Signs Temp 98 F 04/30/24 03:28 Pulse 82 04/30/24 03:28 Resp 20 04/30/24 03:28 BP 139/65 04/30/24 03:28 Pulse Ox 96 04/30/24 03:28 FiO2 Intake & Output 04/29/24 04/30/24 04/30/24 18:59 06:59 18:59 Intake Total 0 Output Total 1440 Balance -1440 Weight 98.43 kg 98.5 kg Intake: Oral 0 Output: Urine 1440 Other: # Voids 1 - Labs CBC & Chem 7: 04/30/24 05:44 04/30/24 05:44 Labs: Abnormal Lab Results - Last 24 Hours (Table) 04/29/24 04/29/24 04/29/24 Range/Units 13:00 13:00 13:00 RBC 3.85 L (4.30-5.90) m/uL Hgb 11.6 L (13.0-17.5) gm/dL Hct 35.1 L (39.0-53.0) % Plt Count (150-450) k/uL Lymphocytes # 0.5 L (1.0-4.8) k/uL Sodium 135 L (137-145) mmol/L Potassium (3.5-5.1) mmol/L BUN 25 H (9-20) mg/dL Glucose 144 H (74-99) mg/dL Plasma Lactic Acid Be 2.2 H* (0.7-2.0) mmol/L Calcium (8.4-10.2) mg/dL Troponin I (0.000-0.034) ng/mL Total Protein 5.9 L (6.3-8.2) g/dL Albumin (3.5-5.0) g/dL 04/29/24 04/30/24 04/30/24 Range/Units 13:00 05:44 05:44 RBC 3.22 L (4.30-5.90) m/uL Hgb 10.2 L (13.0-17.5) gm/dL Hct 29.5 L (39.0-53.0) % Plt Count 138 L (150-450) k/uL Lymphocytes # (1.0-4.8) k/uL Sodium 136 L (137-145) mmol/L Potassium 3.2 L (3.5-5.1) mmol/L BUN 26 H (9-20) mg/dL Glucose (74-99) mg/dL Plasma Lactic Acid Be (0.7-2.0) mmol/L Calcium 8.1 L (8.4-10.2) mg/dL Troponin I 0.041 H* (0.000-0.034) ng/mL Total Protein 5.2 L (6.3-8.2) g/dL Albumin 3.1 L (3.5-5.0) g/dL
[2024-04-30] MEDS: HYDROcodone/APAP 10-325MG 1 EACH TAB PO SCH (14:58)
--- NOTE | 2024-04-30 15:24 | CT ---
EXAMINATION TYPE: CT chest angio for PE CT DLP: 447.4 mGycm, Automated exposure control for dose reduction was used. DATE OF EXAM: 04/30/2024 3:07 PM COMPARISON: Chest radiograph from 04/29/2024. . CLINICAL INDICATION: Male, 78 years old with history of d-dimer elevated, recent surgery, r/o PE; d-d laureano elevated, recent surgery, r/o PE TECHNIQUE/CONTRAST: CTA scan of the thorax is performed with IV Contrast, patient injected with 80ml mL of Isovue 370, IL P images are created and reviewed these are created on a separate workstation.. FINDINGS: Pulmonary Artery: There is no evidence for a filling defect within the pulmonary vasculature to sugge st acute pulmonary embolism. The pulmonary artery is of normal size. Lungs/Pleura: No evidence of focal consolidation, pleural effusion or pneumothorax. Right upper lung posterior and left lower lung calcification granulomas. Airway: Large airways are patent. Heart: Heart is within normal limits for size. Atherosclerosis of the arterial vasculature. Vasculature: No evidence of aortic aneurysm. Mediastinum: No gross evidence of adenopathy. Musculoskeletal: No acute osseous abnormalities Soft Tissues/lymph nodes: Unremarkable. Lower neck: No significant findings. Upper Abdomen: No significant findings. IMPRESSION: 1. No evidence of pulmonary embolism. 2. Sequela of chronic granulomatous disease. Follow up recommendations for incidental pulmonary nodules, if there are any, are per [employer] or [employer]. https://radiopaedia.org/articles/tojgprtjee-ytijmkc-[email or web address]-[email or web address]?lang=us [facility], , 04/30/2024 3:21 PM
[2024-05-01] MEDS: MORPHINE SULFATE 2 MG/ML SYRINGE IVP STA (04:46)
[2024-05-01 08:27] VITALS: RESP 17
--- NOTE | 2024-05-01 08:34 | P.PN ---
Subjective Progress Note Date: 05/01/24 This morning the patient continues to be feeling better. He denies chest pain or shortness of breath. The pain in his knee continues to be improved. Objective - Vital Signs Vital signs: Vital Signs Temp 97.7 F 05/01/24 08:00 Pulse 91 05/01/24 08:00 Resp 17 05/01/24 08:00 BP 142/72 05/01/24 08:00 Pulse Ox 99 05/01/24 08:00 FiO2 Intake & Output 04/30/24 05/01/24 05/01/24 18:59 06:59 18:59 Output Total 0 Balance 0 Weight 99.3 kg Output: Stool 0 Other: Voiding Method Toilet Toilet # Voids 2 2 # Bowel Movements 1 0 - Exam The patient is resting comfortably in bed. He is alert and able to answer questions. He is in no apparent distress. A focused exam of the right lower extremity was conducted. On inspection there is an intact dressing over the anterior knee with only a small area of strike through in the distal margin. There is mild swelling throughout the leg. His thigh and calf are soft. His foot is warm and well perfused. He is able to actively plantar flex and dorsiflex his ankle and his toes. - Labs CBC & Chem 7: 04/30/24 05:44 04/30/24 05:44 Labs: Abnormal Lab Results - Last 24 Hours (Table) 04/30/24 04/30/24 Range/Units 05:44 12:27 D-Dimer 1.60 H (<0.60) mg/L FEU Triglycerides 176.00 H (0.00-149.00) mg/dL HDL Cholesterol 36.90 L (40.00-60.00) mg/dL Assessment and Plan Assessment: Postoperative day #5 status post right total knee replacement Readmitted to internal medicine with elevated troponin Chronic pain, takes [place] 04/27/2025 at baseline Plan: Leave dressing. The patient appears to be doing better this morning. His pain is improved. He has swelling as expected in the right lower extremity. I appreciate internal medicine's assistance. The patient reports that he takes [place] 04/27/2025 at baseline since postoperative pain is not unexpected given his tolerance to narcotic pain medication. Would like him to mobilize as able. If he is medically stable, safely ambulates and his pain is controlled he can discharge from an orthopedic standpoint.
[2024-05-01] MEDS: LOSARTAN-HCTZ 50-12.5 MG 1 EACH TAB PO SCH (10:12)
[2024-05-01 11:41] VITALS: PULSE 69; TEMP 97.6
--- NOTE | 2024-05-01 11:41 | P.DS ---
Providers Date of admission: 04/29/24 14:43 Expected date of discharge: 05/01/24 Attending physician: May Montes De Oca MD Consults: 04/29/24 14:42 Consult Physician Urgent Consulting Provider: [facility] Consult Reason/Comments: Elevated troponin Do you want consulting provider notified?: Yes 04/29/24 17:16 Consult Physician Routine Consulting Provider: Saleem Brar Consult Reason/Comments: 5.7 x 3.1 x 1.3 cm area concerning for possible hematoma Do you want consulting provider notified?: Yes Primary care physician: Denis Dawson Hospital Course: Discharge Diagnosis: Severe hypotension resolved Elevated troponin, likely demand ischemia resulting from hypotension. Lactic acidosis, resolved with IV fluid hydration History of hypertension Hyperlipidemia Rule out postoperative hematoma, right lower extremity swelling Doppler revealing complex 5.7 x 3.1 x 1.3 cm area concerning for hematoma versus popliteal cyst Status post recent right total knee arthroplasty Peripheral neuropathy Hospital course: Patient is a very pleasant 78-year-old male with a past medical history of hypertension, hyperlipidemia, peripheral neuropathy with restless leg syndrome, and osteoarthritis. He recently underwent right total knee arthroplasty on 04/26/2024 and discharged home on 04/27/2024. Patient's reports his pain was not managed and they changed his prescription to hydrocodone. She reports since taking this medication he had decreased appetite, weakness, and overall not feeling well. Patient reports he was diaphoretic, dizzy/lightheaded, nauseous with total loss of appetite and felt extremely fatigued. Patient's states home care nurse came to their home and evaluated and stated he needed to come right back to the emergency department. Patient denies having any changes in regards, chills vision or hearing, headache, chest pain, palpitations, shortness of breath, cough or congestion, abdominal pain, vomiting, or experiencing any numbness/tingling/focal weakness in his extremities. Patient reports right lower extremity swelling, but again is 3 days postop from right total knee arthroplasty. Upon arrival to our facility, patient underwent evaluation in the emergency department. Vital signs upon arrival show blood pressure 62/48, heart rate 83, respiratory rate 18, temp 97.6 F, and SpO2 of 97% on room air. EKG was completed showing normal sinus rhythm at 85 bpm with flattened T waves otherwise no significant ST abnormalities noted upon personal review and interpretation. Chest x-ray completed negative for acute cardiopulmonary process. Right lower extremity venous Doppler negative for DVT, revealing a 5.7 x 3.1 x 1.3 cm area concerning for possible hematoma.. Labs completed and reviewed. CBC showing mild normocytic anemia with hemoglobin of 11.6. BMP showing mild prerenal azotemia with BUN of 25 otherwise normal findings. Blood glucose 144. Lactic acid 2.2. Magnesium 2.0. Liver profile unremarkable. Troponin was elevated at 0.041. Patient admitted under our services with consultation to cardiology and orthopedic surgery. Patient was treated with IV fluid hydration. Troponins downtrending. Patient was evaluated by cardiology and cleared from cardiac perspective for discharge recommending outpatient follow-up in their office in 1 to 2 weeks. Patient was evaluated by orthopedic surgery recommending discharge to SNF, patient declined requesting discharge home with home care. Medically, patient cleared for discharge at this time. Patient strongly advised against taking [place] and OxyContin at the same time. Patient and patient's verbalized patient will no longer take OxyContin and will only use home [place] for severe postoperative pain. 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 Patient discharged home with home care. Physical exam: Vital signs reviewed and stable. General: Nontoxic, no distress and appears stated age. Derm: Skin warm and dry, normal coloration for ethnicity. Head: Atraumatic, normocephalic and symmetric. Eyes: EOM's intact, no lid lag, and anicteric sclera Mouth: no lip lesions, mucus membranes moist Cardiovascular: regular rate and rhythm with normal S1S2, no murmur, positive posterior tibial pulses bilaterally, and cap refill < 2 seconds. Lungs: Respirations even, regular, and unlabored on room air. Lungs CTA bilaterally, no rhonchi, no rales, no wheezing, and no accessory muscle usage. Abdominal: soft, nontender to palpation, no guarding, no appreciable organomegaly Ext: Movement and sensation intact.. No gross muscle atrophy, no edema, no contractures. Postoperative dressing/Liam wrap in place to right knee. Neuro: Speech clear, face symmetrical and CN II-XII grossly intact with no noted focal neuro deficits Psych: Alert and oriented to person, place, time, and situation. Appropriate and pleasant affect. A total of 36 minutes of time were spent preparing this complex discharge summary. Pt was discharged on 05/01/2024 at 11:40 AM Patient was seen independently by Nurse Practitioner. This document was prepared using [employer] dictation software. Please allow for errors in oyster culturist while rare they do occur. I reviewed the documentation as provided by the SHUBHAM above, who is the original author of this note. I agree with the documented assessment and plan, with the following changes: none Patient Condition at Discharge: Stable Plan - Discharge Summary Discharge Rx Participant: No New Discharge Prescriptions: Continue Pregabalin 200 mg PO BID Pravastatin Sodium [Pravachol] 40 mg PO Q48H Hydrocodone/Acetaminophen [[place] 10-325] 1 tab PO TID rOPINIRole HCL [Requip XL] 4 mg PO HS Cholecalciferol (Vitamin D3) [Vitamin D3 (50 Mcg = 2000 Iu)] 50 mcg PO DAILY Folic Acid 1 mg PO DAILY Aspirin 81 mg PO BID #60 tab Cyanocobalamin (Vitamin B-12) [Vitamin B-12] 1,000 mcg PO DAILY Docusate [Colace] 100 mg PO BID #60 capsule Ondansetron [Zofran] 4 mg PO Q6HR PRN #30 tab PRN Reason: Nausea Losartan/Hydrochlorothiazide [Hyzaar 100-25 Tablet] 1 tab PO DAILY Discharge Medication List Hydrocodone/Acetaminophen [[place] 10-325] 1 tab PO TID 06/21/19 [History] Pravastatin Sodium [Pravachol] 40 mg PO Q48H 06/21/19 [History] Pregabalin 200 mg PO BID 06/21/19 [History] Cholecalciferol (Vitamin D3) [Vitamin D3 (50 Mcg = 2000 Iu)] 50 mcg PO DAILY 10/23/23 [History] Cyanocobalamin (Vitamin B-12) [Vitamin B-12] 1,000 mcg PO DAILY 10/23/23 [History] Folic Acid 1 mg PO DAILY 10/23/23 [History] rOPINIRole HCL [Requip XL] 4 mg PO HS 10/23/23 [History] Aspirin 81 mg PO BID #60 tab 04/27/24 [Rx] Docusate [Colace] 100 mg PO BID #60 capsule 04/27/24 [Rx] Ondansetron [Zofran] 4 mg PO Q6HR PRN #30 tab 04/27/24 [Rx] Losartan/Hydrochlorothiazide [Hyzaar 100-25 Tablet] 1 tab PO DAILY 04/29/24 [History] Follow up Appointment(s)/Referral(s): Smith Miles DO [STAFF PHYSICIAN] - 05/08/24 8:30 am (cardiology. ) Denis Dawson DO [Primary Care Provider] - 05/02/24 3:20 pm ([place] [facility] ) Saleem Brar MD [Medical Doctor] - 05/11/24 1:40 pm Patient Instructions/Handouts: Hypotension (DC) Activity/Diet/Wound Care/Special Instructions: Activity: As tolerated. Take breaks as needed. Diet: Heart healthy and carb consistent diet. Avoid salts, or foods with hidden salts such as canned or boxed foods and frozen dinners. Extra salt makes your heart work harder and traps the fluid in your body for longer. Special Instructions: Take all of your medications as directed and remember to keep all of your doctor's appointments and follow-up as needed. Thank you for allowing us to participate in your care, it was truly a pleasure having you for our patient!!! Discharge Disposition: HOME WITH HOME HEALTH SERVICES
[2024-05-01] MEDS: LACTULOSE 20 GM/30 ML CUP PO ONE (12:10)
[2024-05-01 12:16] VITALS: BP 150/87
--- NOTE | 2024-05-01 12:23 | CA ---
Transthoracic Echo Report Name: Shabbir Obando Age: 78 Gender: M : 1945 Exam Date: 05/01/2024 08:10 Exam Location: [facility] Ht (in): 69 Wt (lb): 217 Ordering Physician: Joseph Petersen Attending/Referring Phys: Cook Manager Katerina Pelayo RDCS Procedure CPT: Indications: Evaluate structure and function Cardiac Hx: Technical Quality: Fair Contrast 1: Total Dose (mL): Contrast 2: Total Dose (mL): MEASUREMENTS (Male / Female) Normal Values 2D ECHO LV Diastolic Diameter PLAX 4.8 cm 4.2 - 5.9 / 3.9 - 5.3 cm LV Systolic Diameter PLAX 2.8 cm IVS Diastolic Thickness 1.1 cm 0.6 - 1.0 / 0.6 - 0.9 cm LVPW Diastolic Thickness 1.3 cm 0.6 - 1.0 / 0.6 - 0.9 cm LV Relative Wall Thickness 0.5 RV Internal Dim ED PLAX 2.1 cm LVOT Diameter 2.2 cm LA Systolic Diameter LX 5.0 cm 3.0 - 4.0 / 2.7 - 3.8 cm LV Diastolic Volume MOD BP 69.5 cm??? 67 - 155 / 56 - 104 cm??? LV Systolic Volume MOD BP 25.6 cm??? 22 - 58 / 19 - 49 cm??? LV Ejection Fraction MOD BP 63.1 % >= 55 % LV Cardiac Index MOD BP 1937.0 cm???/min???m??? LV Diastolic Volume MOD 4C 72.9 cm??? LV Systolic Volume MOD 4C 28.5 cm??? LV Ejection Fraction MOD 4C 60.9 % LV Cardiac Index MOD 4C 1958.6 cm???/min???m??? LV Diastolic Length 4C 7.7 cm LV Systolic Length 4C 6.3 cm LV Diastolic Volume MOD 2C 63.6 cm??? LV Systolic Volume MOD 2C 21.7 cm??? LV Ejection Fraction MOD 2C 65.8 % LV Cardiac Index MOD 2C 1847.3 cm???/min???m??? LV Diastolic Length 2C 7.4 cm LV Systolic Length 2C 5.9 cm M-MODE Aortic Root Diameter MM 3.3 cm LA Systolic Diameter MM 4.1 cm LA Ao Ratio MM 1.2 AV Cusp Separation MM 1.0 cm DOPPLER AV Peak Velocity 283.0 cm/s AV Peak Gradient 32.0 mmHg AV Mean Velocity 204.1 cm/s AV Mean Gradient 18.6 mmHg AV Velocity Time Integral 62.1 cm AI Peak Velocity 328.8 cm/s AI Peak Gradient 43.2 mmHg AI Pressure Half Time 585.3 ms LVOT Peak Velocity 113.1 cm/s LVOT Peak Gradient 5.1 mmHg LVOT Velocity Time Integral 25.5 cm LVOT Stroke Volume 95.4 cm??? LVOT Stroke Volume Index 44.6 ml/m??? LVOT Cardiac Index 4212.5 cm???/min???m??? AV Area Cont Eq vti 1.5 cm??? AV Area Cont Eq pk 1.5 cm??? Mitral E Point Velocity 83.3 cm/s Mitral A Point Velocity 100.5 cm/s Mitral E to A Ratio 0.8 MV Deceleration Time 227.7 ms MV E' Velocity 8.3 cm/s Mitral E to MV E' Ratio 10.0 TR Peak Velocity 324.8 cm/s TR Peak Gradient 42.2 mmHg Right Ventricular Systolic Press 52.2 mmHg FINDINGS Left Ventricle Left ventricular ejection fraction is estimated at 55-60 %. Left ventricular cavity size normal. Left ventricular wall thickness at upper limits of normal. Normal left ventricular systolic function with no obvious regional wall motion abnormalities. Right Ventricle Normal right ventricular size and function. Moderate pulmonary hypertension. Right Atrium Mild right atrial dilatation. Left Atrium Moderately increased left atrial diameter. Mitral Valve Structurally normal mitral valve. Mild mitral regurgitation. No mitral stenosis. Aortic Valve Mild aortic stenosis with a peak gradient of 32mmHg and a mean gradient of 18mmHg. Mild aortic regurgitation. Tricuspid Valve Structurally normal tricuspid valve.mild tricuspid regurgitation. No tricuspid prolapse. Pulmonic Valve Structurally normal pulmonic valve. Trace pulmonic regurgitation. No pulmonic stenosis. Pericardium No pericardial or pleural effusion. Aorta Normal size aortic root and proximal ascending aorta. CONCLUSIONS 1. Normal left ventricle size and systolic function 2. Mild aortic stenosis and aortic regurgitation 3. Mild mitral regurgitation 4. Mild tricuspid regurgitation with moderate pulmonary hypertension Previewed by: Dr. Arabella Hart MD (Electronically Signed) Final Date: 01 May 2024 12:22
--- NOTE | 2024-05-01 17:02 | P.PN ---
Subjective Progress Note Date: 05/01/24 History of present illness: Patient is a pleasant 78-year-old male with significant past medical history of hypertension, hyperlipidemia, neuropathy, restless leg, who recently underwent total knee replacement 04/26/2024 who presents with low blood pressure and dizziness. 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 He does not smoke, or drink alcohol. Denies any significant family history of heart disease. Cardiology was consulted for elevated troponin. He reports that he was switched to oxycodone 2 days ago and has noticed he has had low blood pressure, dizziness, weakness, head felt heavy. He also has not eaten much for the past couple days and has not had a bowel movement. He denies any chest pain or pressure. No shortness of breath or diaphoresis. Troponin 0.041, 0.030, 0.029. EKG shows sinus rhythm with no significant ST or T wave changes. He states he did have an echo preoperatively however denies having a stress test. These results are unavailable. Prior echocardiogram from 2019 with EF 55-60%, mild aortic stenosis. Ultrasound of the right lower extremity today was negative for DVT shows possible hematoma. REVIEW OF SYSTEMS: No fever or chills. No cough or expectoration. No diaphoresis. Patient denies headache, blurred vision, double vision. Patient denies any stomach discomfort. No nausea, vomiting. No hematochezia. No hematemesis. Denies any black stools or blood in his stools. Denies dysuria or hematuria. No muscle weakness or numbness. No chest pain or pressure. Reports right knee pain and swelling. Reports dizziness. PHYSICAL EXAMINATION: This is a 78-year-old male in no apparent distress at the time of my examination. HEENT: Head is atraumatic, normocephalic. Pupils are equal, round. Sclerae anicteric. Conjunctivae are clear. Mucous membranes of the mouth are moist. Neck is supple. There is no jugular venous distention. + carotid bruit is heard. CHEST EXAMINATION: Lungs are clear to auscultation. No chest wall tenderness is noted on palpation or with deep breathing. HEART EXAMINATION: Heart regular rate and rhythm. S1, S2 heard. 2/6 murmur. No gallops or rub. ABDOMEN: Soft, nontender. Bowel sounds are heard. EXTREMITIES: Right knee swelling with right lower extremity edema +1. NEUROLOGIC EXAMINATION: Patient is awake, alert and oriented x3. IMPRESSION AND PLAN: Hypertension Hyperlipidemia Neuropathy Restless leg syndrome Recent total knee replacement 04/26/2024 Dizziness Mild aortic stenosis Carotid bruit Elevated troponin PLAN: CTA did not show any evidence of PE. Echocardiogram showed preserved LV size and systolic function with no significant valve dysfunction other than mild aortic stenosis with mild MR. Patient does have evidence of moderate pulmonary hypertension. At this time patient is cleared from cardiovascular standpoint with recommended outpatient follow-up Objective - Vital Signs Vital signs: Vital Signs Temp 97.6 F 05/01/24 11:40 Pulse 69 05/01/24 11:40 Resp 17 05/01/24 11:40 BP 150/87 05/01/24 12:15 Pulse Ox 97 05/01/24 11:40 FiO2 Intake & Output 04/30/24 05/01/24 05/01/24 18:59 06:59 18:59 Output Total 0 Balance 0 Weight 99.3 kg Output: Stool 0 Other: Voiding Method Toilet Toilet Toilet # Voids 2 2 # Bowel Movements 1 0 - Labs CBC & Chem 7: 04/30/24 05:44 04/30/24 05:44
== END 2024-05-01 12:48 | disposition home health service (06) ==
LOC: EC 12:16 → 3SCARD 14:43
PROVIDERS: ADMIT Internal Medicine; ATTEND Internal Medicine
DX: I95.9 Hypotension, unspecified (principal); R79.89 Other specified abnormal findings of blood chemistry; R53.1 Weakness; G89.29 Other chronic pain; R09.89 Other specified symptoms and signs involving the circulatory and respiratory systems; E87.20 Acidosis, unspecified; R22.41 Localized swelling, mass and lump, right lower limb; I35.0 Nonrheumatic aortic (valve) stenosis; G25.81 Restless legs syndrome; I10 Essential (primary) hypertension; E78.5 Hyperlipidemia, unspecified; G62.9 Polyneuropathy, unspecified; Z85.46 Personal history of malignant neoplasm of prostate; Z86.73 Personal history of transient ischemic attack (TIA), and cerebral infarction without residual deficits; Z90.79 Acquired absence of other genital organ(s); Z96.651 Presence of right artificial knee joint; Z79.1 Long term (current) use of non-steroidal anti-inflammatories (NSAID); Z79.82 Long term (current) use of aspirin; Z79.899 Other long term (current) drug therapy; Z82.49 Family history of ischemic heart disease and other diseases of the circulatory system
CPT/HCPCS: 96376; 96361 ×3; 96372 ×4; 96375 ×2; 96374; 99285; 36415; 93005; 93306; 97161; 97166; 85379; 80061; 80053 ×2; 83605; 83735 ×2; 84484; 85025; 85027; 85610; 85730; 71046; 93971; 71275; G0378 ×3; J1644 ×3; J2405; J2270; J1171 ×2; Q9967

== ENCOUNTER → 2024-06-02 | Outpatient (CLI) | payer MEDICARE ==
[2024-06-02 10:30] LABS: African American GFR (CKD) >90 (>60 ml/min/1.73 sqM); Blood Urea Nitrogen 26 mg/dL (9-20); Non-African American GFR(CKD) 88 (>60 ml/min/1.73 sqM)
--- NOTE | 2024-06-02 12:11 | CT ---
EXAMINATION TYPE: CT abdomen pelvis w con CT DLP: 1705 mGycm, Automated exposure control for dose reduction was used. DATE OF EXAM: 06/02/2024 11:59 AM COMPARISON: Multiple CT abdomen pelvis with most recent 12/09/2023. CLINICAL INDICATION:Male, 78 years old with history of D60.9 ACQUIRED PURE RED CELL APLASIA, UNSPECIF IED; follow up for fibroid in lower pelvis , h/o prostate CA TECHNIQUE: Standard CT of the abdomen and pelvis following the administration of 100 cc of Isovue 3 00 IV contrast material and oral contrast. Coronal and sagittal reformats were performed. FINDINGS: LOWER CHEST: Unremarkable ABDOMEN LIVER: No focal lesion. Mildly enlarged and stable measuring 19.1 cm in CC dimension. GALLBLADDER AND BILE DUCTS: Unremarkable. PANCREAS: Unremarkable. SPLEEN: Unremarkable. ADRENAL GLANDS: Unremarkable. KIDNEYS AND URETERS: No evidence of hydronephrosis or renal calculus. The kidneys enhance symmetrical ly. Stable right renal cortical 1.6 cm cyst. PELVIS BLADDER: Unremarkable REPRODUCTIVE: Surgical changes from prostatectomy. No suspicious soft tissue within the surgical bed. ABDOMEN & PELVIS STOMACH AND BOWEL: Stomach and duodenum are unremarkable. Distal colonic diverticulosis without evide nce for acute diverticulitis. Enteric contrast reaches the mid small bowel. The appendix is within no rmal limits. No focal bowel wall thickening or surrounding inflammatory changes. No evidence of bowel obstruction. PERITONEUM: No evidence of pneumoperitoneum or free fluid. VASCULATURE: Stable fusiform aneurysmal dilatation of infrarenal abdominal aorta measuring up to 3.5 cm. MUSCULOSKELETAL: No acute osseous abnormalities. Degenerative changes of both SI joints with anterior bridging. Moderate multilevel degenerative disc disease. Degenerative grade 1 retrolisthesis of L1-L 2 and L2-L3, grade 1 anterolisthesis L4-L5. LYMPH NODES: No evidence for lymphadenopathy. SOFT TISSUE/ABDOMINAL WALL: Right fat filled inguinal hernia redemonstrated. IMPRESSION: 1. No CT evidence for recurrence or metastatic disease. 2. Similar mild hepatomegaly. 3. Stable infrarenal fusiform abdominal aortic aneurysm measuring 3.5 cm. 4. Colonic diverticulosis without evidence for acute radiculitis. [facility], , 06/02/2024 12:08 PM
== END | disposition home or self-care (01) ==
LOC: RADCTMAIN 09:48
PROVIDERS: ATTEND Internal Medicine Hematology & Oncology
DX: D60.9 Acquired pure red cell aplasia, unspecified (principal); R16.0 Hepatomegaly, not elsewhere classified; I71.40 Abdominal aortic aneurysm, without rupture, unspecified; K57.30 Diverticulosis of large intestine without perforation or abscess without bleeding; I10 Essential (primary) hypertension; E78.5 Hyperlipidemia, unspecified; Z71.3 Dietary counseling and surveillance
CPT/HCPCS: 82565; 84520; 74177; Q9967

== ENCOUNTER → 2024-06-08 | Outpatient (CLI) | payer MEDICARE ==
--- NOTE | 2024-06-08 18:28 | US ---
EXAMINATION TYPE: US venous doppler duplex LE RT DATE OF EXAM: 06/08/2024 4:10 PM COMPARISON: NONE CLINICAL INDICATION: Male, 78 years old with history of RLE; Z47.1 AFTERCARE FOLLOWING JOINT REPLACEM ENT S; Knee replacement in April. Swelling in right leg since. No hx of DVT, TECHNIQUE: The lower extremity deep venous system is examined utilizing real time linear array sonog orquidea with graded compression, color doppler sonography, and spectral doppler. SIDE PERFORMED: Right FINDINGS: VESSELS IMAGED: Common Femoral Vein Deep Femoral Vein Greater Saphenous Vein * Femoral Vein Popliteal Vein Small Saphenous Vein * Proximal Calf Veins (* superficial vessels) Right Leg: Negative for DVT, Color Doppler imaging shows patency of the vessels. Spectral waveforms are within normal limits. Complex area seen in right popliteal fossa measuring 4.7 x 2.5 x 1.2cm IMPRESSION: 1. Right lower extremity ultrasound negative for deep venous thrombosis. 2. Popliteal cyst right posterior popliteal fossa [facility], , 06/08/2024 6:26 PM
== END | disposition home or self-care (01) ==
LOC: RADUSWWP 15:41
PROVIDERS: ATTEND Orthopaedic Surgery
DX: M71.21 Synovial cyst of popliteal space [Baker], right knee (principal); M79.89 Other specified soft tissue disorders; Z47.1 Aftercare following joint replacement surgery

== ENCOUNTER → 2024-07-06 | Outpatient (CLI) | payer MEDICARE ==
--- NOTE | 2024-07-06 08:30 | US ---
EXAMINATION TYPE: US liver DATE OF EXAM: 07/06/2024 COMPARISON: CT 2023, US 2023 CLINICAL INDICATION: Male, 78 years old with history of K74.60 Unspecified cirrhosis of liver; Cirrho sis of the liver. TECHNIQUE: Grayscale and color Doppler imaging of the right upper quadrant. FINDINGS: EXAM MEASUREMENTS: Liver Length: 17.1 cm Gallbladder Wall: 0.23 cm CBD: 0.38 cm, color Doppler imaging was utilized to isolate the common bile duct for measurement. Right Kidney: 12.0 x 5.8 x 5.1 cm BEHAVIORAL HEALTH ASSOCIATE NOTES: Exam is limited due to gas. Pancreas: Obscured Liver: *Increased echogenicity, coarsened echotexture with nodularity to the contour Measures upper limits. Gallbladder: Fold noted Evidence for sonographic Abel's sign: No CBD: Appears wnl Right Kidney: *Anechoic area seen lower pole = 1.9 x 2.2 x 1.7 cm. IMPRESSION: 1. No evidence for acute process. 2. Right renal cyst. 3. Coarsened echotexture to liver correlate for hepatocellular disease the contour to liver is sligh tly nodular. [facility], , 07/06/2024 8:28 AM
== END | disposition home or self-care (01) ==
LOC: RADUSWWP 07:53
PROVIDERS: ATTEND Internal Medicine Gastroenterology
DX: K74.60 Unspecified cirrhosis of liver (principal); N28.1 Cyst of kidney, acquired
CPT/HCPCS: 76705

== ENCOUNTER → 2024-08-21 | Outpatient (CLI) | payer MEDICARE ==
--- NOTE | 2024-08-21 11:23 | CT ---
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 Coronal and sagittal rec onstructions performed. 3-D reconstructions generated on a dedicated workstation. CT DLP: 268 mGycm, Automated exposure control for dose reduction was used. FINDINGS: Diffuse soft tissue swelling is present. There is severe midfoot degenerative change particularly on the navicular cuneiform joint and moderate to severe along the second through fourth TMT joints. Desp ite osteopenia in the forefoot, there is relatively increased density in the midfoot and hindfoot wit h subchondral cystic change, bony debris, suggestion of fluid distending the joint spaces, and a supe rior subluxation/malalignment at the talonavicular joint. No acute fracture is seen. Moderate tibiota lar joint effusion. Achilles tendon appears intact. Small plantar heel spur. Pes planus deformity. IMPRESSION: MODERATE TO SEVERE MIDFOOT OSTEOARTHROSIS CHARACTERIZED BY INCREASED DENSITY, JOINT SPACE LOSS, SCATT ERED BONY DEBRIS, FLUID DISTENTION OF JOINT SPACES, AND SUBCHONDRAL CYSTIC CHANGE. THERE IS MALALIGNM ENT/SUBLUXATION AT THE TALONAVICULAR JOINT. Constellation of findings along with the pes planus favor s Charcot arthropathy. [facility], Workstation: [id number], 08/21/2024 11:20 AM
== END | disposition home or self-care (01) ==
LOC: RADCTMAIN 09:59
PROVIDERS: ATTEND Podiatrist
DX: M19.071 Primary osteoarthritis, right ankle and foot (principal); M14.60 Charcot's joint, unspecified site

== ENCOUNTER 2024-10-13 05:34 | Inpatient (IN) | payer MEDICARE ==
[~2024-10-13 05:34] MED LIST changes: +LIDOCAINE 1% (10MG/ML) FOR IV START INTRADERMA PRN; +MIDAZOLAM 2 MG/2 ML VIAL IV PRN; -ONDANSETRON 4 MG/2 ML VIAL IVP PRN; -TRANEXAMIC 1,000 MG/100ML-NACL 1,000 MG in SALINE 1 100ML.BAG IV PRN; -TRANEXAMIC 1,000 MG/100ML-NACL 1,000 MG in SALINE 1 100ML.BAG IVPB PRN; +fentaNYL (PF) 50 MCG/ML 2 ML AMP IVP PRN
[2024-10-13] MEDS: IV FLUID CONTINUATION 1,000 ML IV ONE (06:50)
[2024-10-13] MEDS: LACTATED RINGERS 1,000 ML IV SCH (06:50)
[2024-10-13] MEDS: ONDANSETRON 4 MG/2 ML VIAL IVP ONE (06:56)
[2024-10-13] MEDS: DEXAMETHASONE SOD PHOSPHATE 4 MG/ML 1 ML VIAL IV ONE (06:57)
[2024-10-13] MEDS: MIDAZOLAM 2 MG/2 ML VIAL IVP ONE (07:13)
[2024-10-13] MEDS ORDERED: LIDOCAINE 4% LTA KIT (4 ML) TOPICAL ONE (07:23)
[2024-10-13] MEDS ORDERED: PROPOFOL 10 MG/ML 20 ML VIAL IV ONE (07:23)
[2024-10-13] MEDS ORDERED: LIDOCAINE 1% INJ 10MG/ML (20 ML MDV) ONE (07:23)
[2024-10-13] MEDS ORDERED: DEXAMETHASONE SOD PHOSPHATE 4 MG/ML 1 ML VIAL ONE (07:23)
[2024-10-13] MEDS ORDERED: ePHEDrine 50 MG/ML 1 ML VIAL ONE (07:23)
[2024-10-13] MEDS ORDERED: fentaNYL (PF) 50 MCG/ML 2 ML AMP ONE (07:23)
[2024-10-13] MEDS ORDERED: SUCCINYLCHOLINE CHLORIDE 200 MG/10 ML VIAL IV ONE (07:23)
[2024-10-13] MEDS ORDERED: HYDROmorphone (PF) 1 MG/ML ONE (07:23)
[2024-10-13] MEDS ORDERED: ROPIVACAINE 5 MG/ML 30 ML VIAL ONE (07:23)
[2024-10-13] MEDS ORDERED: HYDROmorphone 0.5 MG/0.5 ML SYRINGE IVP PRN ×2 (10:11)
--- NOTE | 2024-10-13 10:53 | FL ---
EXAMINATION TYPE: FL guidance operating room DATE OF EXAM: 10/13/2024 CLINICAL HISTORY: Low back pain. TECHNIQUE: Fluoroscopy. COMPARISON: None. FINDINGS: Fluoroscopic guidance was provided during pain relief procedure performed by Dr. Garvin . A total of 47.1 seconds of fluoroscopic time was utilized during the procedure and two spot images are acquired. Images acquired shows needle localization . IMPRESSION: As Above. [facility], , 10/13/2024 10:51 AM
--- NOTE | 2024-10-13 11:02 | XR ---
Fluoroscopy History: ANKLE ARTHRODESIS RT ankle ORIF with Dey 47.1 sec fluoro time .4746 DAP 2 images saved LC [facility], , 10/13/2024 11:00 AM
--- NOTE | 2024-10-13 12:31 | P.HPIM ---
History of Present Illness H&P Date: 10/13/24 History of Presenting Illness: Patient is a very pleasant 78-year-old male with a past medical history of hypertension, hyperlipidemia, peripheral neuropathy with restless leg syndrome, and osteoarthritis. He is currently admitted to the hospital after undergoing a triple arthrodesis of right foot secondary to acquired deformity of right foot. Surgical procedure was completed by Dr. Dey. Patient being admitted under our services for medical management and placement in SNF. Patient seen and fully evaluated shortly after returning from the OR to room 459. He currently reports postoperative pain is controlled and denies having any postoperative nausea or vomiting. Patient tolerating coffee at this time and states that is all he needs in life. Patient encouraged to advance diet as tolerated. He denies having any headache, lightheadedness, dizziness, chest pain, palpitations, shortness of breath, or any other complaints at this time. Postoperative dressing/splint in place. Review of systems: Pertinent positives and negatives as discussed in HPI, a complete review of systems was performed and all other systems are negative. Physical exam: Vital signs reviewed and stable. General: Nontoxic, no distress and appears stated age. Derm: Skin warm and dry, normal coloration for ethnicity. Head: Atraumatic, normocephalic and symmetric. Eyes: EOM's intact, no lid lag, and anicteric sclera Mouth: no lip lesions, mucus membranes moist Cardiovascular: regular rate and rhythm with normal S1S2, no murmur, positive posterior tibial pulses bilaterally, and cap refill < 2 seconds. Lungs: Respirations even, regular, and unlabored on room air. Lungs CTA bilaterally, no rhonchi, no rales, no wheezing, and no accessory muscle usage. Abdominal: soft, nontender to palpation, no guarding, no appreciable organomegaly Ext: No gross muscle atrophy, no edema, no contractures. Movement and sensation intact. Postoperative dressing/splint in place right lower extremity/foot. Neuro: Speech clear, face symmetrical and CN II-XII grossly intact with no noted focal neuro deficits Psych: Alert and oriented to person, place, time, and situation. Appropriate and pleasant affect. Assessment and Plan of Care: Status post right foot triple arthrodesis -Management per orthopedic surgery team including DVT prophylaxis, pain management, wound/dressing management, weightbearing, and PT/OT. -Consult placed to case management for assistance with placement in ECF. Patient requesting Regen. Hypertension Monitor vital signs and continue daily medication regimen with losartan/hydrochlorothiazide 100/25 mg tablets daily.- Hyperlipidemia -Continue daily medication regimen with pravastatin 40 mg every 48 hours. Peripheral neuropathy -Continue Requip 2 mg twice daily and Lyrica 200 mg twice daily. Data reviewed: Labs ordered and reviewed upon completion.. CBC showing bicytopenia with hemoglobin of 12.8 and platelet count of 140. BMP showing mild hyponatremia with sodium of 136 and elevated glucose of 147 otherwise normal findings. Magnesium was 1.8. Liver profile unremarkable. Vital signs reviewed. Blood pressure 125/55, heart rate 61, respiratory rate 16, temp 98.5 F, and SpO2 of 95% on room air. CODE STATUS: Full code DVT prophylaxis: SCDs Anticipated discharge date: Pending placement in SNF Anticipated discharge place: SNF Patient was seen independently by Nurse Practitioner. This document was prepared using [employer] dictation software. Please allow for errors in hide cooking operator while rare they do occur. Joseph Petersen NP rendered care for this patient independently, reviewed the findings and plan as documented in the note above and agree with plan. I did not physically speak with or examine the patient on this date. Past Medical History Past Medical History: Cancer, CVA/TIA, Hyperlipidemia, Hypertension Additional Past Medical History / Comment(s): neuropathy in legs, neuropathy & restless leg pain, hx. prostate cancer 2006, TIA 2 yrs. ago-no residual effects, fatty liver History of Any Multi-Drug Resistant Organisms: None Reported Past Surgical History: Hernia Repair, Joint Replacement, Orthopedic Surgery, Prostate Surgery Additional Past Surgical History / Comment(s): right knee surgery, robotic prostatectomy, tarsal tunnel surgery on left foot. right knee replaced 2023 Past Anesthesia/Blood Transfusion Reactions: No Reported Reaction Additional Past Anesthesia/Blood Transfusion Reaction / Comment(s): no hx of blood transfusion, slow to wake up after knee replacement in Apr. Smoking Status: Former smoker - Past Family History Father History Unknown: Yes Mother Family Medical History: Coronary Artery Disease (CAD) Additional Family Medical History / Comment(s): CABG Medications and Allergies Home Medications Medication Instructions Recorded Confirmed Type Hydrocodone/Acetaminophen [[place] 1 tab PO TID 06/21/19 10/13/24 History 10-325] Pravastatin Sodium [Pravachol] 40 mg PO Q48H 06/21/19 10/13/24 History Pregabalin 200 mg PO BID 06/21/19 10/13/24 History Cholecalciferol (Vitamin D3) 50 mcg PO DAILY 10/23/23 10/13/24 History [Vitamin D3 (50 Mcg = 2000 Iu)] Cyanocobalamin (Vitamin B-12) 1,000 mcg PO DAILY 10/23/23 10/13/24 History [Vitamin B-12] Folic Acid 1 mg PO DAILY 10/23/23 10/13/24 History rOPINIRole HCL [Requip XL] 2 mg PO BID 10/23/23 10/13/24 History Losartan/Hydrochlorothiazide 1 tab PO DAILY 04/29/24 10/13/24 History [Hyzaar 100-25 Tablet] Aspirin 81 mg PO DAILY 10/11/24 10/13/24 History oxyBUTYnin chloride [oxyBUTYnin 5 mg PO DAILY 10/11/24 10/13/24 History chloride ER] Allergies Allergy/AdvReac Type Severity Reaction Status Date / Time oxycodone AdvReac made BP Verified 10/13/24 06:20 extremely low Physical Exam Vitals: Vital Signs Temp Pulse Pulse Resp BP Pulse Ox 10/13/24 10:15 67 14 115/59 95 10/13/24 10:12 98.5 F 77 14 127/58 95 10/13/24 07:20 56 L 14 111/56 95 10/13/24 07:12 57 L 16 144/62 98 10/13/24 06:15 97.5 F L 62 16 134/61 97 Intake and Output 10/12/24 10/13/24 10/13/24 22:59 06:59 14:59 Intake Total 100 750 Output Total 100 Balance 100 650 Intake: IV 100 750 Output: Estimated Blood Loss 100 Other: Weight 105.3 kg Results CBC & Chem 7: 10/13/24 14:59 10/13/24 14:59 Thrombosis Risk Factor Assmnt - Choose All That Apply Each Factor Represents 1 point: Minor surgery planned, Obesity (BMI >25) Each Risk Factor Represents 3 Points: Age 75 years or older Thrombosis Risk Factor Assessment Total Risk Factor Score: 5 Thrombosis Risk Factor Assessment Level: High Risk
--- NOTE | 2024-10-13 12:43 | P.OP ---
Date of Procedure: 10/13/24 Preoperative Diagnosis: Acquired deformity of right foot Postoperative Diagnosis: Same Procedure(s) Performed: Triple arthrodesis right foot Implants: Arthrex 7.0 mm headless screws x 2 Arthrex 5.0 mm headless screws x 2 Arthrex 20 mm x 20 mm compression staple 20 cc of bone allograft Anesthesia: YAHAIRA Surgeon: Cecilio Dey Estimated Blood Loss (ml): 100 Pathology: none sent Condition: stable Disposition: PACU Description of Procedure: Prior to the patient being brought to the op room, anesthesia administered a nerve block on the right lower extremity. The patient was brought into the operating room and placed on the table in supine position. Timeout was taken to confirm correct patient identifiers, correct laterality of surgery, and correct procedure. Once all staff in the room was in agreement the timeout, the patient was induced and placed under general anesthesia. A well-padded tourniquet was placed on the right thigh and a wedge beneath the right hip to internally rotate the right leg. The right leg was then prepped and draped usual manner. Attention was directed to the anterior medial aspect of the tibia, just proximal to the ankle joint. A trocar and cannula were impacted into the medullary canal of the tibia. Syringes, that had been prepared on the back table, were placed on the cannula after the trocar was removed. Approximately 55 cc of bone marrow aspirate was removed. The syringes were passed off the operative field to be centrifuge down to bone marrow concentrate which would later be used for the bone graft material. Once the aspiration was completed, the leg was exsanguinated, the knee flexed, and the tourniquet inflated to 250 mmHg. Attention was first directed over the lateral aspect of the hindfoot. A curvilinear linear incision was made starting at the tip of the lateral malleolus and extending towards the base of the fourth and fifth metatarsals. The incision was deepened down to the subcutaneous tissue careful to identify, void, and retract any neurovascular structures and cauterize any bleeding vessels. Blunt dissection was then carried down to the joint capsule of both the subtalar joint as well as the calcaneocuboid joints. The peroneal tendons were identified and sharply resected off the lateral surface of the calcaneus and 1 flap and retracted plantarly. An arthrotomy was performed over the subtalar joint to allow access to that joint and all interosseous ligaments were released. A distractor was placed across the subtalar joint first to allow for easy access. Sharp osteotomes were used to remove the articular cartilage first. A joint prep wedge bur was then utilized to remove any remaining cartilage as well as a subchondral bone and expose bleeding medullary bone. Once completed the area was checked visually and it was noted that the debridement was complete. Then the tooth conjoining surfaces of the subtalar joint were aggressively fenestrated to promote bleeding and bony ingrowth. Then attention was directed to the calcaneocuboid joint through the same incision. A dorsal arthrotomy was performed to expose the joint the same distractor was applied across the calcaneocuboid joint to distracted allow for easy access. Sharp osteotomes were used to remove the articular cartilage. Another joint prep wedge bur was utilized to remove the subchondral bone down to bleeding medullary bone. Once the joint preparations were complete the entire surgical side was thoroughly irrigated with antibiotic saline. Moistened gauze was placed into the large incision and then attention was directed to the medial aspect of the foot. A long incision was made over the talonavicular joint. The incision was deepened down to the subcutaneous tissue careful to identify, avoid, and retract any neurovascular structures and cauterize any bleeding vessels. Blunt dissection was carried down to the joint capsule. An incision was made along the dorsal medial aspect of the capsule to avoid the posterior tibial tendon. The capsule as well as the posterior tibial tendon were all reflected from the talonavicular joint and 1 thick flap. A distractor was applied across the joint which allowed for easy access. Osteotomes were used to remove the articular cartilage from the head of the talus and the articular surface of the navicular. The joint prep a wedge bur was then used to remove any articular cartilage as well as a subchondral bone. This was done until there was exposed bleeding medullary bone on both sides of the arthrodesis site. Once that completed, the joint surfaces were aggressively fenestrated to promote bony ingrowth. That area was then thoroughly irrigated with antibiotic saline. Once joint prep was completed, the surgery moved forward with deformity correction as well as fixation. The talonavicular joint was addressed first. The allograft and the bone marrow aspirate were mixed on the back table, and portions were placed between the arthrodesis segments of the talonavicular joint. Under direct fluoroscopic visualization, the talonavicular joint was held in a reduced position. A guidewire for a 5.0 mm headless screw was placed on the medial aspect of the navicular at the cuneiform articulation. The wire was advanced proximal lateral and superior into the talar body. AP and lateral view showed that the wire had appropriate trajectory. Over drilling was performed and then a 5.0 mm headless screw was placed over the wire and advanced until the threads were buried into the navicular. Fluoroscopic imaging showed compression of the talonavicular arthrodesis in the area of the screw as well as proper placement of the screw. Then attention was directed to the subtalar joint. The same allograft was placed between the arthrodesis segments of the talus and the calcaneus. The varus deformity was taken out of the calcaneus so that it was rectus beneath the leg. Once that position was confirmed guidewires for 7.0 mm headless screws were inserted on the plantar posterior aspect of the calcaneus. Under fluoroscopy the wires were directed to cross the subtalar joint. Once the first wire was done the second wire was placed superior to it and ran in a parallel direction. AP ankle and lateral ankle views with fluoroscopy showed proper placement of the wires. Small stab incisions were made through the skin around the wires to facilitate the drilling as well as the screw placement. Drilling was done over the plantar wire first and then a 7.0 millimeter screw was inserted and advanced until it was fully seated in the calcaneus. Fluoroscopy indicated there was compression of the subtalar joint. A second 7.0 millimeter screw was inserted over the more superior wire in a similar fashion. Fluoroscopic imaging showed proper placement of the screws on the AP and lateral views. And stressing of the subtalar joint did not show any signs of motion or gapping. Attention directed to the calcaneocuboid joint. Bone graft was inserted into the fusion site. Then a 20 x 20 mm compression staple was inserted across the arthrodesis site. Once the tray line supervisor was released the arms were allowed to compress which compressed the arthrodesis site. Visually compression was noted and fluoroscopy confirmed also. An attempt to put another stable over the talonavicular arthrodesis site was not successful. Therefore a second screw was placed on the dorsal lateral aspect of the navicular and into the talus. Under fluoroscopic visualization the wire was placed in the appropriate area of the navicular it was then advanced slightly plantar to the first screw and directed medial and proximal. Drilling was performed and then a 5.0 mm headless compression screw was placed over the wire and it was advanced until it was flush with the navicular. Fluoroscopic imaging showed proper placement of screw on AP and lateral views. It also showed significant compression of the talonavicular joint. Overall fluoroscopy showed reduction of the talonavicular joint which was nearly subluxed preoperatively. There is temple of the medial arch and increase in calcaneal inclination. At that point all wounds were thoroughly irrigated with antibiotic saline. Deep closure was done with 0 Vicryl. Subcutaneous closure was done with 3-0 Monocryl. And skin closure done with primo. Arthrex jumpstart was placed over all the incisions and then a bulky dry dressing is applied to the foot and ankle. The tourniquet was released and capillary refill returned all digits on the foot. A bulky Mark dressing was applied to the right foot and leg. A well-padded, well molded plaster posterior mold/sugar-tong splint was applied to the leg. The ankle was held in neutral position and the foot slightly inverted until the splint was dried. The patient tolerated the above procedure and anesthesia well. Patient left the operating room to recovery with vital signs stable.
[2024-10-13 15:23] LABS: HGB 12.8 gm/dL (13.0-17.5); MCH 29.8 pg (25.0-35.0); MCHC 32.8 g/dL (31.0-37.0); MCV 90.9 fL (80.0-100.0); Mean Platelet Volume 8.4; Platelet Count 140 k/uL (150-450); RBC 4.29 m/uL (4.30-5.90); RDW 14.3 % (11.5-15.5); WBC 6.9 k/uL (3.8-10.6)
[2024-10-13 15:33] LABS: ALT 16 U/L (4-49); AST 21 U/L (17-59); African American GFR (CKD) >90 (>60 ml/min/1.73 sqM); Albumin 4.4 g/dL (3.5-5.0); Alkaline Phosphatase 91 U/L (38-126); Anion Gap 9 mmol/L; Blood Urea Nitrogen 18 mg/dL (9-20); Calcium 9.3 mg/dL (8.4-10.2); Carbon Dioxide 25 mmol/L (22-30); Chloride 102 mmol/L (98-107); Glucose 147 mg/dL (74-99); Magnesium 1.8 mg/dL (1.6-2.3); Non-African American GFR(CKD) >90 (>60 ml/min/1.73 sqM); Potassium 3.9 mmol/L (3.5-5.1); Sodium 136 mmol/L (137-145); Total Bilirubin 0.7 mg/dL (0.2-1.3); Total Protein 6.6 g/dL (6.3-8.2)
[2024-10-13] MEDS: PREGABALIN 100 MG CAP PO SCH (21:11)
[2024-10-13] MEDS: PRAVASTATIN SODIUM 40 MG TAB PO SCH (21:11)
[2024-10-13] MEDS: HYDROcodone/APAP 5-325MG 1 EACH TAB PO PRN (21:35)
[2024-10-14] MEDS: FOLIC ACID 1 MG TAB PO SCH (08:32)
[2024-10-14] MEDS: ASPIRIN 81 MG PO SCH (08:32)
[2024-10-14] MEDS: CYANOCOBALAMIN 500 MCG TAB PO SCH (08:32)
[2024-10-14] MEDS: OXYBUTYNIN XL 5 MG TAB.ER.24 PO SCH (08:33)
[2024-10-14] MEDS: LOSARTAN-HCTZ 50-12.5 MG 1 EACH TAB PO SCH (08:33)
[2024-10-14] MEDS: CHOLECALCIFEROL 25 MCG (1000 IU) TABLET PO SCH (08:33)
[2024-10-14 09:51] LABS: HCT 34.5 % (39.6-50.0); HGB 11.2 g/dL (13.0-17.0); MCH 29.5 pg (27.0-32.0); MCHC 32.5 g/dL (32.0-37.0); MCV 90.8 FL (80.0-97.0); Mean Platelet Volume 11.2 FL (9.5-12.2); NRBC Per 100 WBC 0 X 10*3/uL (0.00-0.01); Platelet Count 154 X 10*3/uL (140-440); RDW 14.5 % (11.5-14.5); WBC 8.59 X 10*3/uL (4.50-10.00)
--- NOTE | 2024-10-14 09:56 | P.PN ---
Subjective Progress Note Date: 10/14/24 Patient visited at bedside. Patient is postop day #1 following triple arthrodesis of the right foot. Patient is doing well. The right lower extremity nerve block is still active and patient states that he has no pain at this time. Denies nausea, vomiting, fever, chills, calf pain or shortness of breath. Awaiting placement in rehab upon discharge Objective - Vital Signs Vital signs: Vital Signs Temp 97.9 F 10/14/24 03:33 Pulse 65 10/14/24 03:33 Resp 14 10/14/24 03:33 BP 133/53 10/14/24 03:33 Pulse Ox 90 L 10/14/24 03:33 FiO2 Intake & Output 10/13/24 10/14/24 10/14/24 18:59 06:59 18:59 Intake Total 750 1650 Output Total 500 1350 Balance 250 300 Weight 105.3 kg Intake: IV 750 Oral 1650 Output: Urine 400 1350 Estimated Blood Loss 100 - Exam Well-padded below-knee splint in place on the right leg. Digits are warm, pink, and well-perfused. At this time patient has absent light touch sensation of the digits secondary to the block and underlying neuropathy Capillary refill is less than 3 seconds to all digits on the right foot Patient is afebrile and vitals are stable - Labs CBC & Chem 7: 10/14/24 02:53 10/13/24 14:59 Labs: Abnormal Lab Results - Last 24 Hours (Table) 10/13/24 10/13/24 10/14/24 Range/Units 14:59 14:59 02:53 RBC 4.29 L 3.80 L (4.30-5.90) m/uL Hgb 12.8 L 11.2 L (13.0-17.5) gm/dL Hct 34.5 L (39.6-50.0) % Plt Count 140 L (150-450) k/uL Sodium 136 L (137-145) mmol/L Glucose 147 H (74-99) mg/dL Assessment and Plan (1) Other acquired deformities of right foot Current Visit: Yes Status: Acute Code(s): M21.6X1 - OTHER ACQUIRED DEFORMITIES OF RIGHT FOOT SNOMED Code(s): 183976876 (2) Subluxation of tarsal joint of right foot, subsequent encounter Current Visit: Yes Status: Acute Code(s): S93.311D - SUBLUXATION OF TARSAL JOINT OF RIGHT FOOT, SUBS ENCNTR SNOMED Code(s): 55259347675426515 Plan: Patient is doing well at this point. Patient instructed to keep right foot elevated when sitting or in bed. Maintain nonweightbearing on the right lower extremity. Case management involved and patient is awaiting discharge to rehabilitation facility. Patient is scheduled follow-up on October [address] Dey
[2024-10-14 10:25] LABS: ALT 12 U/L (10-49); AST 16 U/L (14-35); Albumin/Globulin Ratio 2.35 Ratio (1.60-3.17); Alkaline Phosphatase 87 U/L (41-126); Blood Urea Nitrogen 17.5 mg/dL (9.0-27.0); Calcium 8.8 mg/dL (8.7-10.3); Chloride 102 mmol/L (96-109); Globulin 1.7 g/dL (1.6-3.3); Glucose 155 mg/dL (70-110); Magnesium 1.9 mg/dL (1.5-2.4); Potassium 4.3 mmol/L (3.5-5.5); Sodium 140 mmol/L (135-145); Total Bilirubin 0.3 mg/dL (0.3-1.2); Total Protein 5.7 g/dL (6.2-8.2)
--- NOTE | 2024-10-14 13:21 | P.PN ---
Subjective Progress Note Date: 10/14/24 Hospital course:: Patient is a very pleasant 78-year-old male with a past medical history of hypertension, hyperlipidemia, peripheral neuropathy with restless leg syndrome, and osteoarthritis. He is currently admitted to the hospital after undergoing a triple arthrodesis of right foot secondary to acquired deformity of right foot. Surgical procedure was completed by Dr. Dey. Patient being admitted under our services for medical management and placement in SNF. Physical exam: Patient seen and fully evaluated at bedside he is postoperative day 1 status post right foot triple arthrodesis. Patient currently reports mild throbbing in his foot otherwise denies having any complaints. He denies having any headache, lightheadedness, dizziness, chest pain, palpitations, shortness of breath or any other complaints. Sensation and movement intact in right toes. Vital signs reviewed and stable. General: Nontoxic, no distress and appears stated age. Derm: Skin warm and dry, normal coloration for ethnicity. Head: Atraumatic, normocephalic and symmetric. Eyes: EOM's intact, no lid lag, and anicteric sclera Mouth: no lip lesions, mucus membranes moist Cardiovascular: regular rate and rhythm with normal S1S2, no murmur, positive posterior tibial pulses bilaterally, and cap refill < 2 seconds. Lungs: Respirations even, regular, and unlabored on room air. Lungs CTA bilaterally, no rhonchi, no rales, no wheezing, and no accessory muscle usage. Abdominal: soft, nontender to palpation, no guarding, no appreciable organomegaly Ext: No gross muscle atrophy, no edema, no contractures. Movement and sensation intact. Postoperative dressing/Ortho-Glass splint in place right lower extremity/foot. Neuro: Speech clear, face symmetrical and CN II-XII grossly intact with no noted focal neuro deficits Psych: Alert and oriented to person, place, time, and situation. Appropriate and pleasant affect. Assessment and Plan of Care: Status post right foot triple arthrodesis -Management per orthopedic surgery team including DVT prophylaxis, pain management, wound/dressing management, weightbearing, and PT/OT. -Consult placed to case management for assistance with placement in ECF. Patient requesting [facility]. Hypertension Monitor vital signs and continue daily medication regimen with losartan/hydrochlorothiazide 100/25 mg tablets daily.- Hyperlipidemia -Continue daily medication regimen with pravastatin 40 mg every 48 hours. Peripheral neuropathy -Continue Requip 2 mg twice daily and Lyrica 200 mg twice daily. Data reviewed: Postoperative labs reviewed. CBC showing mild acute blood loss anemia with hemoglobin of 11.2. BMP unremarkable. Blood glucose 155. Magnesium 1.9. Liver profile unremarkable. Vital signs reviewed. Blood pressure 126/56, heart rate 67, respiratory rate 18, temp 97.8 F, and SpO2 of 97% on room air CODE STATUS: Full code DVT prophylaxis: SCDs Anticipated discharge date: Pending placement in SNF Anticipated discharge place: SNF Patient was seen independently by Nurse Practitioner. This document was prepared using [employer] dictation software. Please allow for errors in final application reviewer while rare they do occur. Joseph Petersen NP rendered care for this patient independently, reviewed the findings and plan as documented in the note above and agree with plan. I did not physically speak with or examine the patient on this date. Objective - Vital Signs Vital signs: Vital Signs Temp 97.9 F 10/14/24 03:33 Pulse 65 10/14/24 03:33 Resp 14 10/14/24 03:33 BP 133/53 10/14/24 03:33 Pulse Ox 90 L 10/14/24 03:33 FiO2 Intake & Output 10/13/24 10/14/24 10/14/24 18:59 06:59 18:59 Intake Total 750 1650 Output Total 500 1350 Balance 250 300 Weight 105.3 kg Intake: IV 750 Oral 1650 Output: Urine 400 1350 Estimated Blood Loss 100 - Labs CBC & Chem 7: 10/14/24 02:53 10/14/24 02:53 Labs: Abnormal Lab Results - Last 24 Hours (Table) 10/13/24 10/13/24 Range/Units 14:59 14:59 RBC 4.29 L (4.30-5.90) m/uL Hgb 12.8 L (13.0-17.5) gm/dL Plt Count 140 L (150-450) k/uL Sodium 136 L (137-145) mmol/L Glucose 147 H (74-99) mg/dL
[2024-10-14] MEDS: HYDROmorphone 0.5 MG/0.5 ML SYRINGE IVP PRN (19:27)
[2024-10-15 10:17] LABS: HCT 35.3 % (39.0-53.0); HGB 11.6 gm/dL (13.0-17.5); MCH 29.4 pg (25.0-35.0); MCHC 32.8 g/dL (31.0-37.0); MCV 89.5 fL (80.0-100.0); Mean Platelet Volume 8.4; Platelet Count 133 k/uL (150-450); RBC 3.94 m/uL (4.30-5.90); RDW 13.9 % (11.5-15.5); WBC 7.1 k/uL (3.8-10.6)
[2024-10-15 10:26] LABS: African American GFR (CKD) >90 (>60 ml/min/1.73 sqM); Anion Gap 4 mmol/L; Blood Urea Nitrogen 18 mg/dL (9-20); Calcium 8.5 mg/dL (8.4-10.2); Carbon Dioxide 31 mmol/L (22-30); Chloride 100 mmol/L (98-107); Glucose 106 mg/dL (74-99); Magnesium 1.8 mg/dL (1.6-2.3); Non-African American GFR(CKD) 88 (>60 ml/min/1.73 sqM); Potassium 3.7 mmol/L (3.5-5.1); Sodium 135 mmol/L (137-145)
--- NOTE | 2024-10-15 12:20 | P.PN ---
Subjective Progress Note Date: 10/15/24 Hospital course:: Patient is a very pleasant 78-year-old male with a past medical history of hypertension, hyperlipidemia, peripheral neuropathy with restless leg syndrome, and osteoarthritis. He is currently admitted to the hospital after undergoing a triple arthrodesis of right foot secondary to acquired deformity of right foot. Surgical procedure was completed by Dr. eDy. Patient being admitted under our services for medical management and placement in SNF. Physical exam: Patient seen and fully evaluated at bedside he is postoperative day 2 status post right foot triple arthrodesis. Patient reports postoperative pain is better however reporting pain in the left ankle and foot today believed to be secondary to increased use and having to only ambulate with 1 foot. Vital signs reviewed and stable. General: Nontoxic, no distress and appears stated age. Derm: Skin warm and dry, normal coloration for ethnicity. Head: Atraumatic, normocephalic and symmetric. Eyes: EOM's intact, no lid lag, and anicteric sclera Mouth: no lip lesions, mucus membranes moist Cardiovascular: regular rate and rhythm with normal S1S2, no murmur, positive posterior tibial pulses bilaterally, and cap refill < 2 seconds. Lungs: Respirations even, regular, and unlabored on room air. Lungs CTA bilaterally, no rhonchi, no rales, no wheezing, and no accessory muscle usage. Abdominal: soft, nontender to palpation, no guarding, no appreciable organomegaly Ext: No gross muscle atrophy, no edema, no contractures. Movement and sensation intact. Postoperative dressing/Ortho-Glass splint in place right lower extremity/foot. Neuro: Speech clear, face symmetrical and CN II-XII grossly intact with no noted focal neuro deficits Psych: Alert and oriented to person, place, time, and situation. Appropriate and pleasant affect. Assessment and Plan of Care: Status post right foot triple arthrodesis -Management per orthopedic surgery team including DVT prophylaxis, pain management, wound/dressing management, weightbearing, and PT/OT. -Consult placed to case management for assistance with placement in ECF. Patient requesting [facility]. Left foot and ankle pain -Believed to be secondary to increased use and weightbearing all on left foot, will obtain an x-ray left foot and ankle and continue current medication regimen. Also discussed with RN if x-ray is negative will talk with PT for the recommended exercises to help strengthen left ankle/foot to improve chances for better ambulation. Postoperative blood loss anemia, stable and expected finding Mild thrombocytopenia -Hemoglobin stable at 11.6 and platelet count of 133. Hypertension Monitor vital signs and continue daily medication regimen with losartan/hydrochlorothiazide 100/25 mg tablets daily.- Hyperlipidemia -Continue daily medication regimen with pravastatin 40 mg every 48 hours. Peripheral neuropathy -Continue Requip 2 mg twice daily and Lyrica 200 mg twice daily. Data reviewed: Morning labs reviewed showing stable postoperative blood loss anemia with hemoglobin of 11.6 and platelet count of 133. BMP showing sodium 135 and bicarb of 31 otherwise normal findings. Blood glucose was 106. Magnesium 1.8. Vital signs reviewed. Blood pressure 153/63, heart rate 99, respiratory rate 16, temp 98.2 F, and SpO2 of 96% on room air. CODE STATUS: Full code DVT prophylaxis: SCDs Anticipated discharge date: Pending placement in SNF Anticipated discharge place: SNF Patient was seen independently by Nurse Practitioner. This document was prepared using [employer] dictation software. Please allow for errors in boat loader helper while rare they do occur. Joseph Petersen NP rendered care for this patient independently, reviewed the findings and plan as documented in the note above and agree with plan. I did not physically speak with or examine the patient on this date. Objective - Vital Signs Vital signs: Vital Signs Temp 98.2 F 10/15/24 02:11 Pulse 69 10/15/24 02:11 Resp 15 10/15/24 02:11 BP 126/63 10/15/24 02:11 Pulse Ox 96 10/15/24 02:11 FiO2 Intake & Output 10/14/24 10/15/24 10/15/24 18:59 06:59 18:59 Intake Total 2300 Balance 2300 Intake: Oral 2300 Other: Voiding Method Toilet Urinal # Voids 3 6 - Labs CBC & Chem 7: 10/15/24 09:52 10/15/24 09:52 Labs: Abnormal Lab Results - Last 24 Hours (Table) 10/14/24 10/14/24 Range/Units 02:53 02:53 RBC 3.80 L (4.40-5.60) X 10*6/uL Hgb 11.2 L (13.0-17.0) g/dL Hct 34.5 L (39.6-50.0) % Glucose 155 H (70-110) mg/dL Total Protein 5.7 L (6.2-8.2) g/dL
--- NOTE | 2024-10-15 13:25 | XR ---
EXAMINATION TYPE: XR ankle complete LT, XR foot complete LT DATE OF EXAM: 10/15/2024 CLINICAL INDICATION: Male, 78 years old with history of Left foot and ankle pain new since right foot surg, pain TECHNIQUE: Frontal, lateral and oblique images of the left ankle are obtained. COMPARISON: None. FINDINGS: There is no acute fracture/dislocation evident in the left ankle or foot. The ankle morti se appears within normal limits. Moderate spurring at the midfoot level is present greatest along the dorsal aspect. There is linear soft tissue foreign body in the region of the distal second toe. Pat elate clinically. IMPRESSION: As above [facility], , 10/15/2024 1:22 PM
--- NOTE | 2024-10-15 18:21 | P.ANPRN ---
Procedure Note - Anesthesia - Nerve Block Performed Right Popliteal Single Time Out Performed: Yes Date of Procedure: 10/13/24 Procedure Start Time: 07:12 Procedure Stop Time: 07:16 Location of Patient: PreOp Indication: Acute Post-Operative Pain, Requested by Surgeon Sedation Type: Sedate with meaningful contact maintained Preparation: Sterile Prep Position: Left Lateral Needle Types: Pajunk Needle Gauge: 21 Ultrasound used to visualize needle placement: Yes Ultrasound used to observe medication spread: Yes Blood Aspirated: No Pain Paresthesia on Injection Noted: No Resistance on Injection: Normal Image Stored and Saved: Yes Events: Uneventful and Well Tolerated (Ropivacaine 0.5% 20 cc plus dexamethasone 4 mg)
--- NOTE | 2024-10-15 18:22 | P.ANPRN ---
Procedure Note - Anesthesia - Nerve Block Performed Right Adductor Canal Single Time Out Performed: Yes Date of Procedure: 10/13/24 Procedure Start Time: :17 Procedure Stop Time: 07:20 Location of Patient: PreOp Indication: Acute Post-Operative Pain, Requested by Surgeon Sedation Type: Sedate with meaningful contact maintained Preparation: Sterile Prep Position: Supine Needle Types: Pajunk Needle Gauge: 21 Ultrasound used to visualize needle placement: Yes Ultrasound used to observe medication spread: Yes Blood Aspirated: No Pain Paresthesia on Injection Noted: No Resistance on Injection: Normal Image Stored and Saved: Yes Events: Uneventful and Well Tolerated (Ropivacaine 0.5% 20 cc plus dexamethasone 4 mg)
[2024-10-15] MEDS: SENNOSIDES-DOCUSATE SODIUM 1 EACH TAB PO PRN (22:28)
[2024-10-16] MEDS: ONDANSETRON 4 MG/2 ML VIAL IVP PRN (03:11)
[2024-10-16 08:54] VITALS: BP 125/71; PULSE 64; RESP 18; TEMP 98.2
--- NOTE | 2024-10-16 13:51 | P.DS ---
Providers Date of admission: 10/13/24 10:09 Expected date of discharge: 10/16/24 Attending physician: Krystian Jacobo Consults: 10/13/24 10:15 Consult Physician Routine Consulting Provider: Krystian Jacobo Consult Reason/Comments: Admit for rehab placement at D/C Do you want consulting provider notified?: Yes Primary care physician: OKSANA Lion Hospital Course: Discharge Diagnosis: Status post right foot triple arthrodesis. Patient to remain nonweightbearing of right lower extremity pending follow-up appointment at orthopedic surgeries o ffice and further advancement of activity per their directions. Left foot and ankle pain. X-ray left foot and ankle negative for acute fracture or dislocation the ankle more T's appears within normal limits. Moderate spurring of the midfoot level is present greatest along the dorsal aspect, linear soft tissue foreign body appeared to be in region of distal second toe patient denies any pain in toe and no open wounds suspicious for injury. Patient reports pain mostly to ankle region and heel of left foot. Believed to be secondary to increased use and weightbearing all on left foot, patient r eports much better today and was able to ambulate/hop on 1 foot with physical therapy this morning without any difficulties. Postoperative blood loss anemia, stable and expected finding. Hemoglobin stable at 11.6 on discharge and platelet count of 133. Mild thrombocytopenia Hypertension. Monitor vital signs and continue daily medication regimen with losartan/hydrochlorothiazide 100/25 mg tablets daily. Hyperlipidemia. Continue daily medication regimen with pravastatin 40 mg every 48 hours. Peripheral neuropathy. Continue Requip 2 mg twice daily and Lyrica 200 mg twice daily. Hospital Course: Patient is a very pleasant 78-year-old male with a past medical history of hypertension, hyperlipidemia, peripheral neuropathy with restless leg syndrome, and osteoarthritis. He is currently admitted to the hospital after undergoing a triple arthrodesis of right foot secondary to acquired deformity of right foot. Surgical procedure was completed by Dr. Dey. Patient being admitted under our services for medical management and placement in SNF. [facility]. Physical exam: Vital signs reviewed and stable. General: Nontoxic, no distress and appears stated age. Derm: Skin warm and dry, normal coloration for ethnicity. Head: Atraumatic, normocephalic and symmetric. Eyes: EOM's intact, no lid lag, and anicteric sclera Mouth: no lip lesions, mucus membranes moist Cardiovascular: regular rate and rhythm with normal S1S2, no murmur, positive posterior tibial pulses bilaterally, and cap refill < 2 seconds. Lungs: Respirations even, regular, and unlabored on room air. Lungs CTA bilaterally, no rhonchi, no rales, no wheezing, and no accessory muscle usage. Abdominal: soft, nontender to palpation, no guarding, no appreciable organomegaly Ext: No gross muscle atrophy, no edema, no contractures. Movement and sensation intact. Postoperative dressing/Ortho-Glass splint in place right lower extremity/foot. Neuro: Speech clear, face symmetrical and CN II-XII grossly intact with no noted focal neuro deficits Psych: Alert and oriented to person, place, time, and situation. Appropriate and pleasant affect. A total of 33 minutes of time were spent preparing this complex discharge summary. Pt was discharged on 10/16/2024 at 1:50 PM. Patient was seen independently by Nurse Practitioner. This document was prepared using [employer] dictation software. Please allow for errors in insurance claims clerk while rare they do occur. Joseph Petersen NP rendered care for this patient independently, reviewed the findings and plan as documented in the note above. I did not physically speak with or examine the patient on this date. Patient Condition at Discharge: Stable Plan - Discharge Summary Discharge Rx Participant: No New Discharge Prescriptions: New HYDROcodone/APAP 5-325MG [[place] 5-325] 2 each PO Q6HR PRN #24 tab PRN Reason: Pain Scale 6 To 10 Pregabalin [Lyrica] 200 mg PO BID #6 cap Continue Pravastatin Sodium [Pravachol] 40 mg PO Q48H rOPINIRole HCL [Requip XL] 2 mg PO BID Cholecalciferol (Vitamin D3) [Vitamin D3 (50 Mcg = 2000 Iu)] 50 mcg PO DAILY Folic Acid 1 mg PO DAILY Aspirin 81 mg PO DAILY Cyanocobalamin (Vitamin B-12) [Vitamin B-12] 1,000 mcg PO DAILY Losartan/Hydrochlorothiazide [Hyzaar 100-25 Tablet] 1 tab PO DAILY oxyBUTYnin chloride [oxyBUTYnin chloride ER] 5 mg PO DAILY Discontinued Pregabalin 200 mg PO BID Hydrocodone/Acetaminophen [[place] 10-325] 1 tab PO TID Discharge Medication List Pravastatin Sodium [Pravachol] 40 mg PO Q48H 06/21/19 [History] Cholecalciferol (Vitamin D3) [Vitamin D3 (50 Mcg = 2000 Iu)] 50 mcg PO DAILY 10/23/23 [History] Cyanocobalamin (Vitamin B-12) [Vitamin B-12] 1,000 mcg PO DAILY 10/23/23 [History] Folic Acid 1 mg PO DAILY 10/23/23 [History] rOPINIRole HCL [Requip XL] 2 mg PO BID 10/23/23 [History] Losartan/Hydrochlorothiazide [Hyzaar 100-25 Tablet] 1 tab PO DAILY 04/29/24 [History] Aspirin 81 mg PO DAILY 10/11/24 [History] oxyBUTYnin chloride [oxyBUTYnin chloride ER] 5 mg PO DAILY 10/11/24 [History] HYDROcodone/APAP 5-325MG [[place] 5-325] 2 each PO Q6HR PRN #24 tab 10/16/24 [Rx] Pregabalin [Lyrica] 200 mg PO BID #6 cap 10/16/24 [Rx] Follow up Appointment(s)/Referral(s): Cecilio Dey DPM [Doctor of Osteopathic Medicine] - 10/23/24 2:00 pm Geno Ag PAC [Primary Care Provider] - 10/24/24 3:20 pm ([facility]) Activity/Diet/Wound Care/Special Instructions: Activity: . Maintain nonweightbearing on the right lower extremity. Diet: Heart healthy and carb consistent diet. Avoid salts, or foods with hidden salts such as canned or boxed foods and frozen dinners. Extra salt makes your heart work harder and traps the fluid in your body for longer. Special Instructions: Take all of your medications as directed and remember to keep all of your doctor's appointments and follow-up as needed. Keep right foot elevated when sitting or in bed Thank you for allowing us to participate in your care, it was truly a pleasure having you for our patient!!! . Discharge Disposition: HOME SELF-CARE
--- NOTE | 2024-10-16 13:58 | P.PN ---
Subjective Progress Note Date: 10/16/24 Hospital course:: Patient is a very pleasant 78-year-old male with a past medical history of hypertension, hyperlipidemia, peripheral neuropathy with restless leg syndrome, and osteoarthritis. He is currently admitted to the hospital after undergoing a triple arthrodesis of right foot secondary to acquired deformity of right foot. Surgical procedure was completed by Dr. Dey. Patient being admitted under our services for medical management and placement in SNF. Physical exam: Patient seen and fully evaluated at bedside he is postoperative day 3 status post right foot triple arthrodesis. Patient reports postoperative pain is better as well as to pain in his left foot also reported as being improved today. Vital signs reviewed and stable. General: Nontoxic, no distress and appears stated age. Derm: Skin warm and dry, normal coloration for ethnicity. Head: Atraumatic, normocephalic and symmetric. Eyes: EOM's intact, no lid lag, and anicteric sclera Mouth: no lip lesions, mucus membranes moist Cardiovascular: regular rate and rhythm with normal S1S2, no murmur, positive posterior tibial pulses bilaterally, and cap refill < 2 seconds. Lungs: Respirations even, regular, and unlabored on room air. Lungs CTA bilaterally, no rhonchi, no rales, no wheezing, and no accessory muscle usage. Abdominal: soft, nontender to palpation, no guarding, no appreciable o rganomegaly Ext: No gross muscle atrophy, no edema, no contractures. Movement and sensation intact. Postoperative dressing/Ortho-Glass splint in place right lower extremity/foot. Neuro: Speech clear, face symmetrical and CN II-XII grossly intact with no noted focal neuro deficits Psych: Alert and oriented to person, place, time, and situation. Appropriate and pleasant affect. Assessment and Plan of Care: Status post right foot triple arthrodesis -Management per orthopedic surgery team including DVT prophylaxis, pain management, wound/dressing management, weightbearing, and PT/OT. -Consult placed to case management for assistance with placement in ECF. Patient requesting [facility]. Left foot and ankle pain -X-ray left foot and ankle negative for acute fracture or dislocation the ankle more T's appears within normal limits. Moderate spurring of the midfoot level is present greatest along the dorsal aspect, linear soft tissue foreign body appeared to be in region of distal second toe patient denies any pain in toe and no open wounds suspicious for injury. Patient reports pain mostly to ankle region and heel of left foot. -Believed to be secondary to increased use and weightbearing all on left foot, patient reports much better today and was able to ambulate/hop on 1 foot with physical therapy this morning without any difficulties. Postoperative blood loss anemia, stable and expected finding Mild thrombocytopenia -Hemoglobin stable at 11.6 and platelet count of 133. Hypertension Monitor vital signs and continue daily medication regimen with losartan/hydrochlorothiazide 100/25 mg tablets daily.- Hyperlipidemia -Continue daily medication regimen with pravastatin 40 mg every 48 hours. Peripheral neuropathy -Continue Requip 2 mg twice daily and Lyrica 200 mg twice daily. Data reviewed: -Labs reviewed showing stable postoperative blood loss anemia with hemoglobin of 11.6 and platelet count of 133. BMP showing sodium 135 and bicarb of 31 otherwise normal findings. Blood glucose was 106. Magnesium 1.8. -Vital signs reviewed. Blood pressure 125/71, heart rate 64, respiratory rate 18, temp 98.2 F, and SpO2 of 94% on room air. -X-ray left foot and ankle negative for acute fracture or dislocation the ankle more T's appears within normal limits. Moderate spurring of the midfoot level is present greatest along the dorsal aspect, linear soft tissue foreign body appeared to be in region of distal second toe patient denies any pain in toe and no open wounds suspicious for injury. CODE STATUS: Full code DVT prophylaxis: SCDs Anticipated discharge date: Pending placement in SNF Anticipated discharge place: SNF Patient was seen independently by Nurse Practitioner. This document was prepared using [employer] dictation software. Please allow for errors in front loader residential driver while rare they do occur. Joseph Petersen NP rendered care for this patient independently, reviewed the findings and plan as documented in the note above and agree with plan. I did not physically speak with or examine the patient on this date. Objective - Vital Signs Vital signs: Vital Signs Temp 98.4 F 10/16/24 01:54 Pulse 69 10/16/24 01:54 Resp 17 10/16/24 01:54 BP 136/65 10/16/24 01:54 Pulse Ox 95 10/16/24 01:54 FiO2 Intake & Output 10/15/24 10/16/24 10/16/24 18:59 06:59 18:59 Other: Voiding Method Urinal # Voids 1 2 - Labs CBC & Chem 7: 03/23/25 09:52 10/15/24 09:52 Labs: Abnormal Lab Results - Last 24 Hours (Table) 10/15/24 10/15/24 Range/Units 09:52 09:52 RBC 3.94 L (4.30-5.90) m/uL Hgb 11.6 L (13.0-17.5) gm/dL Hct 35.3 L (39.0-53.0) % Plt Count 133 L (150-450) k/uL Sodium 135 L (137-145) mmol/L Carbon Dioxide 31 H (22-30) mmol/L Glucose 106 H (74-99) mg/dL
--- NOTE | 2024-10-16 16:46 | P.PN ---
Subjective Progress Note Date: 10/16/24 Patient visited at bedside. Patient is postop day #3 following triple arthrodesis of the right foot. Patient is doing well. The right lower extremity nerve block has worn off. Pain is not constant; mainly short lived, sharp, shooting pain. Denies nausea, vomiting, fever, chills, calf pain or shortness of breath. Awaiting placement in rehab upon discharge Objective - Vital Signs Vital signs: Vital Signs Temp 98.2 F 10/16/24 06:45 Pulse 64 10/16/24 06:45 Resp 18 10/16/24 06:45 BP 125/71 10/16/24 06:45 Pulse Ox 94 L 10/16/24 06:45 FiO2 Intake & Output 10/15/24 10/16/24 10/16/24 18:59 06:59 18:59 Intake Total 350 Balance 350 Intake: Oral 350 Other: Voiding Method Urinal # Voids 1 1 - Labs CBC & Chem 7: 10/15/24 09:52 10/15/24 09:52 Assessment and Plan (1) Other acquired deformities of right foot Current Visit: Yes Status: Acute Code(s): M21.6X1 - OTHER ACQUIRED DEFORMITIES OF RIGHT FOOT SNOMED Code(s): 974049539 (2) Subluxation of tarsal joint of right foot, subsequent encounter Current Visit: Yes Status: Acute Code(s): S93.311D - SUBLUXATION OF TARSAL JOINT OF RIGHT FOOT, SUBS ENCNTR SNOMED Code(s): 82386534787262414 Plan: Patient will be d/c'd to rehab facility Discharge orders written Patient will f/u with Dr. Dey on 10-23-24
--- NOTE | 2024-10-19 09:26 | CDI ---
Documentation Clarification Form Date: 10/16/24 From: Molly Wilson Admit Date: 10/13/2024 10:09:00 AM Patient Name: Shabbir Obando Visit Number: [id number] Discharge Date: 10/16/2024 04:49:00 PM ATTENTION: The Clinical Documentation Specialists (CDI) and [facility] Coding Staff appreciate your assistance in clarifying documentation. Please respond to the clarification below the line at the bottom and electronically sign. The CDI & [facility] Coding staff will review the response and follow-up if needed. Please note: Queries are made part of the Legal Health Record. If you have any questions, please contact the author of this message via ITS. Doctor/Provider: May Montes De Oca, Hyponatremia is documented in the H&P which may lack sufficient clinical evidence/support in the medical record. Additional clarification is requested. History/Risk Factors: Hypertension,hyperlipidemia,peripheral neuropathywithrestless leg syndrome Clinical Indicators: BMPshowing mildhyponatremia with sodium (10/13) 136, (10/14) 140 and (10/15) 135 Normal range: 137-145 Treatment: No IV fluids given Please clarify if hyponatremia] is a valid diagnosis? [ x] No, Hyponatremia is ruled out [ ] Yes, Hyponatremia is present as evidence by (additional clinical support): [ ] Other (please specify diagnosis) [ ] Unable to determine MTDD
== END 2024-10-16 16:49 | DRG 504 ==
LOC: OR 05:34 → 4SSUR 10:09 → OR 12:00
PROVIDERS: ADMIT Student in an Organized Health Care Education/Training Program; ATTEND Student in an Organized Health Care Education/Training Program
PROC: 0SGH04Z Fusion of Right Tarsal Joint with Internal Fixation Device, Open Approach (ICD-10-PCS; principal; 2024-10-13 07:30)
PROC: 0SGH0KZ Fusion of Right Tarsal Joint with Nonautologous Tissue Substitute, Open Approach (ICD-10-PCS; principal; 2024-10-13 07:30)
DX: M21.961 Unspecified acquired deformity of right lower leg (principal); D62 Acute posthemorrhagic anemia; D69.6 Thrombocytopenia, unspecified; I10 Essential (primary) hypertension; G25.81 Restless legs syndrome; K76.0 Fatty (change of) liver, not elsewhere classified; S93.31 Subluxation and dislocation of tarsal joint; G62.9 Polyneuropathy, unspecified; M79.5 Residual foreign body in soft tissue; E78.5 Hyperlipidemia, unspecified; Z79.82 Long term (current) use of aspirin; Z79.891 Long term (current) use of opiate analgesic; Z79.899 Other long term (current) drug therapy; Z86.73 Personal history of transient ischemic attack (TIA), and cerebral infarction without residual deficits; Z85.46 Personal history of malignant neoplasm of prostate; Z87.891 Personal history of nicotine dependence; Z88.5 Allergy status to narcotic agent
CPT/HCPCS: 64445; 64447; 80048; 80053; 83735; 85027